=== PATIENT | male | born 1950 | race Caucasian/White ===

== ENCOUNTER 2019-02-02 09:07 | Inpatient (IN) | payer OTHER ==
[2019-02-02] VITALS (8 sets, daily range): BP systolic 102–130; BP diastolic 84–91
[~2019-02-02] VITALS: Ht 177.8 cm; Wt 70.3 kg
--- OUTSIDE RECORDS SUMMARY | 2019-02-02 09:10 | XMS REPORT | Clinical Summary ---
Author Author ARMINDA [facility] Address Unknown Phone Unavailable Care Team Providers Care Supervisor [employer] Name Role Phone Pcp, No PCP Unavailable Allergies Comments Active Allergy Reactions Severity Noted Date Povidone-Iodine (With Rash Low 01/17/2019 Soap) Clopidogrel Itching 01/17/2019 Medications End Date Status Medication Sig Dispensed Refills Start Date Active METOPROLOL SUCCINATE ORAL Take 12.5 mg 0 by mouth 9 daily . Active tamsulosin (FLOMAX) 0.4 Take 0.4 mg 0 mg Cap 24 hr capsule by mouth daily. Active escitalopram oxalate Take 20 mg by 0 (LEXAPRO) 20 MG tablet mouth daily. Active potassium chloride SA Take 20 mEq 0 (K-DUR,KLOR-CON) 20 MEQ by mouth tablet daily. Active apixaban (ELIQUIS) 2.5 mg Take 2.5 mg 0 Tab tablet by mouth 2 (two) times daily. Active nitroglycerin (NITROSTAT) Place 0.4 mg 0 0.4 MG SL tablet under the tongue every 5 (five) minutes as needed for Chest pain Put 1 pill under tongue every 5min as needed for chest pain.No more than 3 doses in 15min.Call 911 if pain is unrelieved 5min after 1st dose . Active atorvastatin (LIPITOR) 40 Take 40 mg by 0 MG tablet mouth daily. 02/01/2020 Active ferrous sulfate 325 (65 Take 1 tablet 60 tablet 11 FE) MG tablet (325 mg 9 total) by mouth 2 (two) times daily. 03/03/2019 Active sacubitril-valsartan Take 1 tablet 60 tablet 0 (ENTRESTO) 24-26 mg Tab by mouth 2 9 (two) times daily for 30 days. 02/02/2020 Active torsemide (DEMADEX) 20 MG Take 1 tablet 30 tablet 11 tablet (20 mg total) 9 by mouth daily. 03/04/2019 Active lactulose (CHRONULAC) 20 Take 30 mLs 900 mL 0 gram/30 mL solution (20 g total) 9 by mouth daily for 30 days. 02/02/2020 Active aspirin 81 MG EC tablet Take 1 tablet 30 tablet 11 (81 mg total) 9 by mouth daily. 02/16/2019 Active magnesium oxide 500 mg Take 1 tablet 45 tablet 0 Tab (500 mg 9 total) by mouth 3 (three) times daily for 15 days. 02/01/2019 Discontinued lisinopril Take 2.5 mg 0 (PRINIVIL,ZESTRIL) 2.5 MG by mouth 9 tablet daily. 02/01/2019 Discontinued furosemide (LASIX) 40 MG Take 40 mg by 0 tablet mouth daily. Active Problems Problem Noted Date Acute on chronic systolic heart failure 01/18/2019 CAD (coronary artery disease) 01/18/2019 Ischemic cardiomyopathy 01/18/2019 Shock liver 01/17/2019 Acute metabolic encephalopathy 01/17/2019 Acute liver failure 01/16/2019 Encounters Care Team Description Date Type Specialty Mary Sevilla MD L CATH & PCI 01/25/2019 Surgery 01/18/2019 Orders Only General Internal Medicine 01/17/2019 Travel Cali Vazquez MD Changela, MD Vee Darnell, MD Fermin Odell, MD Alie Asher, Tiffanie Crystal MD Acute metabolic encephalopathy (Primary Dx); Acute respiratory failure with hypoxemia (HCC); Acute hepatic encephalopathy; Acute pulmonary edema (HCC); Cardiogenic shock (HCC); Shock liver; Abnormal liver enzymes; Acute on chronic systolic (congestive) heart failure (HCC); Coronary artery disease involving red cliff heart without angina pectoris, unspecified vessel or lesion type; Ischemic cardiomyopathy; Atrial fibrillation, unspecified type (HCC); Chronic anticoagulation; Coagulopathy (HCC); 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 pectoris (HCC); Acute on chronic systolic heart failure (HCC); Acute liver failure without hepatic coma; Coronary artery disease involving red cliff coronary artery of red cliff heart without angina pectoris 01/16/2019 Hospital Cardiology - Encounter 02/01/2019 after 02/01/2018 Family History Medical History Relation Name Comments No Known Problem Father Heart disease Mother Relation Name Status Comments Father Mother Social History Date Tobacco Use Types Packs/Day Years Used Current Every Day Smoker 0.25 50 Alcohol Use Drinks/Week oz/Week Comments No Alcohol Habits Answer Date Recorded How often do you have a drink containing alcohol? Never 01/17/2019 How many drinks containing alcohol do you have on Not asked a typical day when you are drinking? How often do you have six or more drinks on one Not asked occasion? Sex Assigned at Date Recorded Not on file Industry Job Start Date Occupation Not on file Not on file Not on file Travel End Travel History Travel Start No recent travel history available. Last Filed Vital Signs Time Taken Vital Sign Reading 02/01/2019 5:16 PM CDT Blood Pressure 93/63 02/01/2019 5:16 PM CDT Pulse 81 02/01/2019 5:16 PM CDT Temperature 36.3 C (97.4 F) 02/01/2019 5:16 PM CDT Respiratory Rate 18 02/01/2019 5:16 PM CDT Oxygen Saturation 97% 01/16/2019 11:00 PM CDT Inhaled Oxygen 100% Concentration 02/01/2019 7:29 AM CDT Weight 68.5 kg (151 lb) 01/17/2019 8:15 PM CDT Height 177.8 cm (5' 10") 02/01/2019 7:29 AM CDT Body Mass Index 21.67 Plan of Treatment Not on file Procedures Comments Procedure Name Priority Date/Time Associated Diagnosis POCT-GLUCOSE METER Routine 02/01/2019 6:04 PM CDT XR CHEST 1 VIEW Routine 02/01/2019 PORTABLE/BEDSIDE 9:12 AM CDT POCT-GLUCOSE METER Routine 02/01/2019 7:35 AM CDT CBC W/PLT COUNT & AUTO Routine 02/01/2019 DIFFERENTIAL 4:37 AM CDT OXYGEN SATURATION, STAT 02/01/2019 MEASURED 4:37 AM CDT MAGNESIUM Routine 02/01/2019 4:37 AM CDT COMPREHENSIVE METABOLIC Routine 02/01/2019 PANEL 4:37 AM CDT CBC W/PLT COUNT & AUTO Routine 02/01/2019 DIFFERENTIAL 4:37 AM CDT POCT-GLUCOSE METER Routine 01/31/2019 11:56 PM CDT POCT-GLUCOSE METER Routine 01/31/2019 8:04 PM CDT POCT-GLUCOSE METER Routine 01/31/2019 12:54 PM CDT XR CHEST 1 VIEW Routine 01/31/2019 PORTABLE/BEDSIDE 8:29 AM CDT (CELLAVISION MANUAL DIFF) Routine 01/31/2019 5:13 AM CDT CBC W/PLT COUNT & AUTO Routine 01/31/2019 DIFFERENTIAL 5:13 AM CDT OXYGEN SATURATION, STAT 01/31/2019 MEASURED 5:13 AM CDT MAGNESIUM Routine 01/31/2019 5:13 AM CDT COMPREHENSIVE METABOLIC Routine 01/31/2019 PANEL 5:13 AM CDT CBC W/PLT COUNT & AUTO Routine 01/31/2019 DIFFERENTIAL 5:13 AM CDT POCT-GLUCOSE METER Routine 01/30/2019 9:13 PM CDT POCT-GLUCOSE METER Routine 01/30/2019 5:08 PM CDT POCT-GLUCOSE METER Routine 01/30/2019 12:51 PM CDT XR CHEST 1 VIEW Routine 01/30/2019 PORTABLE/BEDSIDE 8:44 AM CDT CBC W/PLT COUNT & AUTO Routine 01/30/2019 DIFFERENTIAL 3:53 AM CDT B-TYPE NATRIURETIC FACTOR Routine 01/30/2019 (BNP) 3:53 AM CDT OXYGEN SATURATION, STAT 01/30/2019 MEASURED 3:53 AM CDT MAGNESIUM Routine 01/30/2019 3:53 AM CDT COMPREHENSIVE METABOLIC Routine 01/30/2019 PANEL 3:53 AM CDT CBC W/PLT COUNT & AUTO Routine 01/30/2019 DIFFERENTIAL 3:53 AM CDT POCT-GLUCOSE METER Routine 01/29/2019 9:09 PM CDT POCT-GLUCOSE METER Routine 01/29/2019 5:10 PM CDT POCT-GLUCOSE METER Routine 01/29/2019 1:48 PM CDT POCT-GLUCOSE METER Routine 01/29/2019 8:27 AM CDT XR CHEST 1 VIEW Routine 01/29/2019 PORTABLE/BEDSIDE 6:05 AM CDT (CELLAVISION MANUAL DIFF) Routine 01/29/2019 4:30 AM CDT CBC W/PLT COUNT & AUTO Routine 01/29/2019 DIFFERENTIAL 4:30 AM CDT OXYGEN SATURATION, STAT 01/29/2019 MEASURED 4:30 AM CDT MAGNESIUM Routine 01/29/2019 4:30 AM CDT COMPREHENSIVE METABOLIC Routine 01/29/2019 PANEL 4:30 AM CDT CBC W/PLT COUNT & AUTO Routine 01/29/2019 DIFFERENTIAL 4:30 AM CDT POCT-GLUCOSE METER Routine 01/28/2019 9:03 PM CDT POCT-GLUCOSE METER Routine 01/28/2019 5:52 PM CDT POCT-GLUCOSE METER Routine 01/28/2019 1:46 PM CDT XR CHEST 1 VIEW Routine 01/28/2019 PORTABLE/BEDSIDE 9:14 AM CDT POCT-GLUCOSE METER Routine 01/28/2019 8:56 AM CDT CBC W/PLT COUNT & AUTO Routine 01/28/2019 DIFFERENTIAL 5:13 AM CDT OXYGEN SATURATION, STAT 01/28/2019 MEASURED 5:13 AM CDT MAGNESIUM Routine 01/28/2019 5:13 AM CDT COMPREHENSIVE METABOLIC Routine 01/28/2019 PANEL 5:13 AM CDT CBC W/PLT COUNT & AUTO Routine 01/28/2019 DIFFERENTIAL 5:13 AM CDT POCT-GLUCOSE METER Routine 01/27/2019 9:34 PM CDT POCT-GLUCOSE METER Routine 01/27/2019 6:24 PM CDT POCT-GLUCOSE METER Routine 01/27/2019 5:40 PM CDT POCT-GLUCOSE METER Routine 01/27/2019 1:19 PM CDT POCT-GLUCOSE METER Routine 01/27/2019 8:41 AM CDT XR CHEST 1 VIEW Routine 01/27/2019 PORTABLE/BEDSIDE 7:11 AM CDT CBC W/PLT COUNT & AUTO Routine 01/27/2019 DIFFERENTIAL 5:07 AM CDT OXYGEN SATURATION, STAT 01/27/2019 MEASURED 5:07 AM CDT MAGNESIUM Routine 01/27/2019 5:07 AM CDT COMPREHENSIVE METABOLIC Routine 01/27/2019 PANEL 5:07 AM CDT CBC W/PLT COUNT & AUTO Routine 01/27/2019 DIFFERENTIAL 5:07 AM CDT POCT-GLUCOSE METER Routine 01/26/2019 10:11 PM CDT XR CHEST 1 VIEW Routine 01/26/2019 PORTABLE/BEDSIDE 9:32 AM CDT CBC W/PLT COUNT & AUTO Routine 01/26/2019 DIFFERENTIAL 6:47 AM CDT MAGNESIUM Routine 01/26/2019 6:47 AM CDT COMPREHENSIVE METABOLIC Routine 01/26/2019 PANEL 6:47 AM CDT CBC W/PLT COUNT & AUTO Routine 01/26/2019 DIFFERENTIAL 6:47 AM CDT POCT-GLUCOSE METER Routine 01/25/2019 9:47 PM CDT L CATH & PCI 01/25/2019 Heart failure, 2:00 PM CDT unspecified HF chronicity, unspecified heart failure type (HCC) XR CHEST 1 VIEW Routine 01/25/2019 PORTABLE/BEDSIDE 10:17 AM CDT POCT-GLUCOSE METER Routine 01/25/2019 9:31 AM CDT CBC W/PLT COUNT & AUTO Routine 01/25/2019 DIFFERENTIAL 4:27 AM CDT FERRITIN Routine 01/25/2019 4:27 AM CDT IRON, TIBC, % SAT. Routine 01/25/2019 (WITHOUT FERRITIN) 4:27 AM CDT OXYGEN SATURATION, STAT 01/25/2019 MEASURED 4:27 AM CDT MAGNESIUM Routine 01/25/2019 4:27 AM CDT COMPREHENSIVE METABOLIC Routine 01/25/2019 PANEL 4:27 AM CDT CBC W/PLT COUNT & AUTO Routine 01/25/2019 DIFFERENTIAL 4:27 AM CDT POCT-GLUCOSE METER Routine 01/24/2019 9:32 PM CDT POCT-GLUCOSE METER Routine 01/24/2019 5:32 PM CDT POCT-GLUCOSE METER Routine 01/24/2019 11:50 AM CDT XR CHEST 1 VIEW Routine 01/24/2019 PORTABLE/BEDSIDE 8:46 AM CDT POCT-GLUCOSE METER Routine 01/24/2019 8:22 AM CDT CBC W/PLT COUNT & AUTO Routine 01/24/2019 DIFFERENTIAL 4:51 AM CDT OXYGEN SATURATION, STAT 01/24/2019 MEASURED 4:51 AM CDT MAGNESIUM Routine 01/24/2019 4:51 AM CDT COMPREHENSIVE METABOLIC Routine 01/24/2019 PANEL 4:51 AM CDT CBC W/PLT COUNT & AUTO Routine 01/24/2019 DIFFERENTIAL 4:51 AM CDT POCT-GLUCOSE METER Routine 01/23/2019 10:05 PM CDT POCT-GLUCOSE METER Routine 01/23/2019 4:02 PM CDT POCT-GLUCOSE METER Routine 01/23/2019 11:51 AM CDT POCT-GLUCOSE METER Routine 01/23/2019 7:34 AM CDT CBC W/PLT COUNT & AUTO Routine 01/23/2019 DIFFERENTIAL 4:00 AM CDT OXYGEN SATURATION, STAT 01/23/2019 MEASURED 4:00 AM CDT PHOSPHORUS Routine 01/23/2019 4:00 AM CDT MAGNESIUM Routine 01/23/2019 4:00 AM CDT COMPREHENSIVE METABOLIC Routine 01/23/2019 PANEL 4:00 AM CDT CBC W/PLT COUNT & AUTO Routine 01/23/2019 DIFFERENTIAL 4:00 AM CDT XR CHEST 1 VIEW Routine 01/23/2019 PORTABLE/BEDSIDE 3:19 AM CDT POCT-GLUCOSE METER Routine 01/22/2019 10:32 PM CDT POCT-GLUCOSE METER Routine 01/22/2019 6:47 PM CDT POCT-GLUCOSE METER Routine 01/22/2019 1:53 PM CDT MAGNESIUM Routine 01/22/2019 9:15 AM CDT POTASSIUM Routine 01/22/2019 9:15 AM CDT POCT-GLUCOSE METER Routine 01/22/2019 7:53 AM CDT XR CHEST 1 VIEW Routine 01/22/2019 PORTABLE/BEDSIDE 3:50 AM CDT CBC W/PLT COUNT & AUTO Routine 01/22/2019 DIFFERENTIAL 2:45 AM CDT VITAMIN B12 AND FOLATE Routine 01/22/2019 2:45 AM CDT OXYGEN SATURATION, STAT 01/22/2019 MEASURED 2:45 AM CDT PHOSPHORUS Routine 01/22/2019 2:45 AM CDT MAGNESIUM Routine 01/22/2019 2:45 AM CDT COMPREHENSIVE METABOLIC Routine 01/22/2019 PANEL 2:45 AM CDT CBC W/PLT COUNT & AUTO Routine 01/22/2019 DIFFERENTIAL 2:45 AM CDT POCT-GLUCOSE METER Routine 01/21/2019 9:09 PM CDT LACTIC ACID, VENOUS Routine 01/21/2019 8:25 PM CDT LACTIC ACID, VENOUS Routine 01/21/2019 5:17 PM CDT OXYGEN SATURATION, STAT 01/21/2019 MEASURED 1:52 PM CDT POCT-GLUCOSE METER Routine 01/21/2019 12:23 PM CDT MAGNESIUM Routine 01/21/2019 11:02 AM CDT POTASSIUM Routine 01/21/2019 11:02 AM CDT POCT-GLUCOSE METER Routine 01/21/2019 7:36 AM CDT CBC W/PLT COUNT & AUTO Routine 01/21/2019 DIFFERENTIAL 4:11 AM CDT PHOSPHORUS Routine 01/21/2019 4:11 AM CDT PROTHROMBIN TIME/INR Routine 01/21/2019 4:11 AM CDT MAGNESIUM Routine 01/21/2019 4:11 AM CDT COMPREHENSIVE METABOLIC Routine 01/21/2019 PANEL 4:11 AM CDT CBC W/PLT COUNT & AUTO Routine 01/21/2019 DIFFERENTIAL 4:11 AM CDT XR CHEST 1 VIEW Routine 01/21/2019 PORTABLE/BEDSIDE 3:19 AM CDT POCT-GLUCOSE METER Routine 01/20/2019 10:59 PM CDT XR CHEST 1 VIEW STAT 01/20/2019 PORTABLE/BEDSIDE 8:29 PM CDT POCT-GLUCOSE METER Routine 01/20/2019 5:23 PM CDT MAGNESIUM Routine 01/20/2019 2:29 PM CDT POTASSIUM Routine 01/20/2019 2:29 PM CDT NM MYOCARDIAL VIABILITY Routine 01/20/2019 EVALUATION PET 1:48 PM CDT POCT-GLUCOSE METER Routine 01/20/2019 1:13 PM CDT POCT-GLUCOSE METER Routine 01/20/2019 11:27 AM CDT POCT-GLUCOSE METER Routine 01/20/2019 9:59 AM CDT XR CHEST 1 VIEW Routine 01/20/2019 PORTABLE/BEDSIDE 7:45 AM CDT POCT-GLUCOSE METER Routine 01/20/2019 7:42 AM CDT CBC W/PLT COUNT & AUTO Routine 01/20/2019 DIFFERENTIAL 3:34 AM CDT OXYGEN SATURATION, ADRYAN 01/20/2019 MEASURED 3:34 AM CDT PROTHROMBIN TIME/INR Routine 01/20/2019 3:34 AM CDT PHOSPHORUS Routine 01/20/2019 3:34 AM CDT MAGNESIUM Routine 01/20/2019 3:34 AM CDT BILIRUBIN, DIRECT Routine 01/20/2019 3:34 AM CDT COMPREHENSIVE METABOLIC Routine 01/20/2019 PANEL 3:34 AM CDT CBC W/PLT COUNT & AUTO Routine 01/20/2019 DIFFERENTIAL 3:34 AM CDT POCT-GLUCOSE METER Routine 01/19/2019 9:42 PM CDT POCT-GLUCOSE METER Routine 01/19/2019 6:29 PM CDT POCT-GLUCOSE METER Routine 01/19/2019 3:33 PM CDT MAGNESIUM Routine 01/19/2019 2:54 PM CDT POTASSIUM Routine 01/19/2019 2:54 PM CDT XR CHEST 1 VIEW Routine 01/19/2019 PORTABLE/BEDSIDE 1:10 PM CDT POCT-GLUCOSE METER Routine 01/19/2019 5:51 AM CDT CBC W/PLT COUNT & AUTO Routine 01/19/2019 DIFFERENTIAL 5:26 AM CDT OXYGEN SATURATION, ADRYAN 01/19/2019 MEASURED 5:26 AM CDT PROTHROMBIN TIME/INR Routine 01/19/2019 5:26 AM CDT PHOSPHORUS Routine 01/19/2019 5:26 AM CDT MAGNESIUM Routine 01/19/2019 5:26 AM CDT BILIRUBIN, DIRECT Routine 01/19/2019 5:26 AM CDT COMPREHENSIVE METABOLIC Routine 01/19/2019 PANEL 5:26 AM CDT CBC W/PLT COUNT & AUTO Routine 01/19/2019 DIFFERENTIAL 5:26 AM CDT POCT-GLUCOSE METER Routine 01/18/2019 9:43 PM CDT TRANSFUSION SERVICE 01/18/2019 REPORT - SCAN 6:06 PM CDT POCT-GLUCOSE METER Routine 01/18/2019 5:48 PM CDT ECG 12-LEAD Routine 01/18/2019 2:30 PM CDT Procedure Note - Interface, External Ris In - 01/18/2019 2:45 PM CDT Ventricula r Rate 87 BPM Atrial Rate 105 BPM QRS Duration 178 ms Q-T Interval 444 ms QTC Calculatio n(Bazett) 534 ms P [place] 108 degrees R [place] 162 degrees T [place] -7 degrees AV dual-paced rhythm with frequent ventricula r-paced complexes and with occasional Premature ventricula r complexes Biventricu lar pacemaker detected Abnormal ECG ECG 12-LEAD ADRYAN 01/18/2019 2:30 PM CDT OXYGEN SATURATION, Routine 01/18/2019 MEASURED 1:46 PM CDT CREATINE KINASE (CK) Routine 01/18/2019 1:45 PM CDT AMMONIA Routine 01/18/2019 1:45 PM CDT LACTIC ACID, VENOUS Routine 01/18/2019 1:45 PM CDT XR CHEST 1 VIEW Routine 01/18/2019 PORTABLE/BEDSIDE 1:25 PM CDT POCT-GLUCOSE METER Routine 01/18/2019 7:59 AM CDT US DOPPLER Routine 01/18/2019 7:45 AM CDT US ABDOMEN COMPLETE Routine 01/18/2019 7:45 AM CDT CBC W/PLT COUNT & AUTO Routine 01/18/2019 DIFFERENTIAL 3:16 AM CDT PHOSPHORUS Routine 01/18/2019 3:16 AM CDT MAGNESIUM Routine 01/18/2019 3:16 AM CDT BILIRUBIN, DIRECT Routine 01/18/2019 3:16 AM CDT COMPREHENSIVE METABOLIC Routine 01/18/2019 PANEL 3:16 AM CDT CBC W/PLT COUNT & AUTO Routine 01/18/2019 DIFFERENTIAL 3:16 AM CDT POCT-GLUCOSE METER Routine 01/17/2019 10:10 PM CDT ECHOCARDIOGRAM REPORT - 01/17/2019 SCAN 9:24 PM CDT POCT-GLUCOSE METER Routine 01/17/2019 6:11 PM CDT OXYGEN SATURATION, Routine 01/17/2019 MEASURED 6:06 PM CDT XR CHEST 1 VIEW STAT 01/17/2019 PORTABLE/BEDSIDE 6:02 PM CDT XR CHEST 1 VIEW STAT 01/17/2019 PORTABLE/BEDSIDE 5:50 PM CDT ICD CHECK Routine 01/17/2019 3:30 PM CDT BASIC METABOLIC PANEL (7) Routine 01/17/2019 1:54 PM CDT PROTHROMBIN TIME/INR Routine 01/17/2019 1:54 PM CDT POCT-GLUCOSE METER Routine 01/17/2019 1:07 PM CDT LACTIC ACID, VENOUS Routine 01/17/2019 12:33 PM CDT TROPONIN I Routine 01/17/2019 12:33 PM CDT MRSA SCREEN Routine 01/17/2019 10:29 AM CDT ACETAMINOPHEN LEVEL Routine 01/17/2019 10:12 AM CDT PROCALCITONIN Routine 01/17/2019 10:12 AM CDT POCT-GLUCOSE METER Routine 01/17/2019 9:58 AM CDT AMMONIA Routine 01/17/2019 9:13 AM CDT CBC W/PLT COUNT & AUTO Routine 01/17/2019 DIFFERENTIAL 5:54 AM CDT MAGNESIUM Routine 01/17/2019 5:54 AM CDT BASIC METABOLIC PANEL (7) Routine 01/17/2019 5:54 AM CDT CBC W/PLT COUNT & AUTO Routine 01/17/2019 DIFFERENTIAL 5:54 AM CDT ACETAMINOPHEN LEVEL STAT 01/17/2019 5:54 AM CDT LACTIC ACID, VENOUS Routine 01/17/2019 5:54 AM CDT TROPONIN I Routine 01/17/2019 5:54 AM CDT 2D ECHO W/ DOPPLER STAT 01/17/2019 (CW/PW/COLOR) 1:59 AM CDT ABORH, MANUAL STAT 01/17/2019 1:01 AM CDT CREATINE KINASE (CK) STAT 01/17/2019 1:01 AM CDT MAGNESIUM STAT 01/17/2019 1:01 AM CDT PHOSPHORUS STAT 01/17/2019 1:01 AM CDT CREATININE, RANDOM URINE Routine 01/17/2019 12:14 AM CDT UREA NITROGEN, RANDOM Routine 01/17/2019 URINE 12:14 AM CDT SODIUM, RANDOM URINE Routine 01/17/2019 12:14 AM CDT RAPID DRUG SCREEN, URINE Routine 01/17/2019 12:14 AM CDT T SPOT TB Routine 01/17/2019 12:07 AM CDT BLOOD CULTURE Routine 01/17/2019 12:06 AM CDT TYPE AND SCREEN, STAT 01/17/2019 AUTOMATED 12:01 AM CDT EBV ANTIBODY, IGM Routine 01/17/2019 12:01 AM CDT EBV ANTIBODY, IGG Routine 01/17/2019 12:01 AM CDT CYTOMEGALOVIRUS ANTIBODY, Routine 01/17/2019 IGM 12:01 AM CDT CYTOMEGALOVIRUS ANTIBODY, Routine 01/17/2019 IGG 12:01 AM CDT RPR Routine 01/17/2019 12:01 AM CDT HEPATITIS B CORE Routine 01/17/2019 ANTIBODY, TOTAL 12:01 AM CDT HEPATITIS B SURFACE Routine 01/17/2019 ANTIBODY 12:01 AM CDT ETHANOL Routine 01/17/2019 12:01 AM CDT CERULOPLASMIN Routine 01/17/2019 12:01 AM CDT [id number]\\, Routine 01/17/2019 SERUM 12:01 AM CDT FERRITIN Routine 01/17/2019 12:01 AM CDT IRON, TIBC, % SAT. Routine 01/17/2019 (WITHOUT FERRITIN) 12:01 AM CDT MITOCHONDRIA M2 ANTIBODY Routine 01/17/2019 (IGG) 12:01 AM CDT ACTIN (SMOOTH MUSCLE) Routine 01/17/2019 ANTIBODY, IGG 12:01 AM CDT ANTI-NUCLEAR ANTIBODY Routine 01/17/2019 (GELY) 12:01 AM CDT HIV-1 ANTIGEN WITH STAT 01/17/2019 HIV-1/2 ANTIBODY 12:01 AM CDT FIBRINOGEN STAT 01/17/2019 12:01 AM CDT HEPATITIS PANEL, ACUTE STAT 01/17/2019 12:01 AM CDT AMMONIA STAT 01/17/2019 12:01 AM CDT XR CHEST 1 VIEW STAT 01/16/2019 PORTABLE/BEDSIDE 11:43 PM CDT URINALYSIS W/ REFLEX Routine 01/16/2019 URINE CULTURE 11:18 PM CDT PROTHROMBIN TIME/INR Routine 01/16/2019 11:15 PM CDT PT/APTT Routine 01/16/2019 11:15 PM CDT B-TYPE NATRIURETIC FACTOR Routine 01/16/2019 (BNP) 11:15 PM CDT BLOOD GAS, ARTERIAL STAT 01/16/2019 11:15 PM CDT BLOOD CULTURE Routine 01/16/2019 11:15 PM CDT CBC W/PLT COUNT & AUTO STAT 01/16/2019 DIFFERENTIAL 11:12 PM CDT LACTIC ACID, VENOUS Routine 01/16/2019 11:12 PM CDT CBC W/PLT COUNT & AUTO STAT 01/16/2019 DIFFERENTIAL 11:12 PM CDT TROPONIN I STAT 01/16/2019 11:12 PM CDT COMPREHENSIVE METABOLIC STAT 01/16/2019 PANEL 11:12 PM CDT POCT-GLUCOSE METER Routine 01/16/2019 10:22 PM CDT after 02/01/2018 Results * POC-Glucose meter (02/01/2019 6:04 PM CDT) Only the most recent of 57 results within the time period is included. POC-Glucose Meter 128 (H)Comment: TESTED AT 70 - 110 mg/dL [facility] [address] [facility] [id number] Specimen Blood Performing Organization Address City/State/Zipcode Phone Number [facility] [address] [place] [address] [facility] * XR chest 1 view portable / bedside (02/01/2019 9:12 AM CDT) Only the most recent of 19 results within the time period is included. Specimen Narrative Performed At FINAL REPORT [facility] Portable chest, 02/01/2019 COMPARISON: 01/31/2019 There is been improvement in the appearance of the chest since prior study with essentially total resolution of the interstitial edema. Tiny right pleural effusion is smaller than on the prior study. Heart size remains borderline enlarged. Transvenous and epicardial pacing leads remain. A right-sided PICC line is again seen with its tip in the midsuperior vena cava. Signed: Ines Flores MD Report Verified Date/Time:02/01/2019 10:34:00 Reading Location: [facility] Radiology Reading Room Procedure Note Interface, External Ris In - 02/01/2019 10:36 AM CDT FINAL REPORT Portable chest, 02/01/2019 COMPARISON: 01/31/2019 There is been improvement in the appearance of the chest since prior study with essentially total resolution of the interstitial edema. Tiny right pleural effusion is smaller than on the prior study. Heart size remains borderline enlarged. Transvenous and epicardial pacing leads remain. A right-sided PICC line is again seen with its tip in the midsuperior vena cava. Signed: Ines Flores MD Report Verified Date/Time: 02/01/2019 10:34:00 Reading Location: [facility] Radiology Reading Room Performing Organization Address City/State/Zipcode Phone Number [facility] * Oxygen saturation, measured (02/01/2019 4:37 AM CDT) Only the most recent of 15 results within the time period is included. O2 Saturation (Measured) 57.7 % [facility] Specimen Blood Narrative Performed At PICC line [facility] Performing Organization Address City/State/Zipcode Phone Number [facility] [address] [place] [address] [facility] * CBC with platelet count + automated diff (02/01/2019 4:37 AM CDT) Only the most recent of 17 results within the time period is included. WBC 4.6 3.5 - 10.5 K/L [facility] RBC 3.63 (L) 4.63 - 6.08 M/L [facility] Hemoglobin 10.8 (L) 13.7 - 17.5 GM/DL [facility] Hematocrit 34.7 (L) 40.1 - 51.0 % [facility] MCV 95.6 (H) 79.0 - 92.2 fL [facility] MCH 29.8 25.7 - 32.2 pg [facility] MCHC 31.1 (L) 32.3 - 36.5 GM/DL [facility] RDW 16.8 (H) 11.6 - 14.4 % [facility] Platelets 177 150 - 450 K/CU MM [facility] MPV 10.2 9.4 - 12.4 fL [facility] nRBC 0 0 - 0 /100 WBC [facility] % Neutros 53 % [facility] % Lymphs 32 % [facility] % Monos 9 % [facility] % Eos 5 % [facility] % Baso 1 % [facility] # Neutros 2.43 1.78 - 5.38 K/L [facility] # Lymphs 1.47 1.32 - 3.57 K/L [facility] # Monos 0.39 0.30 - 0.82 K/L [facility] # Eos 0.21 0.04 - 0.54 K/L [facility] # Baso 0.06 0.01 - 0.08 K/L [facility] Immature 0 0 - 1 % [facility] Specimen Blood Performing Organization Address City/State/Zipcode Phone Number [address] * Magnesium (02/01/2019 4:37 AM CDT) Only the most recent of 21 results within the time period is included. Magnesium 2.0 1.6 - 2.6 mg/dL [facility] Specimen Blood Performing Organization Address City/State/Zipcode Phone Number [address] * Comprehensive metabolic panel (02/01/2019 4:37 AM CDT) Only the most recent of 16 results within the time period is included. Protein, Total 5.8 (L) 6.0 - 8.3 gm/dL [facility] Albumin 3.0 (L) 3.5 - 5.0 g/dL [facility] Alkaline Phosphatase 66 40 - 150 U/L [facility] Total Bilirubin 1.0 0.2 - 1.2 mg/dL [facility] Sodium 139 136 - 145 meq/L [facility] Potassium 4.0 3.5 - 5.1 meq/L [facility] Chloride 106 98 - 107 meq/L [facility] CO2 27 22 - 29 meq/L [facility] BUN 20 7 - 21 mg/dL [facility] Creatinine 1.06 0.57 - 1.25 mg/dL [facility] Glucose 102 70 - 105 mg/dL [facility] Calcium 8.9 8.4 - 10.2 mg/dL [facility] AST 25 5 - 34 U/L [facility] ALT 38 6 - 55 U/L [facility] EGFR 69Comment: ESTIMATED GFR IS mL/min/1.73 sq m NOT ACCURATE CREATININE [facility] CLEARANCE IN PREDICTING GLOMERULAR FILTRATION RATE. ESTIMATED GFR IS NOT APPLICABLE FOR DIALYSIS PATIENTS. Specimen Blood Performing Organization Address City/State/Zipcode Phone Number [facility] [address] [place] [address] MEDICAL [facility] * Manual Differential (01/31/2019 5:13 AM CDT) Only the most recent of 2 results within the time period is included. % Neutros 69 % [facility] % Lymphs 26 % [facility] % Monos 2 % [facility] % Eos 3 % [facility] # Neutros 4.00 1.78 - 5.38 K/ul [facility] # Lymphs 1.51 1.32 - 3.57 K/ul [facility] # Monos 0.12 (L) 0.30 - 0.82 K/uL [facility] # Eos 0.17 0.04 - 0.54 K/uL [facility] Total Counted 100 [facility] WBC Morphology Normal [facility] Giant Platelet Present [facility] Poikilocytes 1+ few [facility] Artifact Present [facility] Platelet Conc Adequate [facility] Specimen Blood Narrative Performed At Received comment: User comments: [facility] Slide comments: Performing Organization Address City/[facility] [place] [address] [phone] [place] [address] * B-type Natriuretic Factor (BNP) (01/30/2019 3:53 AM CDT) Only the most recent of 2 results within the time period is included. BNP 1,112 (H) 0 - 100 pg/mL [facility] Specimen Blood Performing Organization Address [facility] [place] [address] [phone] [place] [address] * Iron, TIBC, % sat. (without ferritin) (01/25/2019 4:27 AM CDT) Only the most recent of 2 results within the time period is included. Iron 92.0 40.0 - 160.0 ug/dL [facility] TIBC 300 250 - 450 ug/dL [facility] Iron % Saturation 31 20 - 55 % [facility] Specimen Blood Performing Organization Address City/[facility] Services[facility] Phone Number [address] [phone] [facility] * Ferritin (01/25/2019 4:27 AM CDT) Only the most recent of 2 results within the time period is included. Ferritin 183 5 - 275 ng/mL [facility] Specimen Blood Performing Organization Address City/[facility] Phone Number [address] [phone] [facility] * Phosphorus (01/23/2019 4:00 AM CDT) Only the most recent of 7 results within the time period is included. Phosphorus 2.8Comment: Specimen slightly 2.3 - 4.7 mg/dL [facility] [place] [place] Specimen Blood Performing Organization Address [facility] Phone Number [address] * Potassium (01/22/2019 9:15 AM CDT) Only the most recent of 4 results within the time period is included. Potassium 4.3Comment: Specimen slightly 3.5 - 5.1 meq/L [facility] [place] [place] Specimen Blood Performing Organization Address [facility] Phone Number [address] * Vitamin B12 and Folate (01/22/2019 2:45 AM CDT) Vitamin B12 1,201 (H) 213 - 816 pg/mL [facility] Folate 13.5 >=7.0 ng/mL [facility] Specimen Blood Performing Organization Address [facility] Phone Number [address] * Lactic acid, venous (01/21/2019 8:25 PM CDT) Only the most recent of 6 results within the time period is included. Lactate, Venous 2.0Comment: Specimen slightly 0.5 - 2.2 mmol/L [facility] [place] [place] Specimen Blood Performing Organization Address [facility] Phone Number [address] * Prothrombin time/INR (01/21/2019 4:11 AM CDT) Only the most recent of 5 results within the time period is included. Protime 18.5 (H) 11.7 - 14.7 seconds [facility] INR 1.5 <=5.9 [facility] Specimen Blood Narrative Performed At RECOMMENDED COUMADIN/WARFARIN INR THERAPY RANGES STANDARD DOSE: 2.0 - 3.0 Includes: PROPHYLAXIS for venous thrombosis, [facility] systemic embolization; TREATMENT for venous thrombosis and/or pulmonary embolus. HIGH RISK: Target INR is 2.5-3.5 for patients with mechanical heart valves. Performing Organization Address City/State/Zipcode Phone Number [facility] [address] [place] [address] [facility] * NM PET Cardiac Viability (01/20/2019 1:48 PM CDT) Specimen Narrative Performed At FINAL REPORT [facility] PROCEDURE: MYOCARDIAL METABOLISM PET IMAGING with MYOCARDIAL PERFUSION PET IMAGING (Rest-Only) CPT CODE: 89893, 30363 INDICATION: ischemic cardiomyopathy, assess myocardial viability CARDIOVASCULAR PROFILE: CAD History: Known CAD, ACB, ischemic cardiomyopathy, heart failure with reduced ejection fraction Symptoms: Shortness of breath Risk Factors: CAD, CVA BMI: 20 IMAGING PROTOCOL: Limited low-dose CT imaging was performed for attenuation correction. 40.1 mCi of Rb-82 chloride was injected intravenously at rest, and gated PET images were obtained. Then, dextrose and insulin were administered intravenously per protocol, and 10.8 mCi of F-18 FDG was injected intravenously at rest. Limited low-dose CT imaging was repeated for attenuation correction, and PET images were obtained. REST FINDINGS: Perfusion: There is a marked severity perfusion defect of the basal to mid inferior and inferolateral LV There is a moderate severity perfusion perfusion defect of the mid to apical anterior, apical, and apical septal segments. Metabolism: There is absence of FDG uptake in the mid and basal inferior and inferolateral LV. The remaining segments have lesser decrease in FDG uptake which corresponds to perfusion. Wall Motion: Severe basal to mid inferior and inferolateral hypokinesis, moderate hypokinesis in the remaining segments (LVEF 28%). LV Volume: Increased. RV Volume: Normal. IMPRESSION: 1. Abnormal study. 2. Abnormal myocardial perfusion. There is a large size, marked severity perfusion abnormality in the inferior and inferolateral LV. There is a large size, moderate severity perfusion abnormality in the mid to apical anterior and anterolateral LV. Abnormal myocardial metabolism. There is a large size, marked severity abnormality of glucose metabolism in the mid to basal inferior and inferolateral LV which is nonviable. The remaining segments, while impaired, appear viable. 3. Markedly decreased resting LVEF of 28%. Wall motion and modalities as noted above 4. Normal extracardiac tracer distribution. 5. There is no prior study for comparison. Signed: Mandeep Pichardo MD Report Verified Date/Time:01/20/2019 16:11:04 Reading Location: [address] Reading Room Procedure Note Interface, External Ris In - 01/20/2019 4:13 PM CDT FINAL REPORT PROCEDURE: MYOCARDIAL METABOLISM PET IMAGING with MYOCARDIAL PERFUSION PET IMAGING (Rest-Only) CPT CODE: 70827, 74163 INDICATION: ischemic cardiomyopathy, assess myocardial viability CARDIOVASCULAR PROFILE: CAD History: Known CAD, ACB, ischemic cardiomyopathy, heart failure with reduced ejection fraction Symptoms: Shortness of breath Risk Factors: CAD, CVA BMI: 20 IMAGING PROTOCOL: Limited low-dose CT imaging was performed for attenuation correction. 40.1 mCi of Rb-82 chloride was injected intravenously at rest, and gated PET images were obtained. Then, dextrose and insulin were administered intravenously per protocol, and 10.8 mCi of F-18 FDG was injected intravenously at rest. Limited low-dose CT imaging was repeated for attenuation correction, and PET images were obtained. REST FINDINGS: Perfusion: There is a marked severity perfusion defect of the basal to mid inferior and inferolateral LV There is a moderate severity perfusion perfusion defect of the mid to apical anterior, apical, and apical septal segments. Metabolism: There is absence of FDG uptake in the mid and basal inferior and inferolateral LV. The remaining segments have lesser decrease in FDG uptake which corresponds to perfusion. Wall Motion: Severe basal to mid inferior and inferolateral hypokinesis, moderate hypokinesis in the remaining segments (LVEF 28%). LV Volume: Increased. RV Volume: Normal. IMPRESSION: 1. Abnormal study. 2. Abnormal myocardial perfusion. There is a large size, marked severity perfusion abnormality in the inferior and inferolateral LV. There is a large size, moderate severity perfusion abnormality in the mid to apical anterior and anterolateral LV. Abnormal myocardial metabolism. There is a large size, marked severity abnormality of glucose metabolism in the mid to basal inferior and inferolateral LV which is nonviable. The remaining segments, while impaired, appear viable. 3. Markedly decreased resting LVEF of 28%. Wall motion and modalities as noted above 4. Normal extracardiac tracer distribution. 5. There is no prior study for comparison. Signed: Mandeep Pichardo MD Report Verified Date/Time: 01/20/2019 16:11:04 Reading Location: [address] Reading Room Performing Organization Address City/[facility] Phone Number [facility] * Bilirubin, direct (01/20/2019 3:34 AM CDT) Only the most recent of 3 results within the time period is included. Bilirubin, Direct 1.6 (H) 0.1 - 0.5 mg/dL [facility] Specimen Blood Performing Organization Address [facility] Phone Number [place] [phone] [place] [address] [phone] [place] [address] * TRANSFUSION SERVICE REPORT - SCAN (01/18/2019 6:06 PM CDT) Narrative Performed At * ECG 12 lead (01/18/2019 2:30 PM CDT) Specimen Narrative Performed At Ventricular Rate 87 BPM GE MUSE Atrial Rate 105 BPM QRS Duration 178 ms Q-T Interval 444 ms QTC Calculation(Bazett) 534 ms P [place] 108 degrees R [place] 162 degrees T [place] -7 degrees AV dual-paced rhythm with frequent ventricular-paced complexes and with occasional Premature ventricular complexes Biventricular pacemaker detected Abnormal ECG Confirmed by MD Anthony Roberto ([id number]) on 01/19/2019 11:02:40 AM Procedure Note Interface, External Ris In - 01/19/2019 11:02 AM CDT Ventricular Rate 87 BPM Atrial Rate 105 BPM QRS Duration 178 ms Q-T Interval 444 ms QTC Calculation(Bazett) 534 ms P [place] 108 degrees R [place] 162 degrees T [place] -7 degrees AV dual-paced rhythm with frequent ventricular-paced complexes and with occasional Premature ventricular complexes Biventricular pacemaker detected Abnormal ECG Confirmed by MD Anthony Roberto ([id number]) on 01/19/2019 11:02:40 AM Performing Organization Address City/State/Zipcode Phone Number [facility] * Creatine Kinase (CK) (01/18/2019 1:45 PM CDT) Only the most recent of 2 results within the time period is included. Total CK 764 (H) 29 - 200 U/L [facility] Specimen Blood Performing Organization Address City/[facility]/Zipcode Phone Number [facility] [address] [place] [address] [facility] * Ammonia (01/18/2019 1:45 PM CDT) Only the most recent of 3 results within the time period is included. Ammonia 56Comment: Specimen moderately 18 - 72 mol/L hemolyzed [facility] Specimen Blood Performing Organization Address [facility] Phone Number [facility] [address] [place] [phone] [facility] * US doppler (01/18/2019 7:45 AM CDT) Specimen Narrative Performed At FINAL REPORT [facility] HISTORY : Transaminitis COMPARISON : None. COMMENT : Complete ultrasound examination of the abdomen with color Doppler and spectral evaluation of the abdominal vasculature was performed. The visualized pancreas appears unremarkable. The liver liver is normal in size measuring approximately 15.8 cm in length. The hepatic parenchyma appears mildly increased in echogenicity. No focal hepatic abnormalities are identified. The gallbladder is unremarkable. There is no evidence for cholelithiasis, gallbladder wall thickening, or pericholecystic fluid. There is no intra or extrahepatic biliary ductal dilatation. The common bile duct measures 3 mm. Sonographic Vazquez's sign is negative. The spleen measures 10.1 cm in length and demonstrates an unremarkable sonographic appearance. The right kidney is normal in size measuring 11.6 x 4.8 x 5.4 cm with cortical thickness of 1.2 cm. The left kidney is normal in size measuring 11.8 x 6.1 x 5.3 cm with cortical thickness of 1.3 cm. Cortical echogenicity is within normal limits. There is no evidence for solid renal mass, hydronephrosis, or shadowing calculi. The urinary bladder is collapsed around a Sands catheter. There is a trace amount perihepatic ascites present. Small pleural effusions are noted bilaterally. Vascular: The main portal vein is patent with antegrade flow and diameter of 1.2 cm, within normal limits. Peak systolic velocity is 36.97 m/s. Right and left portal veins are patent with antegrade flow. The proper hepatic artery is patent with resistive index of 0.6. The right left hepatic arteries are patent with resistive index of 0.6 bilaterally. The IVC is patent and unremarkable. The middle, right, and left hepatic veins are patent. The splenic artery and vein are patent. There is aneurysmal dilatation of the mid abdominal aorta measuring up to 4.4 cm in maximal AP diameter. The proximal and distal abdominal aorta is normal in caliber. The main renal artery and veins are patent bilaterally. Impression: 1. Mildly increased hepatic echogenicity which can be seen in the setting of mild hepatic steatosis. 2. Trace perihepatic ascites and small bilateral pleural effusions. 3. 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 Follow-up examination is recommended every 12 months. Additionally, vascular surgery consultation is recommended. 4. Otherwise, unremarkable Doppler evaluation with patent portal venous system. Signed: Roland Morales MD Report Verified Date/Time:01/18/2019 10:18:51 Reading Location: [address] Ultrasound Reading Room Procedure Note Interface, External Ris In - 01/18/2019 10:21 AM CDT FINAL REPORT HISTORY : Transaminitis COMPARISON : None. COMMENT : Complete ultrasound examination of the abdomen with color Doppler and spectral evaluation of the abdominal vasculature was performed. The visualized pancreas appears unremarkable. The liver liver is normal in size measuring approximately 15.8 cm in length. The hepatic parenchyma appears mildly increased in echogenicity. No focal hepatic abnormalities are identified. The gallbladder is unremarkable. There is no evidence for cholelithiasis, gallbladder wall thickening, or pericholecystic fluid. There is no intra or extrahepatic biliary ductal dilatation. The common bile duct measures 3 mm. Sonographic Vazquez's sign is negative. The spleen measures 10.1 cm in length and demonstrates an unremarkable sonographic appearance. The right kidney is normal in size measuring 11.6 x 4.8 x 5.4 cm with cortical thickness of 1.2 cm. The left kidney is normal in size measuring 11.8 x 6.1 x 5.3 cm with cortical thickness of 1.3 cm. Cortical echogenicity is within normal limits. There is no evidence for solid renal mass, hydronephrosis, or shadowing calculi. The urinary bladder is collapsed around a Sands catheter. There is a trace amount perihepatic ascites present. Small pleural effusions are noted bilaterally. Vascular: The main portal vein is patent with antegrade flow and diameter of 1.2 cm, within normal limits. Peak systolic velocity is 36.97 m/s. Right and left portal veins are patent with antegrade flow. The proper hepatic artery is patent with resistive index of 0.6. The right left hepatic arteries are patent with resistive index of 0.6 bilaterally. The IVC is patent and unremarkable. The middle, right, and left hepatic veins are patent. The splenic artery and vein are patent. There is aneurysmal dilatation of the mid abdominal aorta measuring up to 4.4 cm in maximal AP diameter. The proximal and distal abdominal aorta is normal in caliber. The main renal artery and veins are patent bilaterally. Impression: 1. Mildly increased hepatic echogenicity which can be seen in the setting of mild hepatic steatosis. 2. Trace perihepatic ascites and small bilateral pleural effusions. 3. 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 Follow-up examination is recommended every 12 months. Additionally, vascular surgery consultation is recommended. 4. Otherwise, unremarkable Doppler evaluation with patent portal venous system. Signed: Roland Morales MD Report Verified Date/Time: 01/18/2019 10:18:51 Reading Location: [address] Ultrasound Reading Room Performing Organization Address City/State/Zipcode Phone Number [facility] * US abdomen complete (01/18/2019 7:45 AM CDT) Specimen Narrative Performed At FINAL REPORT [facility] HISTORY : Transaminitis COMPARISON : None. COMMENT : Complete ultrasound examination of the abdomen with color Doppler and spectral evaluation of the abdominal vasculature was performed. The visualized pancreas appears unremarkable. The liver liver is normal in size measuring approximately 15.8 cm in length. The hepatic parenchyma appears mildly increased in echogenicity. No focal hepatic abnormalities are identified. The gallbladder is unremarkable. There is no evidence for cholelithiasis, gallbladder wall thickening, or pericholecystic fluid. There is no intra or extrahepatic biliary ductal dilatation. The common bile duct measures 3 mm. Sonographic Vazquez's sign is negative. The spleen measures 10.1 cm in length and demonstrates an unremarkable sonographic appearance. The right kidney is normal in size measuring 11.6 x 4.8 x 5.4 cm with cortical thickness of 1.2 cm. The left kidney is normal in size measuring 11.8 x 6.1 x 5.3 cm with cortical thickness of 1.3 cm. Cortical echogenicity is within normal limits. There is no evidence for solid renal mass, hydronephrosis, or shadowing calculi. The urinary bladder is collapsed around a Sands catheter. There is a trace amount perihepatic ascites present. Small pleural effusions are noted bilaterally. Vascular: The main portal vein is patent with antegrade flow and diameter of 1.2 cm, within normal limits. Peak systolic velocity is 36.97 m/s. Right and left portal veins are patent with antegrade flow. The proper hepatic artery is patent with resistive index of 0.6. The right left hepatic arteries are patent with resistive index of 0.6 bilaterally. The IVC is patent and unremarkable. The middle, right, and left hepatic veins are patent. The splenic artery and vein are patent. There is aneurysmal dilatation of the mid abdominal aorta measuring up to 4.4 cm in maximal AP diameter. The proximal and distal abdominal aorta is normal in caliber. The main renal artery and veins are patent bilaterally. Impression: 1. Mildly increased hepatic echogenicity which can be seen in the setting of mild hepatic steatosis. 2. Trace perihepatic ascites and small bilateral pleural effusions. 3. 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 Follow-up examination is recommended every 12 months. Additionally, vascular surgery consultation is recommended. 4. Otherwise, unremarkable Doppler evaluation with patent portal venous system. Signed: Roland Morales MD Report Verified Date/Time:01/18/2019 10:18:51 Reading Location: [facility] [id number] Ultrasound Reading Room Procedure Note Interface, External Ris In - 01/18/2019 10:21 AM CDT FINAL REPORT HISTORY : Transaminitis COMPARISON : None. COMMENT : Complete ultrasound examination of the abdomen with color Doppler and spectral evaluation of the abdominal vasculature was performed. The visualized pancreas appears unremarkable. The liver liver is normal in size measuring approximately 15.8 cm in length. The hepatic parenchyma appears mildly increased in echogenicity. No focal hepatic abnormalities are identified. The gallbladder is unremarkable. There is no evidence for cholelithiasis, gallbladder wall thickening, or pericholecystic fluid. There is no intra or extrahepatic biliary ductal dilatation. The common bile duct measures 3 mm. Sonographic Vazquez's sign is negative. The spleen measures 10.1 cm in length and demonstrates an unremarkable sonographic appearance. The right kidney is normal in size measuring 11.6 x 4.8 x 5.4 cm with cortical thickness of 1.2 cm. The left kidney is normal in size measuring 11.8 x 6.1 x 5.3 cm with cortical thickness of 1.3 cm. Cortical echogenicity is within normal limits. There is no evidence for solid renal mass, hydronephrosis, or shadowing calculi. The urinary bladder is collapsed around a Sands catheter. There is a trace amount perihepatic ascites present. Small pleural effusions are noted bilaterally. Vascular: The main portal vein is patent with antegrade flow and diameter of 1.2 cm, within normal limits. Peak systolic velocity is 36.97 m/s. Right and left portal veins are patent with antegrade flow. The proper hepatic artery is patent with resistive index of 0.6. The right left hepatic arteries are patent with resistive index of 0.6 bilaterally. The IVC is patent and unremarkable. The middle, right, and left hepatic veins are patent. The splenic artery and vein are patent. There is aneurysmal dilatation of the mid abdominal aorta measuring up to 4.4 cm in maximal AP diameter. The proximal and distal abdominal aorta is normal in caliber. The main renal artery and veins are patent bilaterally. Impression: 1. Mildly increased hepatic echogenicity which can be seen in the setting of mild hepatic steatosis. 2. Trace perihepatic ascites and small bilateral pleural effusions. 3. 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 Follow-up examination is recommended every 12 months. Additionally, vascular surgery consultation is recommended. 4. Otherwise, unremarkable Doppler evaluation with patent portal venous system. Signed: Roland Morales MD Report Verified Date/Time: 01/18/2019 10:18:51 Reading Location: [facility] [id number] Ultrasound Reading Room Performing Organization Address City/State/Zipcode Phone Number [facility] * ECHOCARDIOGRAM REPORT - SCAN (01/17/2019 9:24 PM CDT) Narrative Performed At * ICD Check (01/17/2019 3:30 PM CDT) Narrative Performed At Akua Singh RN 01/17/20193:30 PM Performed ICD interrogation per order.Preliminary report placed under cardiac studies in chart. 1. Normal device function AKUA SINGH RN 01/17/2019 3:30 PM [id number] * Basic Metabolic Panel (01/17/2019 1:54 PM CDT) Only the most recent of 2 results within the time period is included. Sodium 143 136 - 145 meq/L [facility] Potassium 3.8Comment: Specimen slightly 3.5 - 5.1 meq/L [facility] [place] [place] Chloride 109 (H) 98 - 107 meq/L [facility] CO2 25 22 - 29 meq/L [facility] BUN 32 (H) 7 - 21 mg/dL [facility] Creatinine 1.22Comment: Specimen slightly 0.57 - 1.25 mg/dL [facility] [place] [place] Glucose 131 (H) 70 - 105 mg/dL [facility] Calcium 8.8 8.4 - 10.2 mg/dL [facility] EGFR 59Comment: ESTIMATED GFR IS mL/min/1.73 sq m NOT ACCURATE CREATININE [facility] CLEARANCE IN PREDICTING GLOMERULAR FILTRATION RATE. ESTIMATED GFR IS NOT APPLICABLE FOR DIALYSIS PATIENTS. Specimen Blood Narrative Performed At Specimen slightly icteric [facility] Performing Organization Address City/[facility]/Zipcode Phone Number [facility] [address] * Troponin I (01/17/2019 12:33 PM CDT) Only the most recent of 3 results within the time period is included. Troponin I 0.09 (H) 0.00 - 0.03 ng/mL [facility] Specimen Blood Narrative Performed At Troponin I (TnI) levels must be interpreted in the context of the presenting symptoms and the clinical findings. Elevated TnI levels indicate myocardial [facility] damage, but are not specific for ischemic heart disease. Elevated TnI levels are seen in patients with other cardiac conditions (including myocarditis and congestive heart failure), and slight TnI elevations occur in patients with other conditions, including sepsis, renal failure, acidosis, acute neurological disease, and persistent tachyarrhythmia. Performing Organization Address [facility] Services[facility] Phone Number [address] * MRSA screen (01/17/2019 10:29 AM CDT) Result No MRSA isolated [facility] Specimen Nasal Performing Organization Address [facility]/Zipcode Phone Number [address] * Procalcitonin (01/17/2019 10:12 AM CDT) Procalcitonin 0.58 (H) <0.05 ng/mL [facility] Specimen Blood Narrative Performed At SEPSIS RISK (ng/mL) Low:0.05-0.50 [facility] Intermediate: 0.51-2.00 High: >=2.01 Performing Organization Address [facility] Services[facility] Phone Number [address] * Acetaminophen level (01/17/2019 10:12 AM CDT) Only the most recent of 2 results within the time period is included. Acetaminophen Level <5.7 (L)Comment: Specimen 10.0 - 30.0 ug/mL moderately hemolyzed [facility] Specimen Blood Narrative Performed At Therapeutic Range: 10.0-30.0 g/mL Toxic Levels:>200.0 g/mL [facility] Performing Organization Address City/State/Zipcode Phone Number [facility] [address] [place] [address] MEDICAL CENTER * 2D Echo W/Doppler(CW/PW/Color) (01/17/2019 1:59 AM CDT) Ejection Fraction [facility] ECHO [facility]ART[facility] Specimen Narrative Performed At Transthoracic Echocardiography Report (TTE) [facility]ART[facility] Demographics [facility] Patient NameANUJ HERNANDEZ Date of Study01/17/2019 Male Visit [id number] Unknown Room [id number] Number Date of 1950ReferrSybil Vazquez Physician Age 68 year(s)SonographerSdevonte Frias RDCS, RVT Interpreting Vicki Ponce MD Physician FellowHeather MD Rob Procedure Type of Study TTE procedure:2DECHO W DOPPLER(CW/PW/COLOR) (STAT) Indications:Respiratory failure or hypoxemia . Clinical History ACUTE LIVER FAILURE HGB 10.7 HCT 36 % Height: 58 inches Weight: 70.76 kg (156 lbs) BSA: 1.64 m^2 BMI: 32.6 kg/m^2 HR: 87 bpm BP: 102/80 mmHg Summary 1. The left ventricle is chamber size (by vol index) is severely enlarged (male - LVED vol >100ml/m2). LVEF by Lynch's method of disk assessment is moderately reduced (30-34%) . 2. RV chamber size is mildly enlarged . Global RV systolic function is depressed . S' 4 cm/sec. 3. LA size is severely enlarged (>48 ml/m2) . RA cavity size is moderately enlarged . 4. Moderate to severe MR. 5. Moderate to severe TR noted. Peak systolic pressure may be underestimated due to TR severity. Estimated peak systolic pressure is > 55 mmHg assuming RAP > 20 mm Hg.. Previous Study No prior exam available for comparison. Signature Findings Rhythm/BPPaced rhythm during the exam. Left Ventricle The LV endocardium is adequately visualized. The left ventricle is chamber size (by vol index) is severely enlarged (male - LVED vol >100ml/m2). Normal LV wall thickness. The following segment(s) appear akinetic: basal to mid inferior wall . The following segments appear severely hypokinetic: basal to mid inferoseptal garrido. All of the rest of the LV segments are moderately hypokinetic . LVEF by Lynch's method of disk assessment is moderately reduced (30-34%) . Diastolic function is indeterminate due to presence of significant MR. Left AtriumLA size is severely enlarged (>48 ml/m2) . Right VentricleRV pacing wire is visualized . RV chamber size is mildly enlarged . Global RV systolic function is depressed . S' 4 cm/sec. Right Atrium RA cavity size is moderately enlarged . A pacemaker wire is visualized in the right atrium. Aortic Valve Mild AoV cusp thickening. Mild AoV cusp calcification. No evidence of aortic stenosis. No evidence of aortic regurgitation. Mitral Valve Moderate MV leaflet thickening and calcification noted. Mild mitral annular calcification. There is eccentric mitral regurgitation noted. Estimation of severity is less reliable in setting of an eccentric jet. Suggestion of moderate to severe MR. Based on MV annulus diameter of 3.4 cm, the regurgitant volume is > 100 cc and regurgitant fraction is >60%. Tricuspid ValveThickening of the tricuspid leaflets noted. There is annular dilation and malcoaptation of leaflets noted. Moderate to severe TR noted. Peak systolic pressure may be underestimated due to TR severity. Estimated peak systolic pressure is > 55 mmHg assuming RAP > 20 mm Hg.. Pulmonic Valve Normal PV structure. Mild pulmonary regurgitation. AortaAortic root size (SInus of Valsalva diameter) is mild to moderately enlarged. 4.1 cm. PericardiumNo significant pericardial effusion is visualized. IVC/SVC/PA/PV/PleuralIVC is dilated. Systolic flow reversal noted in the hepatic veins. Estimated RAP is > 20 mm Hg. Chambers/Structures Left Atrium LA Volume: 128.8 ml LA Area: 33.26 cm^2 LA Vol. Index: 79 ml/m^2 Left Ventricle LVIDd: 6.91 cmLVEDV:248. 18 ml LV Septum Diastolic: 0.81 cm LV PW Diastolic: 0.97 cm LVEDV Lynch's:275 ml LVESV Lynch's:181 ml LVEF Lynch's: 34 %LVEDVI: 168 ml/m^2 LVESVI: 110 ml/m^2 LVOT Diameter: 2.2 cm Right Ventricle RV Diast Dim.: 4.8 cm RV Systolic Pressure: 56 mmHg Aorta Ao Root S of Jessi.: 4.1 cm Doppler/Quantitative Measurements Aortic Valve Peak Velocity: 1.09 m/s Mean Velocity: 0.82 m/s Peak Gradient: 4.78 mmHgMean Gradient: 3 mmHg AV Area (continuity): 2.85 cm^2 AV VTI: 15.77 cm AV DVI: 0.75 LVOT Peak Velocity: 1.04 m/s Peak Gradient: 4.31 mmHg Mean Velocity: 0.6 m/sMean Gradient: 1.83 mmHg LVOT Diameter: 2.2 cm LVOT VTI: 11.81 cm LVOT Area: 3.8 cm^2 LVOT SV:44.87 ml LVOT CO: 3.9 l/minLVOT CI: 2.38 l/min/m^2 Tricuspid Valve Estimated RAP: 20 mmHg TR Velocity: 3 m/s TR Gradient: 36 mmHg Pulmonic Valve Estimated PASP: 56 mmHg Procedure Note Interface, External Ris In - 01/17/2019 8:08 AM CDT Transthoracic Echocardiography Report (TTE) Demographics Patient Name ANUJ HERNANDEZ Date of Study 01/17/2019 Gender Male Visit Number [id number] Race Unknown Room Number 6101 Number Date of 1950 Referring Cali Vazquez Physician Age 68 year(s) Group Program Manager Erin Frias [facility], RVT Interpreting Vicki Ponce MD Physician Fellow Brenda Rivas MD Procedure Type of Study TTE procedure:2DECHO W DOPPLER(CW/PW/COLOR) (STAT) Indications:Respiratory failure or hypoxemia . Clinical History ACUTE LIVER FAILURE HGB 10.7 HCT 36 % Height: 58 inches Weight: 70.76 kg (156 lbs) BSA: 1.64 m^2 BMI: 32.6 kg/m^2 HR: 87 bpm BP: 102/80 mmHg Summary 1. The left ventricle is chamber size (by vol index) is severely enlarged (male - LVED vol >100ml/m2). LVEF by Lynch's method of disk assessment is moderately reduced (30-34%) . 2. RV chamber size is mildly enlarged . Global RV systolic function is depressed . S' 4 cm/sec. 3. LA size is severely enlarged (>48 ml/m2) . RA cavity size is moderately enlarged . 4. Moderate to severe MR. 5. Moderate to severe TR noted. Peak systolic pressure may be underestimated due to TR severity. Estimated peak systolic pressure is > 55 mmHg assuming RAP > 20 mm Hg.. Previous Study No prior exam available for comparison. Signature Findings Rhythm/BP Paced rhythm during the exam. Left Ventricle The LV endocardium is adequately visualized. The left ventricle is chamber size (by vol index) is severely enlarged (male - LVED vol >100ml/m2). Normal LV wall thickness. The following segment(s) appear akinetic: basal to mid inferior wall . The following segments appear severely hypokinetic: basal to mid inferoseptal garrido. All of the rest of the LV segments are moderately hypokinetic . LVEF by Lynch's method of disk assessment is moderately reduced (30-34%) . Diastolic function is indeterminate due to presence of significant MR. Left Atrium LA size is severely enlarged (>48 ml/m2) . Right Ventricle RV pacing wire is visualized . RV chamber size is mildly enlarged . Global RV systolic function is depressed . S' 4 cm/sec. Right Atrium RA cavity size is moderately enlarged . A pacemaker wire is visualized in the right atrium. Aortic Valve Mild AoV cusp thickening. Mild AoV cusp calcification. No evidence of aortic stenosis. No evidence of aortic regurgitation. Mitral Valve Moderate MV leaflet thickening and calcification noted. Mild mitral annular calcification. There is eccentric mitral regurgitation noted. Estimation of severity is less reliable in setting of an eccentric jet. Suggestion of moderate to severe MR. Based on MV annulus diameter of 3.4 cm, the regurgitant volume is > 100 cc and regurgitant fraction is >60%. Tricuspid Valve Thickening of the tricuspid leaflets noted. There is annular dilation and malcoaptation of leaflets noted. Moderate to severe TR noted. Peak systolic pressure may be underestimated due to TR severity. Estimated peak systolic pressure is > 55 mmHg assuming RAP > 20 mm Hg.. Pulmonic Valve Normal PV structure. Mild pulmonary regurgitation. Aorta Aortic root size (SInus of Valsalva diameter) is mild to moderately enlarged. 4.1 cm. Pericardium No significant pericardial effusion is visualized. IVC/SVC/PA/PV/Pleural IVC is dilated. Systolic flow reversal noted in the hepatic veins. Estimated RAP is > 20 mm Hg. Chambers/Structures Left Atrium LA Volume: 128.8 ml LA Area: 33.26 cm^2 LA Vol. Index: 79 ml/m^2 Left Ventricle LVIDd: 6.91 cm LVEDV:248.18 ml LV Septum Diastolic: 0.81 cm LV PW Diastolic: 0.97 cm LVEDV Lynch's:275 ml LVESV Lynch's:181 ml LVEF Lynch's: 34 % LVEDVI: 168 ml/m^2 LVESVI: 110 ml/m^2 LVOT Diameter: 2.2 cm Right Ventricle RV Diast Dim.: 4.8 cm RV Systolic Pressure: 56 mmHg Aorta Ao Root S of Jessi.: 4.1 cm Doppler/Quantitative Measurements Aortic Valve Peak Velocity: 1.09 m/s Mean Velocity: 0.82 m/s Peak Gradient: 4.78 mmHg Mean Gradient: 3 mmHg AV Area (continuity): 2.85 cm^2 AV VTI: 15.77 cm AV DVI: 0.75 LVOT Peak Velocity: 1.04 m/s Peak Gradient: 4.31 mmHg Mean Velocity: 0.6 m/s Mean Gradient: 1.83 mmHg LVOT Diameter: 2.2 cm LVOT VTI: 11.81 cm LVOT Area: 3.8 cm^2 LVOT SV:44.87 ml LVOT CO: 3.9 l/min LVOT CI: 2.38 l/min/m^2 Tricuspid Valve Estimated RAP: 20 mmHg TR Velocity: 3 m/s TR Gradient: 36 mmHg Pulmonic Valve Estimated PASP: 56 mmHg Performing Organization Address [facility] Phone Number [facility] ECHO [facility]ART[facility] CPACS * ABORH, manual (01/17/2019 1:01 AM CDT) ABO Grouping A [facility] Rh Factor POS [facility] Specimen Blood Performing Organization Address [facility] Services[facility] Phone Number [address] * Urea Nitrogen, random urine (01/17/2019 12:14 AM CDT) Urea Nitrogen, Ur 408 mg/dL [facility] Specimen Urine Narrative Performed At Reference Range: No Normals [facility] Performing Organization Address [facility] Phone Number [place] [phone] * Rapid drug screen (01/17/2019 12:14 AM CDT) Barbiturate Screen Negative Negative [facility] Benzodiazepine Screen Negative Negative [facility] Cocaine (Metab.) Screen Negative Negative [facility] Methadone Screen Negative Negative [facility] Opiate Screen Negative Negative [facility] Cannabinoid Screen Negative Negative [facility] Amph/Methamph Screen Negative Negative [facility] Phencyclidine Screen Negative Negative [facility] Oxycodone Screen Negative Negative [facility] Specimen Urine Narrative Performed At [facility] Cocaine 300 ng/mL [facility] Lohkgvvhrmb20 ng/mL Veltwuljdjcudt051 ng/mL Barbiturate 200 ng/mL Xabndhhirwact98 ng/mL Kckpql915 ng/mL Methadone 300 ng/mL Amphetamine/ 1000 ng/mL Methamphetamine Oxycodone 300 ng/mL This assay provides an unconfirmed qualitative test result for the clinical management of patients in emergency situations. Chain of custody not maintained. Some wohs-hsr-swcylle medications, as well as adulterants, may cause inaccurate results. Clinical correlation should be applied. A more comprehensive drug screen or confirmation of a detected drug may be performed upon request. Performing Organization Address [facility] Services[facility] Phone Number [address] * Sodium, random urine (01/17/2019 12:14 AM CDT) Sodium Urine 63 meq/L [facility] Specimen Urine Narrative Performed At Reference Range: No Normals [facility] Performing Organization Address [facility] Phone Number [address] * Creatinine, random urine (01/17/2019 12:14 AM CDT) Creatinine, Ur 25.1 mg/dL [facility] Specimen Urine Narrative Performed At Reference Range: No Normals [facility] Performing Organization Address [facility] Services[facility] Phone Number [address] * T Spot TB (01/17/2019 12:07 AM CDT) T-Spot TB Negative [facility] Neg Ctrl Spot Count 0 [facility] Panel A Spot 0 [facility] Panel B Spot 0 [facility] Pos Ctrl Spot Ct 0 [facility] Scan Result [facility] Specimen Blood Narrative Performed At Performing Organization Address City/State/Zipcode Phone Number [facility] [address] [place] [address] LABORATORIES 100 * Blood Culture - Routine (Left Venipuncture) (01/17/2019 12:06 AM CDT) Only the most recent of 2 results within the time period is included. Result No growth in 5 days [facility] Specimen Blood Performing Organization Address City/[facility]/Zipcode Phone Number [address] * Type and screen, automated (01/17/2019 12:01 AM CDT) ABO/RH AUTOMATED (BEAKER) A POSITIVE [facility] Ab Scrn NEGATIVE [facility] Specimen Blood Performing Organization Address [facility] Services[facility] Phone Number [address] * Mitochondria M2 Antibody (IgG) (01/17/2019 12:01 AM CDT) Mitochondria M2 Ab <20.0 See Note: U [facility] Comment: [facility] Reference Range: NEGATIVE:< OR=20.0 EQUIVOCAL: 20.1-24.9 POSITIVE:> OR=25.0 Specimen Blood Narrative Performed At Performing Lab [facility] [employer] [address] [place] [address] Krystal Douglas MD, PhD, KALEIGH Performing Organization Address City/[facility] Services[facility] Phone Number [facility] [employer], [address] [facility] [address] * HIV-1 Antigen with HIV-1/2 Antibody (01/17/2019 12:01 AM CDT) HIV-1 Antigen with HIV NON-REACTIVE Nonreactive 1&2 Antibody [facility] Specimen Blood Performing Organization Address [facility]/Zipcode Phone Number [address] [place], [place] [id number] [facility] * Cytomegalovirus antibody, IgM (01/17/2019 12:01 AM CDT) CMV IGM Negative Negative, Equivocal [facility] Specimen Blood Narrative Performed At CMV IgM Result Interpretation: </=0.8 Al Negative [facility] 0.9-1.0 Al Equivocal >/=1.1 Al Positive Performing Organization Address City/[facility] Services[facility] Phone Number [facility] [address] [place] [address] [facility] * Actin (Smooth Muscle) Antibody, IgG (01/17/2019 12:01 AM CDT) Anti-Smooth Muscle Ab <20 See Note: U [facility] Comment: INC[facility]PORATED Reference Range: <20 NEGATIVE > OR=20 POSITIVE Antibodies recognizing actin are the main component of smooth muscle antibodies associated with autoimmune liver disease. Actin antibodies are found in approximately 75% of patients with autoimmune hepatitis (AIH) type 1, approximately 65% of patients with autoimmune cholangitis, approximately 30% of patients with primary biliary cirrhosis, and approximately 2% of healthy people. High values are closely correlated with AIH type 1. Specimen Blood Narrative Performed At Performing Lab [facility] [address] [place] [address] Krystal Douglas MD, PhD, KALEIGH Performing Organization Address [facility] Services[facility]oco Phone Number [facility] [employer] [place], [address] [place], [place] [facility] [address] * Zrtrr-0-fawhfnsagve (01/17/2019 12:01 AM CDT) A-1 Antitrypsin 177.90 90.00 - 200.00 mg/dL [facility] Specimen Blood Performing Organization Address City/[facility]/Zipcode Phone Number [facility] [address] [place] [address] [facility] * Ceruloplasmin (01/17/2019 12:01 AM CDT) Ceruloplasmin 41 (H) 18 - 36 mg/dL [facility] Comment: INCORPORATED Adults:Males: 18-36 mg/dL Fe males: 18-53 mg/dL Pediatrics: Males (mg/dL)Females (mg/dL) ------ 0-30 Days 8-25 3-28 31 Days-11 Month 15-481 5-43 1-3 Years2 554 4-6 Years2 -54 7-9 Years2 5 -48 10-12 Yymwz74-98 21-48 13-15 Wiqic68-18 21-46 16-18 Qcylt88-82 22-50 The pediatric ranges are derived from the following criteria: Kiki LAGOS, Roxie ULLOA, Nazia J et al Pediatric reference ranges for Wswq-1-Lrqadipkxnknd and ceruloplasmin. Clin. Chem 1997; 43:S1999 Pediatric Reference Ranges, 2nd., [place] Kikiet al. editors. [employer], [place], [place] 1997. Specimen Blood Narrative Performed At Performing Lab [facility] *[facility] Mahajan JensenGrand [facility], [address] [place] [address] Stacie Henderson MD, PhD Performing Organization Address City/State/Zipcode Phone Number [facility] [address] [place], [address] [place], [place] [facility] [place] [address] * Hepatitis panel, acute (01/17/2019 12:01 AM CDT) Hep A IgM HEPATITIS A TEST NEGATIVE Nonreactive [facility] Hep B C IgM NON-REACTIVE Nonreactive [facility] Hepatitis C Ab NON-REACTIVE Nonreactive [facility] hepatitis B Surface Ag NON-REACTIVE Nonreactive [facility] Specimen Blood Performing Organization Address City/State/Zipcode Phone Number [facility] [address] [place] [address] [facility] * EBV-VCA antibody, IgM (01/17/2019 12:01 AM CDT) ASHVIN RUSH VIRAL CAPSID Negative Negative, Equivocal ANTIGEN IGM [facility] Specimen Blood Narrative Performed At Ashvin Rush Viral Capsid Antigen IgM Result Interpretation: </=0.8 Al Negative [facility] 0.9-1.0 Al Equivocal >/=1.1 Al Positive Performing Organization Address City/[facility] Services[facility] Phone Number [address] * EBV-VCA antibody, IgG (01/17/2019 12:01 AM CDT) ASHVIN RUSH VIRAL CAPSID Positive (A) Negative, Equivocal ANTIGEN IGG [facility] Specimen Blood Narrative Performed At [facility] Viral Capsid Antigen IgG Result Interpretation: </=0.8 Al Negative [facility] 0.9-1.0 Al Equivocal >/=1.1 Al Positive Performing Organization Address [facility] Phone Number [address] * Hepatitis B core antibody, total (01/17/2019 12:01 AM CDT) Hep B Core Total Ab NON-REACTIVE Nonreactive [facility] Specimen Blood Performing Organization Address City/[facility] Phone Number [address] * RPR (01/17/2019 12:01 AM CDT) RPR Nonreactive Nonreactive [facility] Specimen Blood Performing Organization Address City/[facility] Phone Number [address] * Hepatitis B surface antibody (01/17/2019 12:01 AM CDT) Hep B S Ab <8.0 <8.0 mIU/mL [facility] Specimen Blood Performing Organization Address City/[facility] Services[facility] Phone Number [address] * Cytomegalovirus antibody, IgG (01/17/2019 12:01 AM CDT) CYTOMEGALOVIRUS, IGG Positive (A) Negative, Equivocal [facility] Specimen Blood Narrative Performed At CMV IgG Result Interpretation: </=0.8 Al Negative [facility] 0.9-1.0 Al Equivocal >/=1.1 AlPositive Performing Organization Address [facility] Phone Number [address] * Fibrinogen (01/17/2019 12:01 AM CDT) Fibrinogen 232 225 - 434 mg/dl [facility] Specimen Blood Performing Organization Address [facility] Phone Number [address] * Anti-Nuclear Antibody (GELY) (01/17/2019 12:01 AM CDT) GELY Negative Negative [facility] Specimen Blood Narrative Performed At Test performed by IFA method. Test performed by IFA method. [facility] Performing Organization Address [facility] Phone Number [address] * Ethanol (01/17/2019 12:01 AM CDT) Ethanol Lvl <10 <=10 mg/dL [facility] Specimen Blood Performing Organization Address [facility] Phone Number [address] * Urinalysis w/Microscopic + Reflex to Culture (01/16/2019 11:18 PM CDT) Color, UA Light Yellow [facility] Clarity, UA Clear [facility] Specific [place], UA 1.012 1.001 - 1.035 [facility] pH, UA 6.5 5.0 - 8.0 [facility] Protein, UA Negative Negative [facility] Glucose, UA Negative Negative [facility] Ketones, UA Negative Negative [facility] Bilirubin, UA Negative Negative [facility] Blood, UA Negative Negative [facility] Nitrite, UA Negative Negative [facility] Leukocytes, UA Negative Negative [facility] Urobilinogen, UA 0.2 0.2 - 1.0 mg/dL [facility] RBC, UA 4 /HPF [facility] WBC, UA <1 /HPF [facility] Bacteria, UA Rare [facility] Specimen Source [facility] Specimen Urine Performing Organization Address City/[facility] Phone Number [address] [address] [facility] * PT/aPTT (01/16/2019 11:15 PM CDT) Protime 31.3 (H) 11.7 - 14.7 seconds [facility] INR 3.0 <=5.9 [facility] PTT 37.5 (H) 22.5 - 36.0 seconds [facility] Specimen Blood Narrative Performed At RECOMMENDED COUMADIN/WARFARIN INR THERAPY RANGES STANDARD DOSE: 2.0 - 3.0 Includes: PROPHYLAXIS for venous thrombosis, [facility] systemic embolization; TREATMENT for venous thrombosis and/or pulmonary embolus. HIGH RISK: Target INR is 2.5-3.5 for patients with mechanical heart valves. Performing Organization Address City/[facility] Servicescode Phone Number [phone] [place] [address] [facility] * Blood gas, arterial (01/16/2019 11:15 PM CDT) pH, Arterial 7.53 (H) 7.35 - 7.45 [facility] pCO2, Arterial 26 (L) 35 - 45 mmHg [facility] pO2, Arterial 569 (H) 80 - 90 mmHg [facility] O2 Sat, Arterial 99.9 (H) 96.0 - 97.0 % [facility] HCO3, Arterial 21 21 - 29 mmol/L [facility] Base Excess, Arterial -0.6 -2.0 - 3.0 mmol/L [facility] Patient Temperature 37.5 C [facility] FIO2 100.0 % [facility] Specimen Blood, Arterial Performing Organization Address City/State/Zipcode Phone Number [facility] [address] [place], [place] [id number] [facility] after 02/01/2018 Insurance Payer Benefit Subscriber ID Type Phone Address Plan / Group [facility] xxxxxxxxx MEDICARE MGD CARE MEDICARE HMO Advance Directives For more information, please contact: [address] [phone] Date Inactivated Comments Code Status Date Activated 02/01/2019 8:58 PM Full Code 01/17/2019 4:38 PM This code status was determined by: Other (please list) brother 01/17/2019 4:38 PM Partial Code 01/17/2019 2:32 AM This code status was determined by: Patient Drug Protocol After Arrest Occurs? Yes Mechanical Ventilation with Intubation? No Bag/Mask? Yes Internal/External Pacemaker? Yes Transfer to Critical Care? Yes Chest Compressions? No Defibrillation/Cardioversion? Yes 01/17/2019 2:32 AM Full Code 01/16/2019 11:41 PM This code status was determined by: Patient
--- OUTSIDE RECORDS SUMMARY | 2019-02-02 09:11 | XMS REPORT ---
[facility] Address Unknown Phone Unavailable Care Team Providers Care Thread Laster Name Role Phone Walt ZAZUETA Unavailable Unavailable Problems This patient has no known problems. Allergies, Adverse Reactions, Alerts This patient has no known allergies or adverse reactions. Medications This patient has no known medications. Encounters Start Date/Time End Date/Time Encounter Type Admission Type Attending Clinicians Care Facility Care Department Encounter ID 2019-01-16 13:35:00 2019-01-16 13:35:00 Emergency E [facility] [id number] 2019-01-06 09:50:00 2019-01-06 09:50:00 Outpatient [facility] [id number] Results Test Description Test Time Test Comments Text Results Atomic Results Result Comments POCT-GLUCOSE METER 2019-02-01 18:06:00 POC-GLUCOSE METER (BEAKER) (test ivrz=3001) 128 mg/dL 70-110 TESTED AT [address] [address] RAD, CHEST, 1 VIEW, NON [id number] 10:34:00Reason for exam:->pulm edemaShould this be performed at the bedside?->YesFINAL REPORT Portable chest, 02/01/2019 COMPARISON: 01/31/2019 There [...] the midsuperior vena cava. Signed: Ines Flores MDReport Verified Date/Time: 02/01/2019 10:34:00 Reading Location: [facility] Reading Room Electronically signed by: INES FLORES M.D. on 2018 10:34 AM POCT-GLUCOSE [id number] 07:54:00* Test Item Value Reference Range Comments POC-GLUCOSE METER (BEAKER) (test nidy=5562) 80 mg/dL 70-110 TESTED AT [facility] [address] [facility] [address] [id number] 05:26:00* Test Item Value Reference Range Comments MAGNESIUM (BEAKER) (test pwpe=634) 2.0 mg/dL 1.6-2.6 COMPREHENSIVE METABOLIC [id number] 05:26:00* Test Item Value Reference Range Comments TOTAL PROTEIN (BEAKER) (test hzwt=419) 5.8 gm/dL 6.0-8.3 ALBUMIN (BEAKER) (test inte=2288) 3.0 g/dL 3.5-5.0 ALKALINE PHOSPHATASE (BEAKER) (test uhjz=682) 66 U/L 40-150 BILIRUBIN TOTAL (BEAKER) (test qiki=059) 1.0 mg/dL 0.2-1.2 SODIUM (BEAKER) (test eadt=813) 139 meq/L 136-145 POTASSIUM (BEAKER) (test hsqj=347) 4.0 meq/L 3.5-5.1 CHLORIDE (BEAKER) (test wezf=270) 106 meq/L 98-107 CO2 (BEAKER) (test mqlf=319) 27 meq/L 22-29 BLOOD UREA NITROGEN (BEAKER) (test urrw=731) 20 mg/dL 7-21 CREATININE (BEAKER) (test vvwh=191) 1.06 mg/dL 0.57-1.25 GLUCOSE RANDOM (BEAKER) (test hema=855) 102 mg/dL 70-105 CALCIUM (BEAKER) (test sfsq=879) 8.9 mg/dL 8.4-10.2 AST (SGOT) (BEAKER) (test mssc=554) 25 U/L 5-34 ALT (SGPT) (BEAKER) (test tfpd=256) 38 U/L 6-55 EGFR (BEAKER) (test year=5368) 69 mL/min/1.73 sq m ESTIMATED GFR IS NOT ACCURATE CREATININE CLEARANCE IN PREDICTING GLOMERULAR FILTRATION RATE. ESTIMATED GFR IS NOT APPLICABLE FOR DIALYSIS PATIENTS. OXYGEN SATURATION, [id number] 05:15:00* Test Item Value Reference Range Comments O2 SATURATION (MEASURED) (BEAKER) (test ainb=6916) 57.7 % PICC lineCBC W/PLT COUNT & AUTO [id number] 05:09:00* Test Item Value Reference Range Comments WHITE BLOOD CELL COUNT (BEAKER) (test izss=711) 4.6 K/ L 3.5-10.5 RED BLOOD CELL COUNT (BEAKER) (test hjuy=783) 3.63 M/ L 4.63-6.08 HEMOGLOBIN (BEAKER) (test drqs=997) 10.8 GM/DL 13.7-17.5 HEMATOCRIT (BEAKER) (test ykbr=597) 34.7 % 40.1-51.0 MEAN CORPUSCULAR VOLUME (BEAKER) (test wqzx=761) 95.6 fL 79.0-92.2 MEAN CORPUSCULAR HEMOGLOBIN (BEAKER) (test wfdi=666) 29.8 pg 25.7-32.2 MEAN CORPUSCULAR HEMOGLOBIN CONC (BEAKER) (test ghyt=694) 31.1 GM/DL 32.3-36.5 RED CELL DISTRIBUTION WIDTH (BEAKER) (test ilfa=487) 16.8 % 11.6-14.4 PLATELET COUNT (BEAKER) (test pffr=266) 177 K/CU MM 150-450 MEAN PLATELET VOLUME (BEAKER) (test rzoc=647) 10.2 fL 9.4-12.4 NUCLEATED RED BLOOD CELLS (BEAKER) (test yxka=846) 0 /100 WBC 0-0 NEUTROPHILS RELATIVE PERCENT (BEAKER) (test xans=355) 53 % LYMPHOCYTES RELATIVE PERCENT (BEAKER) (test lsyw=792) 32 % MONOCYTES RELATIVE PERCENT (BEAKER) (test xbzr=256) 9 % EOSINOPHILS RELATIVE PERCENT (BEAKER) (test ttuq=456) 5 % BASOPHILS RELATIVE PERCENT (BEAKER) (test aiuz=482) 1 % NEUTROPHILS ABSOLUTE COUNT (BEAKER) (test fork=598) 2.43 K/ L 1.78-5.38 LYMPHOCYTES ABSOLUTE COUNT (BEAKER) (test ffxm=010) 1.47 K/ L 1.32-3.57 MONOCYTES ABSOLUTE COUNT (BEAKER) (test nixp=926) 0.39 K/ L 0.30-0.82 EOSINOPHILS ABSOLUTE COUNT (BEAKER) (test ivzw=049) 0.21 K/ L 0.04-0.54 BASOPHILS ABSOLUTE COUNT (BEAKER) (test wjrz=626) 0.06 K/ L 0.01-0.08 IMMATURE GRANULOCYTES-RELATIVE PERCENT (BEAKER) (test lvoe=0658) 0 % 0-1 POCT-GLUCOSE [id number] 00:00:00* Test Item Value Reference Range Comments POC-GLUCOSE METER (BEAKER) (test dlds=1097) 110 mg/dL 70-110 TESTED AT [place] [id number] [facility] [address] POCT-GLUCOSE [id number] 20:07:00* Test Item Value Reference Range Comments POC-GLUCOSE METER (BEAKER) (test jwzu=2610) 105 mg/dL 70-110 [address]ED AT [address] [address] POCT-GLUCOSE [id number] 12:55:00* Test Item Value Reference Range Comments POC-GLUCOSE METER (BEAKER) (test hcux=7991) 94 mg/dL 70-110 TESTED AT [address] [address] CBC W/PLT COUNT & AUTO [id number] 10:47:00* Test Item Value Reference Range Comments WHITE BLOOD CELL COUNT (BEAKER) (test fhxu=289) 5.8 K/ L 3.5-10.5 RED BLOOD CELL COUNT (BEAKER) (test xivq=324) 3.58 M/ L 4.63-6.08 HEMOGLOBIN (BEAKER) (test xgkh=786) 10.6 GM/DL 13.7-17.5 HEMATOCRIT (BEAKER) (test nlux=676) 34.6 % 40.1-51.0 MEAN CORPUSCULAR VOLUME (BEAKER) (test fjiz=003) 96.6 fL 79.0-92.2 MEAN CORPUSCULAR HEMOGLOBIN (BEAKER) (test dumd=901) 29.6 pg 25.7-32.2 MEAN CORPUSCULAR HEMOGLOBIN CONC (BEAKER) (test aqub=325) 30.6 GM/DL 32.3-36.5 RED CELL DISTRIBUTION WIDTH (BEAKER) (test ewhs=993) 17.0 % 11.6-14.4 PLATELET COUNT (BEAKER) (test mxqn=505) 178 K/CU MM 150-450 MEAN PLATELET VOLUME (BEAKER) (test yyap=797) 9.6 fL 9.4-12.4 NUCLEATED RED BLOOD CELLS (BEAKER) (test rqvk=051) 0 /100 WBC 0-0 (CELLAVISION MANUAL DIFF)2019-01-31 10:47:00* Test Item Value Reference Range Comments NEUTROPHILS - REL (CELLAVISION)(BEAKER) (test frho=9858) 69 % LYMPHOCYTES - REL (CELLAVISION)(BEAKER) (test kzex=4992) 26 % MONOCYTES - REL (CELLAVISION)(BEAKER) (test osem=4172) 2 % EOSINOPHILS - REL (CELLAVISION)(BEAKER) (test nrou=3242) 3 % NEUTROPHILS - ABS (CELLAVISION)(BEAKER) (test oxch=0152) 4.00 K/ul 1.78-5.38 LYMPHOCYTES - ABS (CELLAVISION)(BEAKER) (test wkkm=7564) 1.51 K/ul 1.32-3.57 MONOCYTES - ABS (CELLAVISION)(BEAKER) (test udzj=9727) 0.12 K/uL 0.30-0.82 EOSINOPHILS - ABS (CELLAVISION)(BEAKER) (test name=8493) 0.17 K/uL 0.04-0.54 TOTAL COUNTED (BEAKER) (test tbtg=2443) 100 WBC MORPHOLOGY (BEAKER) (test nvix=569) Normal GIANT PLATELETS (BEAKER) (test lcss=406) Present POIKILOCYTES (BEAKER) (test vbki=350) 1+ few ARTIFACT (CELLAVISION)(BEAKER) (test lbme=0796) Present PLATELET CONCENTRATION (CELLAVISION)(BEAKER) (test jnwh=7999) Adequate Received comment: User comments: Slide comments: RAD, CHEST, 1 VIEW, NON DEPT 2019-01-31 10:07:00Reason for exam:->pulm edemaShould this be performed at the bedside?->YesFINAL REPORT Portable chest. CLINICAL HISTORY: pulm edema. COMPARISON STUDY: Chest x-ray from yesterday. FINDINGS: The cardiac silhouette is enlarged. Sternotomy wires are seen. The pulmonary parenchyma demonstrates increased reticular markings with atelectatic changes in the right lung base and right gastric angle blunting, slightly more pronounced than on previous. The support lines and tubes are unchanged. No pneumothorax is seen. Degenerative changes are noted. IMPRESSION: Slight worsening of opacity in the right lung base. Signed: Harpreet Delatorre MDReport Verified Date/Time: 01/31/2019 10:07:51 Reading Location: [facility] Radiology Reading Room ESIUM 2019-01-31 05:52:00* Test Item Value Reference Range Comments MAGNESIUM (BEAKER) (test mlla=026) 2.0 mg/dL 1.6-2.6 COMPREHENSIVE METABOLIC [id number] 05:52:00* Test Item Value Reference Range Comments TOTAL PROTEIN (BEAKER) (test zqif=751) 5.8 gm/dL 6.0-8.3 ALBUMIN (BEAKER) (test flcp=1429) 3.1 g/dL 3.5-5.0 ALKALINE PHOSPHATASE (BEAKER) (test natn=537) 66 U/L 40-150 BILIRUBIN TOTAL (BEAKER) (test gupx=433) 1.1 mg/dL 0.2-1.2 SODIUM (BEAKER) (test tikl=352) 138 meq/L 136-145 POTASSIUM (BEAKER) (test qfip=178) 4.3 meq/L 3.5-5.1 CHLORIDE (BEAKER) (test rrdp=543) 106 meq/L 98-107 CO2 (BEAKER) (test cjox=775) 26 meq/L 22-29 BLOOD UREA NITROGEN (BEAKER) (test kelm=961) 18 mg/dL 7-21 CREATININE (BEAKER) (test rudg=395) 1.04 mg/dL 0.57-1.25 GLUCOSE RANDOM (BEAKER) (test ajou=260) 88 mg/dL 70-105 CALCIUM (BEAKER) (test ttnn=605) 8.9 mg/dL 8.4-10.2 AST (SGOT) (BEAKER) (test dfya=331) 22 U/L 5-34 ALT (SGPT) (BEAKER) (test vmiz=084) 41 U/L 6-55 EGFR (BEAKER) (test wtun=1575) 71 mL/min/1.73 sq m ESTIMATED GFR IS NOT ACCURATE CREATININE CLEARANCE IN PREDICTING GLOMERULAR FILTRATION RATE. ESTIMATED GFR IS NOT APPLICABLE FOR DIALYSIS PATIENTS. OXYGEN SATURATION, [id number] 05:42:00* Test Item Value Reference Range Comments O2 SATURATION (MEASURED) (BEAKER) (test kmco=1812) 47.8 % PICC linePOCT-GLUCOSE [id number] 21:21:00* Test Item Value Reference Range Comments POC-GLUCOSE METER (BEAKER) (test tvfc=5552) 125 mg/dL 70-110 TESTED AT [facility] [address] [facility] [address] POCT-GLUCOSE [id number] 17:11:00* Test Item Value Reference Range Comments POC-GLUCOSE METER (BEAKER) (test mvmj=5110) 105 mg/dL 70-110 TESTED AT [facility] [address] [facility] [address] POCT-GLUCOSE [id number] 12:53:00* Test Item Value Reference Range Comments POC-GLUCOSE METER (BEAKER) (test vmjp=7936) 126 mg/dL 70-110 TESTED AT [facility] [address] [facility] [address] RAD, CHEST, 1 VIEW, NON [id number] 09:02:00Reason for exam:->pulm edemaShould this be performed at the bedside?->YesFINAL REPORT Chest dated 01/30/2019 COMPARISON: 01/29/2019 Clinical Information: pulm edema Comment: Heart is enlarged. AICD and right PICC line remain in place. Pulmonary vasculature is indistinct. Interstitial disease is seen bilaterally suggestive of vascular congestion or pulmonary edema. No pleural effusion or pneumothorax is seen. Impression: No interval change. Signed: Oanh Feldman Verified Date/Time: 01/30/2019 09:02:15 Reading Location: [facility] Radiology Reading Room EN SATURATION, [id number] 04:54:00* Test Item Value Reference Range Comments O2 SATURATION (MEASURED) (BEAKER) (test pigj=6163) 96.6 % PICC lineB-TYPE NATRIURETIC FACTOR (BNP)2019-01-30 04:29:00* Test Item Value Reference Range Comments B-TYPE NATRIURETIC PEPTIDE (BEAKER) (test fenf=930) 1112 pg/mL 0-100 [id number] 04:29:00* Test Item Value Reference Range Comments MAGNESIUM (BEAKER) (test lmld=347) 2.1 mg/dL 1.6-2.6 Specimen slightly hemolyzed COMPREHENSIVE METABOLIC [id number] 04:29:00* Test Item Value Reference Range Comments TOTAL PROTEIN (BEAKER) (test rrfo=158) 5.6 gm/dL 6.0-8.3 Specimen slightly hemolyzed ALBUMIN (BEAKER) (test ufdi=0281) 2.9 g/dL 3.5-5.0 Specimen slightly hemolyzed ALKALINE PHOSPHATASE (BEAKER) (test velt=976) 65 U/L 40-150 BILIRUBIN TOTAL (BEAKER) (test kqmm=292) 0.9 mg/dL 0.2-1.2 Specimen slightly hemolyzed SODIUM (BEAKER) (test lzju=192) 140 meq/L 136-145 POTASSIUM (BEAKER) (test luan=881) 4.5 meq/L 3.5-5.1 Specimen slightly hemolyzed CHLORIDE (BEAKER) (test mrhf=115) 110 meq/L 98-107 CO2 (BEAKER) (test ctjf=517) 23 meq/L 22-29 BLOOD UREA NITROGEN (BEAKER) (test tqcd=349) 16 mg/dL 7-21 CREATININE (BEAKER) (test rknw=440) 0.98 mg/dL 0.57-1.25 Specimen slightly hemolyzed GLUCOSE RANDOM (BEAKER) (test nbtq=365) 98 mg/dL 70-105 CALCIUM (BEAKER) (test nzgf=361) 9.0 mg/dL 8.4-10.2 AST (SGOT) (BEAKER) (test ejmb=425) 27 U/L 5-34 Specimen slightly hemolyzed ALT (SGPT) (BEAKER) (test mcdj=739) 52 U/L 6-55 Specimen slightly hemolyzed EGFR (BEAKER) (test pjrq=1169) 76 mL/min/1.73 sq m ESTIMATED GFR IS NOT ACCURATE CREATININE CLEARANCE IN PREDICTING GLOMERULAR FILTRATION RATE. ESTIMATED GFR IS NOT APPLICABLE FOR DIALYSIS PATIENTS. CBC W/PLT COUNT & AUTO [id number] 04:07:00* Test Item Value Reference Range Comments WHITE BLOOD CELL COUNT (BEAKER) (test gfdf=220) 6.0 K/ L 3.5-10.5 RED BLOOD CELL COUNT (BEAKER) (test phzp=483) 3.49 M/ L 4.63-6.08 HEMOGLOBIN (BEAKER) (test vkhj=689) 10.4 GM/DL 13.7-17.5 HEMATOCRIT (BEAKER) (test ebpp=564) 33.3 % 40.1-51.0 MEAN CORPUSCULAR VOLUME (BEAKER) (test cldi=126) 95.4 fL 79.0-92.2 MEAN CORPUSCULAR HEMOGLOBIN (BEAKER) (test bfpf=568) 29.8 pg 25.7-32.2 MEAN CORPUSCULAR HEMOGLOBIN CONC (BEAKER) (test pzle=952) 31.2 GM/DL 32.3-36.5 RED CELL DISTRIBUTION WIDTH (BEAKER) (test dpzc=630) 16.9 % 11.6-14.4 PLATELET COUNT (BEAKER) (test wdif=003) 171 K/CU MM 150-450 MEAN PLATELET VOLUME (BEAKER) (test lotq=257) 9.7 fL 9.4-12.4 NUCLEATED RED BLOOD CELLS (BEAKER) (test ubwi=667) 0 /100 WBC 0-0 NEUTROPHILS RELATIVE PERCENT (BEAKER) (test emav=417) 57 % LYMPHOCYTES RELATIVE PERCENT (BEAKER) (test ulgw=583) 30 % MONOCYTES RELATIVE PERCENT (BEAKER) (test lbpn=170) 8 % EOSINOPHILS RELATIVE PERCENT (BEAKER) (test kvyy=950) 4 % BASOPHILS RELATIVE PERCENT (BEAKER) (test eovb=850) 1 % NEUTROPHILS ABSOLUTE COUNT (BEAKER) (test sxxf=513) 3.38 K/ L 1.78-5.38 LYMPHOCYTES ABSOLUTE COUNT (BEAKER) (test tzih=833) 1.80 K/ L 1.32-3.57 MONOCYTES ABSOLUTE COUNT (BEAKER) (test blth=112) 0.49 K/ L 0.30-0.82 EOSINOPHILS ABSOLUTE COUNT (BEAKER) (test dfda=954) 0.24 K/ L 0.04-0.54 BASOPHILS ABSOLUTE COUNT (BEAKER) (test iwci=371) 0.05 K/ L 0.01-0.08 IMMATURE GRANULOCYTES-RELATIVE PERCENT (BEAKER) (test pcie=9290) 0 % 0-1 POCT-GLUCOSE [id number] 21:34:00* Test Item Value Reference Range Comments POC-GLUCOSE METER (BEAKER) (test pxrv=9842) 99 mg/dL 70-110 TESTED AT [facility] [address] [facility] [address] POCT-GLUCOSE [id number] 17:19:00* Test Item Value Reference Range Comments POC-GLUCOSE METER (BEAKER) (test caeq=6671) 130 mg/dL 70-110 TESTED AT [facility] [address] [facility] [address] POCT-GLUCOSE [id number] 13:51:00* Test Item Value Reference Range Comments POC-GLUCOSE METER (BEAKER) (test lidn=8155) 130 mg/dL 70-110 TESTED AT [facility] [address] [facility] [address] CBC W/PLT COUNT & AUTO [id number] 10:07:00* Test Item Value Reference Range Comments WHITE BLOOD CELL COUNT (BEAKER) (test nkbh=799) 6.0 K/ L 3.5-10.5 RED BLOOD CELL COUNT (BEAKER) (test sfts=961) 3.66 M/ L 4.63-6.08 HEMOGLOBIN (BEAKER) (test qvwf=862) 10.9 GM/DL 13.7-17.5 HEMATOCRIT (BEAKER) (test qpih=489) 35.2 % 40.1-51.0 MEAN CORPUSCULAR VOLUME (BEAKER) (test nfrg=591) 96.2 fL 79.0-92.2 MEAN CORPUSCULAR HEMOGLOBIN (BEAKER) (test xzya=077) 29.8 pg 25.7-32.2 MEAN CORPUSCULAR HEMOGLOBIN CONC (BEAKER) (test grvk=335) 31.0 GM/DL 32.3-36.5 RED CELL DISTRIBUTION WIDTH (BEAKER) (test jbfd=370) 16.9 % 11.6-14.4 PLATELET COUNT (BEAKER) (test qdqw=813) 176 K/CU MM 150-450 MEAN PLATELET VOLUME (BEAKER) (test tbmv=336) 9.7 fL 9.4-12.4 NUCLEATED RED BLOOD CELLS (BEAKER) (test oatx=254) 0 /100 WBC 0-0 (CELLAVISION MANUAL DIFF)2019-01-29 10:07:00* Test Item Value Reference Range Comments NEUTROPHILS - REL (CELLAVISION)(BEAKER) (test iugv=6581) 61 % LYMPHOCYTES - REL (CELLAVISION)(BEAKER) (test xzdx=5469) 31 % MONOCYTES - REL (CELLAVISION)(BEAKER) (test hlwe=7678) 6 % BASOPHILS - REL (CELLAVISION)(BEAKER) (test aqbw=0056) 2 % NEUTROPHILS - ABS (CELLAVISION)(BEAKER) (test ibti=6257) 3.66 K/ul 1.78-5.38 LYMPHOCYTES - ABS (CELLAVISION)(BEAKER) (test nyem=3783) 1.86 K/ul 1.32-3.57 MONOCYTES - ABS (CELLAVISION)(BEAKER) (test kpur=7602) 0.36 K/uL 0.30-0.82 BASOPHILS - ABS (CELLAVISION)(BEAKER) (test tyuw=9337) 0.12 K/uL 0.01-0.08 TOTAL COUNTED (BEAKER) (test odcl=6418) 100 SMUDGE CELLS (BEAKER) (test krtn=5743) Present GIANT PLATELETS (BEAKER) (test cncq=822) Present ANISOCYTOSIS (BEAKER) (test sdsw=616) 1+ few MICROCYTES (BEAKER) (test klxd=339) 1+ few POIKILOCYTES (BEAKER) (test ocws=390) 1+ few OVALOCYTES (BEAKER) (test njtd=636) 1+ few YESSICA CELLS (BEAKER) (test jxca=736) 1+ few ARTIFACT (CELLAVISION)(BEAKER) (test oklq=3012) Present PLATELET CONCENTRATION (CELLAVISION)(BEAKER) (test ybuj=2599) Adequate Received comment: User comments: Slide comments: POCT-GLUCOSE [id number] 08:39:00* Test Item Value Reference Range Comments POC-GLUCOSE METER (BEAKER) (test jkpa=7829) 87 mg/dL 70-110 TESTED AT [place] [id number] [facility] [address] RAD, CHEST, 1 VIEW, NON [id number] 06:46:00Reason for exam:->pulm edemaShould this be performed at the bedside?->YesFINAL REPORT RAD, CHEST, 1 VIEW, NON DEPT INDICATION: pulm edema COMPARISON: Prior day's exam FINDINGS: Portable frontal view of the chest. IMPRESSION: Support Lines: PICC tip overlies the SVC. Sternotomy wires and pacer device are unchanged. Lungs and pleura: Hazy right lower lobe airspace opacity and tiny left pleural effusion are decreased in the interim, suggestive of decreased edema. No pneumothorax.Heart and mediastinum: Stable contours. Additional findings: None. Signed: Elizabeth Blackmon MDReport Verified Date/Time: 01/29/2019 06:46:49 Reading Location: [facility] C013V Neuro Reading Room EN SATURATION, [id number] 05:24:00* Test Item Value Reference Range Comments O2 SATURATION (MEASURED) (BEAKER) (test ujzd=4648) 89.0 % PICC [id number] 05:13:00* Test Item Value Reference Range Comments MAGNESIUM (BEAKER) (test ergl=349) 1.7 mg/dL 1.6-2.6 COMPREHENSIVE METABOLIC [id number] 05:13:00* Test Item Value Reference Range Comments TOTAL PROTEIN (BEAKER) (test yekp=287) 5.6 gm/dL 6.0-8.3 ALBUMIN (BEAKER) (test zxnt=1556) 2.9 g/dL 3.5-5.0 ALKALINE PHOSPHATASE (BEAKER) (test wllc=646) 64 U/L 40-150 BILIRUBIN TOTAL (BEAKER) (test qelh=121) 1.1 mg/dL 0.2-1.2 SODIUM (BEAKER) (test nxls=724) 136 meq/L 136-145 POTASSIUM (BEAKER) (test spkh=383) 4.2 meq/L 3.5-5.1 CHLORIDE (BEAKER) (test gpup=111) 109 meq/L 98-107 CO2 (BEAKER) (test baxb=958) 21 meq/L 22-29 BLOOD UREA NITROGEN (BEAKER) (test mkex=034) 13 mg/dL 7-21 CREATININE (BEAKER) (test ahug=230) 0.90 mg/dL 0.57-1.25 GLUCOSE RANDOM (BEAKER) (test ffqe=290) 96 mg/dL 70-105 CALCIUM (BEAKER) (test kwav=204) 8.6 mg/dL 8.4-10.2 AST (SGOT) (BEAKER) (test tzyo=294) 24 U/L 5-34 ALT (SGPT) (BEAKER) (test owqf=510) 58 U/L 6-55 EGFR (MILAGRO) (test tgha=7920) 84 mL/min/1.73 sq m ESTIMATED GFR IS NOT ACCURATE CREATININE CLEARANCE IN PREDICTING GLOMERULAR FILTRATION RATE. ESTIMATED GFR IS NOT APPLICABLE FOR DIALYSIS PATIENTS. POCT-GLUCOSE [id number] 21:16:00* Test Item Value Reference Range Comments POC-GLUCOSE METER (MILAGRO) (test oegk=8220) 115 mg/dL 70-110 TESTED AT [place] [id number] [facility] [address] POCT-GLUCOSE [id number] 17:54:00* Test Item Value Reference Range Comments POC-GLUCOSE METER (MILAGRO) (test xwgc=3955) 139 mg/dL 70-110 TESTED AT [address] [address] POCT-GLUCOSE [id number] 13:51:00* Test Item Value Reference Range Comments POC-GLUCOSE METER (MILAGRO) (test wcdu=1667) 158 mg/dL 70-110 TESTED AT [place] [id number] [facility] [address] RAD, CHEST, 1 VIEW, NON [id number] 10:53:00Reason for exam:->pulm edemaShould this be performed at the bedside?->YesFINAL REPORT CHEST ONE VIEW HISTORY: Pulmonary edema COMPARISON: 01/27/2019 FINDINGS: Single portable AP examination of the chest was performed. Interstitial pulmonary edema has decreased since the prior study. Small right pleural effusion with adjacent mild right lung base compressive atelectasis, unchanged. No pneumothorax. No left pleural effusion. The cardiac shadow is enlarged, unchanged. Left subclavian transvenous cardiac pacing hardware remains in place. Right PICC line tip is in the SVC region. Signed: Khalif Ryan Verified Date/Time: 01/28/2019 10:53:27 Reading Location: [address] Reading Room -GLUCOSE [id number] 08:58:00* Test Item Value Reference Range Comments POC-GLUCOSE METER (BEAKER) (test hcrj=5199) 99 mg/dL 70-110 TESTED AT [facility] [address] [facility] [address] [id number] 07:09:00* Test Item Value Reference Range Comments MAGNESIUM (BEAKER) (test tkgs=600) 1.8 mg/dL 1.6-2.6 COMPREHENSIVE METABOLIC [id number] 07:09:00* Test Item Value Reference Range Comments TOTAL PROTEIN (BEAKER) (test qxka=604) 5.6 gm/dL 6.0-8.3 ALBUMIN (BEAKER) (test oxng=8731) 3.0 g/dL 3.5-5.0 ALKALINE PHOSPHATASE (BEAKER) (test tnqv=636) 67 U/L 40-150 BILIRUBIN TOTAL (BEAKER) (test lyyz=517) 0.9 mg/dL 0.2-1.2 SODIUM (BEAKER) (test rcbs=087) 139 meq/L 136-145 POTASSIUM (BEAKER) (test udly=924) 3.9 meq/L 3.5-5.1 CHLORIDE (BEAKER) (test depj=496) 110 meq/L 98-107 CO2 (BEAKER) (test erjg=497) 22 meq/L 22-29 BLOOD UREA NITROGEN (BEAKER) (test hzcw=002) 16 mg/dL 7-21 CREATININE (BEAKER) (test jjok=660) 0.91 mg/dL 0.57-1.25 GLUCOSE RANDOM (BEAKER) (test xmcp=036) 94 mg/dL 70-105 CALCIUM (BEAKER) (test kjpr=165) 8.7 mg/dL 8.4-10.2 AST (SGOT) (BEAKER) (test tibk=873) 26 U/L 5-34 ALT (SGPT) (BEAKER) (test axhy=103) 70 U/L 6-55 EGFR (BEAKER) (test kqrv=4559) 83 mL/min/1.73 sq m ESTIMATED GFR IS NOT ACCURATE CREATININE CLEARANCE IN PREDICTING GLOMERULAR FILTRATION RATE. ESTIMATED GFR IS NOT APPLICABLE FOR DIALYSIS PATIENTS. CBC W/PLT COUNT & AUTO [id number] 05:48:00* Test Item Value Reference Range Comments WHITE BLOOD CELL COUNT (BEAKER) (test kdjs=265) 6.9 K/ L 3.5-10.5 RED BLOOD CELL COUNT (BEAKER) (test uwgk=490) 3.75 M/ L 4.63-6.08 HEMOGLOBIN (BEAKER) (test ggub=960) 11.3 GM/DL 13.7-17.5 HEMATOCRIT (BEAKER) (test cqvl=612) 36.3 % 40.1-51.0 MEAN CORPUSCULAR VOLUME (BEAKER) (test puiy=894) 96.8 fL 79.0-92.2 MEAN CORPUSCULAR HEMOGLOBIN (BEAKER) (test rbxc=669) 30.1 pg 25.7-32.2 MEAN CORPUSCULAR HEMOGLOBIN CONC (BEAKER) (test ucmu=028) 31.1 GM/DL 32.3-36.5 RED CELL DISTRIBUTION WIDTH (BEAKER) (test gxvg=834) 17.1 % 11.6-14.4 PLATELET COUNT (BEAKER) (test dlxh=112) 176 K/CU MM 150-450 MEAN PLATELET VOLUME (BEAKER) (test nqwt=648) 9.9 fL 9.4-12.4 NUCLEATED RED BLOOD CELLS (BEAKER) (test tqxb=179) 0 /100 WBC 0-0 NEUTROPHILS RELATIVE PERCENT (BEAKER) (test uksc=649) 56 % LYMPHOCYTES RELATIVE PERCENT (BEAKER) (test glax=885) 30 % MONOCYTES RELATIVE PERCENT (BEAKER) (test mwxh=485) 9 % EOSINOPHILS RELATIVE PERCENT (BEAKER) (test ijmk=917) 3 % BASOPHILS RELATIVE PERCENT (BEAKER) (test agat=250) 2 % NEUTROPHILS ABSOLUTE COUNT (BEAKER) (test kfjh=160) 3.84 K/ L 1.78-5.38 LYMPHOCYTES ABSOLUTE COUNT (BEAKER) (test uimd=616) 2.08 K/ L 1.32-3.57 MONOCYTES ABSOLUTE COUNT (BEAKER) (test mkqv=403) 0.61 K/ L 0.30-0.82 EOSINOPHILS ABSOLUTE COUNT (BEAKER) (test lows=048) 0.23 K/ L 0.04-0.54 BASOPHILS ABSOLUTE COUNT (BEAKER) (test pkip=786) 0.10 K/ L 0.01-0.08 IMMATURE GRANULOCYTES-RELATIVE PERCENT (BEAKER) (test ngdi=9175) 0 % 0-1 OXYGEN SATURATION, [id number] 05:45:00* Test Item Value Reference Range Comments O2 SATURATION (MEASURED) (BEAKER) (test nham=1270) 95.8 % PICC linePOCT-GLUCOSE [id number] 21:37:00* Test Item Value Reference Range Comments POC-GLUCOSE METER (BEAKER) (test cdho=2125) 133 mg/dL 70-110 TESTED AT [facility] [address] [facility] [address] POCT-GLUCOSE [id number] 18:32:00* Test Item Value Reference Range Comments POC-GLUCOSE METER (BEAKER) (test mpzs=5279) 174 mg/dL 70-110 TESTED AT [facility] [address] [facility] [address] POCT-GLUCOSE [id number] 17:50:00* Test Item Value Reference Range Comments POC-GLUCOSE METER (BEAKER) (test told=3622) 134 mg/dL 70-110 TESTED AT [address] [address] POCT-GLUCOSE [id number] 13:42:00* Test Item Value Reference Range Comments POC-GLUCOSE METER (BEAKER) (test fdym=3236) 101 mg/dL 70-110 TESTED AT [place] [id number] [facility] [address] POCT-GLUCOSE [id number] 09:05:00* Test Item Value Reference Range Comments POC-GLUCOSE METER (BEAKER) (test sknw=3588) 82 mg/dL 70-110 [address]ED AT [address] [address] RAD, CHEST, 1 VIEW, NON [id number] 08:48:00Reason for exam:->pulm edemaShould this be performed at the bedside?->YesFINAL REPORT Portable chest. CLINICAL HISTORY: pulm edema. COMPARISON STUDY: Chest x-ray from yesterday. FINDINGS: The cardiac silhouette is enlarged. Sternotomy wires are seen. The pulmonary parenchyma demonstrates atelectasis or consolidation in the right lung base with a small right pleural effusion. The support lines and tubes are unchanged. No pneumothorax is seen. Degenerative changes are noted. IMPRESSION: Interval development of atelectasis or c onsolidation in the right lung base with a small right pleural effusion. In the right clinical setting, a superimposed infection would be difficult to exclude. Clinical correlation and short term imaging follow-up could be made to exclude o ther etiologies. Signed: Harpreet Delatorre MDReport Verified Date/Time: 08:48:27 Reading Location: [facility] Radiology Reading Room Laya fiorella signed by: HARPREET DELATORRE M.D. on 01/27/2019 08:48 AM OXYGEN SATURATION, [id number] 06:32:00* Test Item Value Reference Range Comments O2 SATURATION (MEASURED) (BEAKER) (test vtit=8485) 93.5 % PICC [id number] 05:59:00* Test Item Value Reference Range Comments MAGNESIUM (BEAKER) (test ecit=839) 1.9 mg/dL 1.6-2.6 COMPREHENSIVE METABOLIC [id number] 05:59:00* Test Item Value Reference Range Comments TOTAL PROTEIN (BEAKER) (test ouxg=744) 5.3 gm/dL 6.0-8.3 ALBUMIN (BEAKER) (test nogk=2332) 2.8 g/dL 3.5-5.0 ALKALINE PHOSPHATASE (BEAKER) (test tksg=556) 61 U/L 40-150 BILIRUBIN TOTAL (BEAKER) (test frjf=911) 1.1 mg/dL 0.2-1.2 SODIUM (BEAKER) (test kwct=835) 139 meq/L 136-145 POTASSIUM (BEAKER) (test piit=521) 3.8 meq/L 3.5-5.1 CHLORIDE (BEAKER) (test rssq=126) 109 meq/L 98-107 CO2 (BEAKER) (test uewj=716) 26 meq/L 22-29 BLOOD UREA NITROGEN (BEAKER) (test pxsr=832) 14 mg/dL 7-21 CREATININE (BEAKER) (test utdk=853) 0.99 mg/dL 0.57-1.25 GLUCOSE RANDOM (BEAKER) (test mmag=800) 120 mg/dL 70-105 CALCIUM (BEAKER) (test kvfd=827) 8.6 mg/dL 8.4-10.2 AST (SGOT) (BEAKER) (test irsy=815) 26 U/L 5-34 ALT (SGPT) (BEAKER) (test pdku=178) 88 U/L 6-55 EGFR (BEAKER) (test tdho=3678) 75 mL/min/1.73 sq m ESTIMATED GFR IS NOT ACCURATE CREATININE CLEARANCE IN PREDICTING GLOMERULAR FILTRATION RATE. ESTIMATED GFR IS NOT APPLICABLE FOR DIALYSIS PATIENTS. CBC W/PLT COUNT & AUTO [id number] 05:25:00* Test Item Value Reference Range Comments WHITE BLOOD CELL COUNT (BEAKER) (test kiuy=648) 5.5 K/ L 3.5-10.5 RED BLOOD CELL COUNT (BEAKER) (test ajsq=985) 3.47 M/ L 4.63-6.08 HEMOGLOBIN (BEAKER) (test fxoy=981) 10.3 GM/DL 13.7-17.5 HEMATOCRIT (BEAKER) (test tsfd=704) 33.5 % 40.1-51.0 MEAN CORPUSCULAR VOLUME (BEAKER) (test fqhl=914) 96.5 fL 79.0-92.2 MEAN CORPUSCULAR HEMOGLOBIN (BEAKER) (test jfap=615) 29.7 pg 25.7-32.2 MEAN CORPUSCULAR HEMOGLOBIN CONC (BEAKER) (test jnys=559) 30.7 GM/DL 32.3-36.5 RED CELL DISTRIBUTION WIDTH (BEAKER) (test wdgm=734) 17.0 % 11.6-14.4 PLATELET COUNT (BEAKER) (test rsck=133) 165 K/CU MM 150-450 MEAN PLATELET VOLUME (BEAKER) (test njrx=482) 9.5 fL 9.4-12.4 NUCLEATED RED BLOOD CELLS (BEAKER) (test ozzl=330) 0 /100 WBC 0-0 NEUTROPHILS RELATIVE PERCENT (BEAKER) (test hutg=288) 57 % LYMPHOCYTES RELATIVE PERCENT (BEAKER) (test abzw=608) 28 % MONOCYTES RELATIVE PERCENT (BEAKER) (test fkfu=734) 10 % EOSINOPHILS RELATIVE PERCENT (BEAKER) (test iexx=007) 4 % BASOPHILS RELATIVE PERCENT (BEAKER) (test brgq=575) 1 % NEUTROPHILS ABSOLUTE COUNT (BEAKER) (test qcrs=600) 3.18 K/ L 1.78-5.38 LYMPHOCYTES ABSOLUTE COUNT (BEAKER) (test hwdh=802) 1.56 K/ L 1.32-3.57 MONOCYTES ABSOLUTE COUNT (BEAKER) (test mfqt=929) 0.53 K/ L 0.30-0.82 EOSINOPHILS ABSOLUTE COUNT (BEAKER) (test asvv=593) 0.20 K/ L 0.04-0.54 BASOPHILS ABSOLUTE COUNT (BEAKER) (test wxky=629) 0.05 K/ L 0.01-0.08 IMMATURE GRANULOCYTES-RELATIVE PERCENT (BEAKER) (test mpqt=8034) 0 % 0-1 POCT-GLUCOSE [id number] 22:14:00* Test Item Value Reference Range Comments POC-GLUCOSE METER (BEAKER) (test xxom=0906) 94 mg/dL 70-110 TESTED AT [facility] [address] [facility] [address] RAD, CHEST, 1 VIEW, NON [id number] 09:54:00Reason for exam:->pulm edemaShould this be performed at the bedside?->YesFINAL REPORT Chest one view. Clinical history: pulm edema Comparison: 01/25/2019 Discussion: A frontal chest is provided. Cardiac silhouette is enlarged. Lines and tubes are in stable position. Stable appearance of vascular congestion and mild interstitial edema. Small bilateral pleural effusions. No pneumothorax. Signed: Jaylene Martínez Verified Date/Time: 01/26/2019 09:54:24 Reading Location: [facility] Radiology Reading Room [id number] 07:42:00* Test Item Value Reference Range Comments MAGNESIUM (BEAKER) (test fvjl=851) 1.7 mg/dL 1.6-2.6 COMPREHENSIVE METABOLIC [id number] 07:42:00* Test Item Value Reference Range Comments TOTAL PROTEIN (BEAKER) (test vpgw=505) 5.6 gm/dL 6.0-8.3 ALBUMIN (BEAKER) (test wxxj=6576) 3.0 g/dL 3.5-5.0 ALKALINE PHOSPHATASE (BEAKER) (test sgyb=086) 65 U/L 40-150 BILIRUBIN TOTAL (BEAKER) (test bggz=876) 1.6 mg/dL 0.2-1.2 SODIUM (BEAKER) (test avvu=144) 138 meq/L 136-145 POTASSIUM (BEAKER) (test ulfz=329) 3.8 meq/L 3.5-5.1 CHLORIDE (BEAKER) (test hcit=621) 108 meq/L 98-107 CO2 (BEAKER) (test eaoq=266) 23 meq/L 22-29 BLOOD UREA NITROGEN (BEAKER) (test idon=319) 14 mg/dL 7-21 CREATININE (BEAKER) (test uukl=870) 0.83 mg/dL 0.57-1.25 GLUCOSE RANDOM (BEAKER) (test yoxk=043) 90 mg/dL 70-105 CALCIUM (BEAKER) (test fxix=744) 8.7 mg/dL 8.4-10.2 AST (SGOT) (BEAKER) (test kton=632) 34 U/L 5-34 ALT (SGPT) (BEAKER) (test fvjm=789) 108 U/L 6-55 EGFR (BEAKER) (test hfqn=7869) 92 mL/min/1.73 sq m ESTIMATED GFR IS NOT ACCURATE CREATININE CLEARANCE IN PREDICTING GLOMERULAR FILTRATION RATE. ESTIMATED GFR IS NOT APPLICABLE FOR DIALYSIS PATIENTS. CBC W/PLT COUNT & AUTO [id number] 07:09:00* Test Item Value Reference Range Comments WHITE BLOOD CELL COUNT (BEAKER) (test oyuw=993) 5.1 K/ L 3.5-10.5 RED BLOOD CELL COUNT (BEAKER) (test kwsl=623) 3.44 M/ L 4.63-6.08 HEMOGLOBIN (BEAKER) (test cvxs=601) 10.4 GM/DL 13.7-17.5 HEMATOCRIT (BEAKER) (test citw=334) 33.4 % 40.1-51.0 MEAN CORPUSCULAR VOLUME (BEAKER) (test bwze=899) 97.1 fL 79.0-92.2 MEAN CORPUSCULAR HEMOGLOBIN (BEAKER) (test yqxe=606) 30.2 pg 25.7-32.2 MEAN CORPUSCULAR HEMOGLOBIN CONC (BEAKER) (test ljpy=966) 31.1 GM/DL 32.3-36.5 RED CELL DISTRIBUTION WIDTH (BEAKER) (test iqbp=604) 17.0 % 11.6-14.4 PLATELET COUNT (BEAKER) (test ncnv=360) 157 K/CU MM 150-450 MEAN PLATELET VOLUME (BEAKER) (test ndap=439) 10.0 fL 9.4-12.4 NUCLEATED RED BLOOD CELLS (BEAKER) (test vsim=922) 0 /100 WBC 0-0 NEUTROPHILS RELATIVE PERCENT (BEAKER) (test hpux=878) 60 % LYMPHOCYTES RELATIVE PERCENT (BEAKER) (test yghe=920) 25 % MONOCYTES RELATIVE PERCENT (BEAKER) (test nvuz=870) 10 % EOSINOPHILS RELATIVE PERCENT (BEAKER) (test kzcz=106) 4 % BASOPHILS RELATIVE PERCENT (BEAKER) (test yhgy=977) 1 % NEUTROPHILS ABSOLUTE COUNT (BEAKER) (test rbdl=858) 3.04 K/ L 1.78-5.38 LYMPHOCYTES ABSOLUTE COUNT (BEAKER) (test nbfs=953) 1.28 K/ L 1.32-3.57 MONOCYTES ABSOLUTE COUNT (BEAKER) (test hdko=646) 0.52 K/ L 0.30-0.82 EOSINOPHILS ABSOLUTE COUNT (BEAKER) (test pxvu=991) 0.20 K/ L 0.04-0.54 BASOPHILS ABSOLUTE COUNT (BEAKER) (test uxsf=956) 0.04 K/ L 0.01-0.08 IMMATURE GRANULOCYTES-RELATIVE PERCENT (BEAKER) (test ycal=4614) 0 % 0-1 POCT-GLUCOSE [id number] 22:14:00* Test Item Value Reference Range Comments POC-GLUCOSE METER (BEAKER) (test imqw=7829) 135 mg/dL 70-110 TESTED AT [facility] [address] [facility] [address] RAD, CHEST, 1 VIEW, NON [id number] 11:37:00Reason for exam:->pulm edemaShould this be performed at the bedside?->YesFINAL REPORT Portable chest. CLINICAL HISTORY: pulm edema. COMPARISON STUDY: Chest x-ray from yesterday. FINDINGS: The cardiac silhouette is enlarged. Sternotomy wires are seen. The pulmonary parenchyma demonstrates improvement in airspace opacity in the right mid and lung base. Continued interstitial markings are seen. The support lines and tubes are unchanged. No pneumothorax is seen. Degenerative changes are noted. IMPRESSION: Improvement in opacity in the right lung. Signed: Harpreet Delatorre MDReport Verified Date/Time: 01/25/2019 11:37:40 Reading Location: [facility] Radiology Reading Room -GLUCOSE METER 2019-01-25 09:37:00* Test Item Value Reference Range Comments POC-GLUCOSE METER (BEAKER) (test ozca=6994) 113 mg/dL 70-110 TESTED AT [facility] [address] [facility] [address] [id number] 05:44:00* Test Item Value Reference Range Comments FERRITIN (BEAKER) (test etqo=535) 183 ng/mL 5-275 [id number] 05:26:00* Test Item Value Reference Range Comments MAGNESIUM (BEAKER) (test qeos=780) 1.8 mg/dL 1.6-2.6 COMPREHENSIVE METABOLIC [id number] 05:26:00* Test Item Value Reference Range Comments TOTAL PROTEIN (BEAKER) (test duyc=659) 5.7 gm/dL 6.0-8.3 ALBUMIN (BEAKER) (test dlcz=1995) 3.0 g/dL 3.5-5.0 ALKALINE PHOSPHATASE (BEAKER) (test thll=193) 64 U/L 40-150 BILIRUBIN TOTAL (BEAKER) (test nnke=461) 1.8 mg/dL 0.2-1.2 SODIUM (BEAKER) (test ohlt=251) 136 meq/L 136-145 POTASSIUM (BEAKER) (test jhxz=089) 4.2 meq/L 3.5-5.1 CHLORIDE (BEAKER) (test odkl=695) 105 meq/L 98-107 CO2 (BEAKER) (test eapo=460) 25 meq/L 22-29 BLOOD UREA NITROGEN (BEAKER) (test efve=885) 16 mg/dL 7-21 CREATININE (BEAKER) (test mbst=091) 0.93 mg/dL 0.57-1.25 GLUCOSE RANDOM (BEAKER) (test dwak=267) 90 mg/dL 70-105 CALCIUM (BEAKER) (test owme=162) 8.9 mg/dL 8.4-10.2 AST (SGOT) (BEAKER) (test opgy=739) 38 U/L 5-34 ALT (SGPT) (BEAKER) (test ddqj=745) 143 U/L 6-55 EGFR (BEAKER) (test iacr=8294) 81 mL/min/1.73 sq m ESTIMATED GFR IS NOT ACCURATE CREATININE CLEARANCE IN PREDICTING GLOMERULAR FILTRATION RATE. ESTIMATED GFR IS NOT APPLICABLE FOR DIALYSIS PATIENTS. IRON, TIBC, % SAT. (WITHOUT FERRITIN)2019-01-25 05:20:00* Test Item Value Reference Range Comments IRON (BEAKER) (test tigd=595) 92.0 ug/dL 40.0-160.0 TOTAL IRON BINDING CAPACITY (BEAKER) (test ywjz=325) 300 ug/dL 250-450 IRON % SATURATION (2) (BEAKER) (test yrsn=3669) 31 % 20-55 OXYGEN SATURATION, [id number] 04:59:00* Test Item Value Reference Range Comments O2 SATURATION (MEASURED) (BEAKER) (test wtos=4323) 92.9 % PICC lineCBC W/PLT COUNT & AUTO [id number] 04:50:00* Test Item Value Reference Range Comments WHITE BLOOD CELL COUNT (BEAKER) (test kbry=610) 5.6 K/ L 3.5-10.5 RED BLOOD CELL COUNT (BEAKER) (test xdmq=504) 3.54 M/ L 4.63-6.08 HEMOGLOBIN (BEAKER) (test sxvn=058) 10.5 GM/DL 13.7-17.5 HEMATOCRIT (BEAKER) (test pcmv=221) 34.3 % 40.1-51.0 MEAN CORPUSCULAR VOLUME (BEAKER) (test cntd=173) 96.9 fL 79.0-92.2 MEAN CORPUSCULAR HEMOGLOBIN (BEAKER) (test vxxn=457) 29.7 pg 25.7-32.2 MEAN CORPUSCULAR HEMOGLOBIN CONC (BEAKER) (test mnsq=131) 30.6 GM/DL 32.3-36.5 RED CELL DISTRIBUTION WIDTH (BEAKER) (test etcw=442) 16.9 % 11.6-14.4 PLATELET COUNT (BEAKER) (test hjir=543) 147 K/CU MM 150-450 MEAN PLATELET VOLUME (BEAKER) (test sckd=730) 9.8 fL 9.4-12.4 NUCLEATED RED BLOOD CELLS (BEAKER) (test pcmw=562) 0 /100 WBC 0-0 NEUTROPHILS RELATIVE PERCENT (BEAKER) (test fwwj=257) 57 % LYMPHOCYTES RELATIVE PERCENT (BEAKER) (test jcra=358) 28 % MONOCYTES RELATIVE PERCENT (BEAKER) (test nipi=843) 10 % EOSINOPHILS RELATIVE PERCENT (BEAKER) (test pwac=521) 4 % BASOPHILS RELATIVE PERCENT (BEAKER) (test xlgt=807) 1 % NEUTROPHILS ABSOLUTE COUNT (BEAKER) (test gnwr=884) 3.17 K/ L 1.78-5.38 LYMPHOCYTES ABSOLUTE COUNT (BEAKER) (test bifp=047) 1.54 K/ L 1.32-3.57 MONOCYTES ABSOLUTE COUNT (BEAKER) (test ybun=393) 0.58 K/ L 0.30-0.82 EOSINOPHILS ABSOLUTE COUNT (BEAKER) (test hgqq=587) 0.21 K/ L 0.04-0.54 BASOPHILS ABSOLUTE COUNT (BEAKER) (test ewya=149) 0.06 K/ L 0.01-0.08 IMMATURE GRANULOCYTES-RELATIVE PERCENT (BEAKER) (test anbc=7208) 1 % 0-1 POCT-GLUCOSE [id number] 21:33:00* Test Item Value Reference Range Comments POC-GLUCOSE METER (BEAKER) (test qvad=6492) 126 mg/dL 70-110 TESTED AT [address] [address] POCT-GLUCOSE [id number] 17:35:00* Test Item Value Reference Range Comments POC-GLUCOSE METER (BEAKER) (test flvt=5509) 113 mg/dL 70-110 TESTED AT [address] [address] POCT-GLUCOSE [id number] 12:03:00* Test Item Value Reference Range Comments POC-GLUCOSE METER (BEAKER) (test okch=6000) 135 mg/dL 70-110 TESTED AT [address] [address] RAD, CHEST, 1 VIEW, NON [id number] 09:48:00Reason for exam:->pulm edemaShould this be performed at the bedside?->YesFINAL REPORT Chest one view. Clinical history: pulm edema Comparison: 01/23/2019 Discussion: A frontal chest is provided. Cardiomediastinal contours are unchanged. Lines and tubes are in stable position. There is mild to moderate vascular congestion and interstitial edema. Slightly more pronounced perihilar region hazy opacities may reflect progression of pulmonary edema. Small right effusion. Stable area of airspace opacity in the right lower lung. No pneumothorax. Signed: Jaylene Martínezort Verified Date/Time: 01/24/2019 09:48:13 Reading Location: [facility] Radiology Reading Room -GLUCOSE [id number] 08:30:00* Test Item Value Reference Range Comments POC-GLUCOSE METER (BEAKER) (test bbqj=7807) 94 mg/dL 70-110 TESTED AT [facility] [address] [facility] [address] [id number] 05:49:00* Test Item Value Reference Range Comments MAGNESIUM (BEAKER) (test ainr=879) 1.8 mg/dL 1.6-2.6 COMPREHENSIVE METABOLIC [id number] 05:49:00* Test Item Value Reference Range Comments TOTAL PROTEIN (BEAKER) (test mpkd=051) 5.7 gm/dL 6.0-8.3 ALBUMIN (BEAKER) (test gnah=2837) 3.0 g/dL 3.5-5.0 ALKALINE PHOSPHATASE (BEAKER) (test xpje=863) 66 U/L 40-150 BILIRUBIN TOTAL (BEAKER) (test hiad=124) 1.7 mg/dL 0.2-1.2 SODIUM (BEAKER) (test zfbe=965) 134 meq/L 136-145 POTASSIUM (BEAKER) (test xrsx=288) 4.2 meq/L 3.5-5.1 CHLORIDE (BEAKER) (test yhpi=224) 103 meq/L 98-107 CO2 (BEAKER) (test atvj=798) 26 meq/L 22-29 BLOOD UREA NITROGEN (BEAKER) (test qwck=216) 18 mg/dL 7-21 CREATININE (BEAKER) (test vuyt=325) 0.86 mg/dL 0.57-1.25 GLUCOSE RANDOM (BEAKER) (test mnfh=597) 84 mg/dL 70-105 CALCIUM (BEAKER) (test laff=194) 8.8 mg/dL 8.4-10.2 AST (SGOT) (BEAKER) (test isfu=521) 52 U/L 5-34 ALT (SGPT) (BEAKER) (test bthb=418) 196 U/L 6-55 EGFR (BEAKER) (test rlua=7322) 88 mL/min/1.73 sq m ESTIMATED GFR IS NOT ACCURATE CREATININE CLEARANCE IN PREDICTING GLOMERULAR FILTRATION RATE. ESTIMATED GFR IS NOT APPLICABLE FOR DIALYSIS PATIENTS. OXYGEN SATURATION, [id number] 05:33:00* Test Item Value Reference Range Comments O2 SATURATION (MEASURED) (BEAKER) (test evbo=6545) 67.3 % PICC lineCBC W/PLT COUNT & AUTO [id number] 05:24:00* Test Item Value Reference Range Comments WHITE BLOOD CELL COUNT (BEAKER) (test aoli=874) 6.2 K/ L 3.5-10.5 RED BLOOD CELL COUNT (BEAKER) (test pxzs=258) 3.68 M/ L 4.63-6.08 HEMOGLOBIN (BEAKER) (test ratl=629) 11.1 GM/DL 13.7-17.5 HEMATOCRIT (BEAKER) (test gpvh=592) 35.5 % 40.1-51.0 MEAN CORPUSCULAR VOLUME (BEAKER) (test lxbh=009) 96.5 fL 79.0-92.2 MEAN CORPUSCULAR HEMOGLOBIN (BEAKER) (test snhx=928) 30.2 pg 25.7-32.2 MEAN CORPUSCULAR HEMOGLOBIN CONC (BEAKER) (test ycdm=004) 31.3 GM/DL 32.3-36.5 RED CELL DISTRIBUTION WIDTH (BEAKER) (test yeux=340) 16.9 % 11.6-14.4 PLATELET COUNT (BEAKER) (test mhsi=070) 136 K/CU MM 150-450 MEAN PLATELET VOLUME (BEAKER) (test whwh=410) 9.9 fL 9.4-12.4 NUCLEATED RED BLOOD CELLS (BEAKER) (test cqha=162) 0 /100 WBC 0-0 NEUTROPHILS RELATIVE PERCENT (BEAKER) (test lajz=105) 57 % LYMPHOCYTES RELATIVE PERCENT (BEAKER) (test adia=256) 26 % MONOCYTES RELATIVE PERCENT (BEAKER) (test iqyr=271) 12 % EOSINOPHILS RELATIVE PERCENT (BEAKER) (test uwrj=037) 4 % BASOPHILS RELATIVE PERCENT (BEAKER) (test jfgw=322) 1 % NEUTROPHILS ABSOLUTE COUNT (BEAKER) (test sdbh=739) 3.52 K/ L 1.78-5.38 LYMPHOCYTES ABSOLUTE COUNT (BEAKER) (test iyxk=891) 1.59 K/ L 1.32-3.57 MONOCYTES ABSOLUTE COUNT (BEAKER) (test rfim=845) 0.74 K/ L 0.30-0.82 EOSINOPHILS ABSOLUTE COUNT (BEAKER) (test zflx=961) 0.23 K/ L 0.04-0.54 BASOPHILS ABSOLUTE COUNT (BEAKER) (test bodq=036) 0.06 K/ L 0.01-0.08 IMMATURE GRANULOCYTES-RELATIVE PERCENT (BEAKER) (test qsjz=6414) 1 % 0-1 POCT-GLUCOSE [id number] 22:16:00* Test Item Value Reference Range Comments POC-GLUCOSE METER (BEAKER) (test aqyy=2684) 112 mg/dL 70-110 TESTED AT [address] [address] POCT-GLUCOSE [id number] 16:04:00* Test Item Value Reference Range Comments POC-GLUCOSE METER (BEAKER) (test ifus=5984) 96 mg/dL 70-110 TESTED AT [address] [address] POCT-GLUCOSE [id number] 12:16:00* Test Item Value Reference Range Comments POC-GLUCOSE METER (BEAKER) (test dnbg=6640) 111 mg/dL 70-110 TESTED AT [address] [address] POCT-GLUCOSE [id number] 07:44:00* Test Item Value Reference Range Comments POC-GLUCOSE METER (BEAKER) (test ipiq=2037) 89 mg/dL 70-110 TESTED AT [address] [address] [id number] 04:37:00* Test Item Value Reference Range Comments MAGNESIUM (BEAKER) (test nfvr=681) 2.2 mg/dL 1.6-2.6 Specimen slightly hemolyzed [id number] 04:37:00* Test Item Value Reference Range Comments PHOSPHORUS (BEAKER) (test zndt=147) 2.8 mg/dL 2.3-4.7 Specimen slightly hemolyzed COMPREHENSIVE METABOLIC [id number] 04:37:00* Test Item Value Reference Range Comments TOTAL PROTEIN (BEAKER) (test mqso=409) 5.8 gm/dL 6.0-8.3 Specimen slightly hemolyzed ALBUMIN (BEAKER) (test sslx=3395) 3.0 g/dL 3.5-5.0 Specimen slightly hemolyzed ALKALINE PHOSPHATASE (BEAKER) (test yecl=692) 67 U/L 40-150 BILIRUBIN TOTAL (BEAKER) (test azgd=423) 1.5 mg/dL 0.2-1.2 Specimen slightly hemolyzed SODIUM (BEAKER) (test lxkj=994) 134 meq/L 136-145 POTASSIUM (BEAKER) (test lvjo=583) 4.5 meq/L 3.5-5.1 Specimen slightly hemolyzed CHLORIDE (BEAKER) (test wmxq=488) 101 meq/L 98-107 CO2 (BEAKER) (test oijk=966) 27 meq/L 22-29 BLOOD UREA NITROGEN (BEAKER) (test vgrz=644) 21 mg/dL 7-21 CREATININE (BEAKER) (test ragh=519) 1.11 mg/dL 0.57-1.25 Specimen slightly hemolyzed GLUCOSE RANDOM (BEAKER) (test brpm=790) 90 mg/dL 70-105 CALCIUM (BEAKER) (test alzj=873) 8.5 mg/dL 8.4-10.2 AST (SGOT) (BEAKER) (test ubgs=279) 72 U/L 5-34 Specimen slightly hemolyzed ALT (SGPT) (BEAKER) (test yktd=925) 255 U/L 6-55 Specimen slightly hemolyzed EGFR (BEAKER) (test ltjh=5752) 66 mL/min/1.73 sq m ESTIMATED GFR IS NOT ACCURATE CREATININE CLEARANCE IN PREDICTING GLOMERULAR FILTRATION RATE. ESTIMATED GFR IS NOT APPLICABLE FOR DIALYSIS PATIENTS. OXYGEN SATURATION, [id number] 04:26:00* Test Item Value Reference Range Comments O2 SATURATION (MEASURED) (BEAKER) (test yfnl=6100) 69.4 % PICC lineCBC W/PLT COUNT & AUTO [id number] 04:12:00* Test Item Value Reference Range Comments WHITE BLOOD CELL COUNT (BEAKER) (test dabq=815) 6.5 K/ L 3.5-10.5 RED BLOOD CELL COUNT (BEAKER) (test zoct=616) 3.73 M/ L 4.63-6.08 HEMOGLOBIN (BEAKER) (test dmff=630) 11.1 GM/DL 13.7-17.5 HEMATOCRIT (BEAKER) (test wnbn=772) 35.4 % 40.1-51.0 MEAN CORPUSCULAR VOLUME (BEAKER) (test dtwn=135) 94.9 fL 79.0-92.2 MEAN CORPUSCULAR HEMOGLOBIN (BEAKER) (test bskf=893) 29.8 pg 25.7-32.2 MEAN CORPUSCULAR HEMOGLOBIN CONC (BEAKER) (test magm=197) 31.4 GM/DL 32.3-36.5 RED CELL DISTRIBUTION WIDTH (BEAKER) (test eigi=479) 17.2 % 11.6-14.4 PLATELET COUNT (BEAKER) (test fxcr=451) 143 K/CU MM 150-450 MEAN PLATELET VOLUME (BEAKER) (test ssmc=325) 9.9 fL 9.4-12.4 NUCLEATED RED BLOOD CELLS (BEAKER) (test vint=884) 0 /100 WBC 0-0 NEUTROPHILS RELATIVE PERCENT (BEAKER) (test jedp=352) 58 % LYMPHOCYTES RELATIVE PERCENT (BEAKER) (test mxcr=951) 24 % MONOCYTES RELATIVE PERCENT (BEAKER) (test jpwy=225) 13 % EOSINOPHILS RELATIVE PERCENT (BEAKER) (test uwzg=005) 3 % BASOPHILS RELATIVE PERCENT (BEAKER) (test nayn=998) 1 % NEUTROPHILS ABSOLUTE COUNT (BEAKER) (test zsqb=843) 3.80 K/ L 1.78-5.38 LYMPHOCYTES ABSOLUTE COUNT (BEAKER) (test fqtr=069) 1.54 K/ L 1.32-3.57 MONOCYTES ABSOLUTE COUNT (BEAKER) (test zqdv=124) 0.85 K/ L 0.30-0.82 EOSINOPHILS ABSOLUTE COUNT (BEAKER) (test wndk=791) 0.21 K/ L 0.04-0.54 BASOPHILS ABSOLUTE COUNT (BEAKER) (test cvkg=021) 0.05 K/ L 0.01-0.08 IMMATURE GRANULOCYTES-RELATIVE PERCENT (BEAKER) (test mpnx=2881) 1 % 0-1 RAD, CHEST, 1 VIEW, NON [id number] 03:57:00Reason for exam:->pulm edemaShould this be performed at the bedside?->YesFINAL REPORT Chest one view. Clinical history: pulm edema Comparison: Chest radiograph 01/22/2019 Technique: A single frontal view of the chest was obtained. Findings:There is a right PICC line with tip in the SVC. There is a left-sided AICD unchanged. There are median sternotomy wires..The cardiomediastinal contours are stable. There is a persistent small right pleural effusion with adjacent opacity which may represent pneumonia/atelectasis. There is no large pneumothorax. There is no pulmonary edema. Signed: Mekhi Carmonaeport Verified Date/Time: 01/23/2019 03:57:07 Reading Location: [facility] C013Y CT Body Reading Room -GLUCOSE [id number] 22:36:00* Test Item Value Reference Range Comments POC-GLUCOSE METER (BEAKER) (test uzgm=5726) 115 mg/dL 70-110 TESTED AT [address] [address] POCT-GLUCOSE [id number] 19:04:00* Test Item Value Reference Range Comments POC-GLUCOSE METER (BEAKER) (test xcnz=9321) 115 mg/dL 70-110 TESTED AT [address] [address] POCT-GLUCOSE [id number] 13:57:00* Test Item Value Reference Range Comments POC-GLUCOSE METER (BEAKER) (test uudj=5324) 116 mg/dL 70-110 TESTED AT [address] [address] [id number] 09:44:00* Test Item Value Reference Range Comments MAGNESIUM (BEAKER) (test joow=851) 2.4 mg/dL 1.6-2.6 Specimen slightly hemolyzed [id number] 09:44:00* Test Item Value Reference Range Comments POTASSIUM (BEAKER) (test vlrb=522) 4.3 meq/L 3.5-5.1 Specimen slightly hemolyzed BLOOD [id number] 08:00:00* Test Item Value Reference Range Comments CULTURE (BEAKER) (test hhpd=9791) No growth in 5 days BLOOD [id number] 08:00:00* Test Item Value Reference Range Comments CULTURE (BEAKER) (test dwmw=5180) No growth in 5 days POCT-GLUCOSE [id number] 07:58:00* Test Item Value Reference Range Comments POC-GLUCOSE METER (BEAKER) (test lvzd=5588) 91 mg/dL 70-110 TESTED AT [facility] [address] [facility] [address] VITAMIN B12 AND [id number] 06:24:00* Test Item Value Reference Range Comments VITAMIN B12 (BEAKER) (test nazu=757) 1201 pg/mL 213-816 FOLATE (BEAKER) (test juvx=493) 13.5 ng/mL >=7.0 RAD, CHEST, 1 VIEW, NON [id number] 06:21:00Reason for exam:->pulm edemaShould this be performed at the bedside?->YesFINAL REPORT Chest one view. Clinical history: Pulmonary edema Comparison: Chest radiograph 01/21/2019 Technique: A single frontal view of the chest was obtained. Findings: The patient is status post median sternotomy. The patient's chin partially obscures the lung apices. There is a right PICC line in satisfactory position. There is a left-sided AICD with leads unchanged. There is stable enlargement of the cardiac silhouette. There is a small right pleural effusion. There is airspace opacity in the right lung base which may represent pneumonia and/or atelectasis. There is no definite pneumothorax. There is no pulmonary edema. Signed: Mekhi Carmona MDReport Verified Date/Time: 01/22/2019 06:21:47 Reading Location: [facility] B1 C013Y CT Body Reading Room [id number] 04:02:00* Test Item Value Reference Range Comments PHOSPHORUS (BEAKER) (test cjhb=981) 2.5 mg/dL 2.3-4.7 [id number] 04:02:00* Test Item Value Reference Range Comments MAGNESIUM (BEAKER) (test brjf=042) 2.1 mg/dL 1.6-2.6 COMPREHENSIVE METABOLIC [id number] 04:02:00* Test Item Value Reference Range Comments TOTAL PROTEIN (BEAKER) (test iqsj=630) 5.8 gm/dL 6.0-8.3 ALBUMIN (BEAKER) (test eiyq=1060) 3.1 g/dL 3.5-5.0 ALKALINE PHOSPHATASE (BEAKER) (test etxd=571) 80 U/L 40-150 BILIRUBIN TOTAL (BEAKER) (test sgcb=175) 2.0 mg/dL 0.2-1.2 SODIUM (BEAKER) (test ppxl=149) 133 meq/L 136-145 POTASSIUM (BEAKER) (test mclj=439) 3.9 meq/L 3.5-5.1 CHLORIDE (BEAKER) (test aakk=413) 98 meq/L 98-107 CO2 (BEAKER) (test gfhs=598) 28 meq/L 22-29 BLOOD UREA NITROGEN (BEAKER) (test ywpm=131) 20 mg/dL 7-21 CREATININE (BEAKER) (test zyvl=460) 0.97 mg/dL 0.57-1.25 GLUCOSE RANDOM (BEAKER) (test yyla=931) 118 mg/dL 70-105 CALCIUM (BEAKER) (test ofpk=030) 8.5 mg/dL 8.4-10.2 AST (SGOT) (BEAKER) (test lhdv=768) 85 U/L 5-34 ALT (SGPT) (BEAKER) (test pyfp=614) 322 U/L 6-55 EGFR (BEAKER) (test yylc=6148) 77 mL/min/1.73 sq m ESTIMATED GFR IS NOT ACCURATE CREATININE CLEARANCE IN PREDICTING GLOMERULAR FILTRATION RATE. ESTIMATED GFR IS NOT APPLICABLE FOR DIALYSIS PATIENTS. Specimen slightly ictericCBC W/PLT COUNT & AUTO [id number] 03:17:00 * Test Item Value Reference Range Comments WHITE BLOOD CELL COUNT (BEAKER) (test tuuu=335) 6.3 K/ L 3.5-10.5 RED BLOOD CELL COUNT (BEAKER) (test grhm=205) 4.00 M/ L 4.63-6.08 HEMOGLOBIN (BEAKER) (test uubc=282) 12.0 GM/DL 13.7-17.5 HEMATOCRIT (BEAKER) (test vpdf=315) 38.4 % 40.1-51.0 MEAN CORPUSCULAR VOLUME (BEAKER) (test uqxw=837) 96.0 fL 79.0-92.2 MEAN CORPUSCULAR HEMOGLOBIN (BEAKER) (test vxja=955) 30.0 pg 25.7-32.2 MEAN CORPUSCULAR HEMOGLOBIN CONC (BEAKER) (test zlwr=493) 31.3 GM/DL 32.3-36.5 RED CELL DISTRIBUTION WIDTH (BEAKER) (test zsqy=660) 17.0 % 11.6-14.4 PLATELET COUNT (BEAKER) (test zubh=003) 154 K/CU MM 150-450 MEAN PLATELET VOLUME (BEAKER) (test zekn=855) 10.4 fL 9.4-12.4 NUCLEATED RED BLOOD CELLS (BEAKER) (test krgd=477) 0 /100 WBC 0-0 NEUTROPHILS RELATIVE PERCENT (BEAKER) (test bnjq=676) 65 % LYMPHOCYTES RELATIVE PERCENT (BEAKER) (test vmnm=773) 20 % MONOCYTES RELATIVE PERCENT (BEAKER) (test hqnc=983) 11 % EOSINOPHILS RELATIVE PERCENT (BEAKER) (test xxyr=408) 3 % BASOPHILS RELATIVE PERCENT (BEAKER) (test usez=200) 1 % NEUTROPHILS ABSOLUTE COUNT (BEAKER) (test girg=283) 4.09 K/ L 1.78-5.38 LYMPHOCYTES ABSOLUTE COUNT (BEAKER) (test itvd=050) 1.24 K/ L 1.32-3.57 MONOCYTES ABSOLUTE COUNT (BEAKER) (test tpjj=958) 0.70 K/ L 0.30-0.82 EOSINOPHILS ABSOLUTE COUNT (BEAKER) (test jqob=222) 0.19 K/ L 0.04-0.54 BASOPHILS ABSOLUTE COUNT (BEAKER) (test lynm=543) 0.04 K/ L 0.01-0.08 IMMATURE GRANULOCYTES-RELATIVE PERCENT (BEAKER) (test wyuh=2227) 1 % 0-1 OXYGEN SATURATION, [id number] 03:07:00* Test Item Value Reference Range Comments O2 SATURATION (MEASURED) (BEAKER) (test hdfu=8458) 59.9 % PICC linePOCT-GLUCOSE [id number] 21:21:00* Test Item Value Reference Range Comments POC-GLUCOSE METER (BEAKER) (test jglt=0801) 140 mg/dL 70-110 TESTED AT [facility] [address] [facility] [address] LACTIC ACID, [id number] 21:18:00* Test Item Value Reference Range Comments LACTATE BLOOD VENOUS (2) (BEAKER) (test nhop=8470) 2.0 mmol/L 0.5-2.2 Specimen slightly hemolyzed LACTIC ACID, [id number] 17:39:00* Test Item Value Reference Range Comments LACTATE BLOOD VENOUS (2) (BEAKER) (test jqzz=0601) 5.4 mmol/L 0.5-2.2 OXYGEN SATURATION, [id number] 14:00:00* Test Item Value Reference Range Comments O2 SATURATION (MEASURED) (BEAKER) (test vftq=5032) 61.8 % PICC linePOCT-GLUCOSE [id number] 12:30:00* Test Item Value Reference Range Comments POC-GLUCOSE METER (BEAKER) (test hdnh=3700) 155 mg/dL 70-110 TESTED AT [place] [id number] [facility] [address] [id number] 11:36:00* Test Item Value Reference Range Comments POTASSIUM (BEAKER) (test reuw=859) 4.1 meq/L 3.5-5.1 [id number] 11:36:00* Test Item Value Reference Range Comments MAGNESIUM (BEAKER) (test rokq=483) 2.2 mg/dL 1.6-2.6 POCT-GLUCOSE [id number] 07:45:00* Test Item Value Reference Range Comments POC-GLUCOSE METER (BEAKER) (test jqla=8201) 137 mg/dL 70-110 TESTED AT [place] [id number] [facility] [address] [id number] 04:51:00* Test Item Value Reference Range Comments PHOSPHORUS (BEAKER) (test kkvx=565) 2.7 mg/dL 2.3-4.7 [id number] 04:51:00* Test Item Value Reference Range Comments MAGNESIUM (BEAKER) (test gzkb=473) 2.0 mg/dL 1.6-2.6 COMPREHENSIVE METABOLIC [id number] 04:51:00* Test Item Value Reference Range Comments TOTAL PROTEIN (BEAKER) (test pbsi=431) 6.0 gm/dL 6.0-8.3 ALBUMIN (BEAKER) (test pkhz=8585) 3.1 g/dL 3.5-5.0 ALKALINE PHOSPHATASE (BEAKER) (test cixv=022) 81 U/L 40-150 BILIRUBIN TOTAL (BEAKER) (test mcua=601) 3.0 mg/dL 0.2-1.2 SODIUM (BEAKER) (test iwpg=847) 135 meq/L 136-145 POTASSIUM (BEAKER) (test qagv=425) 3.6 meq/L 3.5-5.1 CHLORIDE (BEAKER) (test pwzk=188) 99 meq/L 98-107 CO2 (BEAKER) (test bcmj=541) 28 meq/L 22-29 BLOOD UREA NITROGEN (BEAKER) (test ybnj=971) 19 mg/dL 7-21 CREATININE (BEAKER) (test xdyg=671) 1.00 mg/dL 0.57-1.25 GLUCOSE RANDOM (BEAKER) (test vceq=310) 92 mg/dL 70-105 CALCIUM (BEAKER) (test qrtx=405) 8.5 mg/dL 8.4-10.2 AST (SGOT) (BEAKER) (test suee=040) 139 U/L 5-34 ALT (SGPT) (BEAKER) (test bpkh=169) 439 U/L 6-55 EGFR (BEAKER) (test fsex=2817) 74 mL/min/1.73 sq m ESTIMATED GFR IS NOT ACCURATE CREATININE CLEARANCE IN PREDICTING GLOMERULAR FILTRATION RATE. ESTIMATED GFR IS NOT APPLICABLE FOR DIALYSIS PATIENTS. Specimen slightly ictericRAD, CHEST, 1 VIEW, NON [id number] 04:51:00Reason for exam:->pulm edemaShould this be performed at the bedside?->YesFINAL REPORT CLINICAL INDICATION: Pulmonary edema Comparison: 01/20/2019 at 2022 hours The cardiomediastinal contours are stable. Central pulmonary vascular congestion and bilateral parenchymal and right pleural opaci ties are unchanged. There is no pneumothorax. A right IJ PA catheter has been re moved. A right PICC line remains in place. Signed: Jose Fullerort Verifi ed Date/Time: 01/21/2019 04:51:02 Reading Location: [address] 04:5 1 AM PROTHROMBIN [id number] 04:40:00* Test Item Value Reference Range Comments PROTIME (BEAKER) (test kbzn=290) 18.5 seconds 11.7-14.7 INR (BEAKER) (test wcia=757) 1.5 <=5.9 RECOMMENDED COUMADIN/WARFARIN INR THERAPY RANGESSTANDARD DOSE: 2.0 - 3.0 Inclu sharlene: PROPHYLAXIS for venous thrombosis, systemic embolization; TREATMENT for ailyn ous thrombosis and/or pulmonary embolus.HIGH RISK: Target INR is 2.5-3.5 for pat ients with mechanical heart valves.CBC W/PLT COUNT & AUTO [id number] 04:26:00* Test Item Value Reference Range Comments WHITE BLOOD CELL COUNT (BEAKER) (test fnal=459) 6.1 K/ L 3.5-10.5 RED BLOOD CELL COUNT (BEAKER) (test invn=252) 3.84 M/ L 4.63-6.08 HEMOGLOBIN (BEAKER) (test qmmu=310) 11.6 GM/DL 13.7-17.5 HEMATOCRIT (BEAKER) (test ieeh=008) 36.7 % 40.1-51.0 MEAN CORPUSCULAR VOLUME (BEAKER) (test xtiv=852) 95.6 fL 79.0-92.2 MEAN CORPUSCULAR HEMOGLOBIN (BEAKER) (test xqum=516) 30.2 pg 25.7-32.2 MEAN CORPUSCULAR HEMOGLOBIN CONC (BEAKER) (test qiak=323) 31.6 GM/DL 32.3-36.5 RED CELL DISTRIBUTION WIDTH (BEAKER) (test hqhd=181) 16.9 % 11.6-14.4 PLATELET COUNT (BEAKER) (test fmys=624) 119 K/CU MM 150-450 MEAN PLATELET VOLUME (BEAKER) (test fyjc=627) 10.1 fL 9.4-12.4 NUCLEATED RED BLOOD CELLS (BEAKER) (test wiqq=760) 0 /100 WBC 0-0 NEUTROPHILS RELATIVE PERCENT (BEAKER) (test vbwe=280) 68 % LYMPHOCYTES RELATIVE PERCENT (BEAKER) (test ihuv=444) 17 % MONOCYTES RELATIVE PERCENT (BEAKER) (test twht=859) 11 % EOSINOPHILS RELATIVE PERCENT (BEAKER) (test hvhg=380) 3 % BASOPHILS RELATIVE PERCENT (BEAKER) (test ayae=662) 1 % NEUTROPHILS ABSOLUTE COUNT (BEAKER) (test kswn=465) 4.18 K/ L 1.78-5.38 LYMPHOCYTES ABSOLUTE COUNT (BEAKER) (test anqk=155) 1.02 K/ L 1.32-3.57 MONOCYTES ABSOLUTE COUNT (BEAKER) (test yrjg=802) 0.70 K/ L 0.30-0.82 EOSINOPHILS ABSOLUTE COUNT (BEAKER) (test niiz=868) 0.16 K/ L 0.04-0.54 BASOPHILS ABSOLUTE COUNT (BEAKER) (test ipcn=316) 0.03 K/ L 0.01-0.08 IMMATURE GRANULOCYTES-RELATIVE PERCENT (BEAKER) (test dcsv=1232) 1 % 0-1 POCT-GLUCOSE [id number] 23:01:00* Test Item Value Reference Range Comments POC-GLUCOSE METER (BEAKER) (test fcma=6288) 138 mg/dL 70-110 TESTED AT [place] [id number] [facility] [address] RAD, CHEST, 1 VIEW, NON [id number] 21:03:00Reason for exam:->PICC LINE TIP VERIFICATIONShould this be performed at the bedside?->YesFINAL REPORT INDICATION: PICC LINE TIP VERIFICATION COMPARISON:January 20 at 5:06 AM TECHNIQUE: Chest radiograph, single view, portable technique. FINDINGS / IMPRESSION: Interval placement of a right PICC line which probably terminates in the cavoatrial junction, position inexact because of overlying and previously placed right internal jugular line and multilead left subclavian ICD. Heart shadow is prominent and there is pulmonary venous congestion and mild edema as before. No pneumothorax or pleural effusion is demonstrated. Heart shadow not appreciably enlarged. Signed: Flip Gloriaeport Verified Date/Time: 01/20/2019 21:03:17 Reading Location: [address] Consult Reading Room -GLUCOSE [id number] 17:40:00* Test Item Value Reference Range Comments POC-GLUCOSE METER (BEAKER) (test uvwm=7297) 111 mg/dL 70-110 TESTED AT [address] [address] PET, CARDIAC PET, [id number] 16:11:00Reason for exam:->ischemic cardiomyopathy.FINAL REPORT PROCEDURE: MYOCARDIAL METABOLISM PET IMAGING with MYOCARDIAL PERFUSION PET IMAGING (Rest-Only)CPT CODE: 39992, 29847 INDICATION: ischemic cardiomyopathy, assess myocardial viability CARDIOVASCULAR PROFILE:CAD History: Known CAD, ACB, ischemic cardiomyopathy, heart failure with reduced ejection fractionSymptoms: Shortness of breathRisk Factors: CAD, CVABMI: 20 IMAGING PROTOCOL:Limited low-dose CT imaging was performed for attenuation correction. 40.1 mCi of Rb-82 chloride was injected intravenously at rest, and gated PET images were obtained. Then, dextrose and insulin were administered intravenously per protocol, and 10.8 mCi of F-18 FDG was injected intravenously at rest. Limited low-dose CT imaging was repeated for attenuation correction, and PET images were obtained. REST FINDINGS:Perfusion: There is a marked severity perfusion defect of the basal to mid inferior and inferolateral LV There is a moderate severity perfusion perfusion defect of the mid to apical anterior, apical, and apical septal segments.Metabolism: There is absence of FDG uptake in the mid and basal inferior and inferolateral LV. The remaining segments have lesser decrease in FDG uptake which corresponds to perfusion.Wall Motion: Severe basal to mid infer ior and inferolateral hypokinesis, moderate hypokinesis in the remaining segment s (LVEF 28%).LV Volume: Increased.RV Volume: Normal. IMPRESSION:1. Abnormal stud y.2. Abnormal myocardial perfusion. There is a large size, marked severity perfu juancarlos abnormality in the inferior and inferolateral LV. There is a large size, mo derate severity perfusion abnormality in the mid to apical anterior and anterola teral LV. Abnormal myocardial metabolism. There is a large size, marked severity abnormality of glucose metabolism in the mid to basal inferior and inferolateral LV which is nonviable. The remaining segments, while impaired, appear viable.3. Markedly decreased resting LVEF of 28%. Wall motion and modalities as noted ab ove4. Normal extracardiac tracer distribution.5. There is no prior study for com donnon. Signed: Mandeep Pichardo MDReport Verified Date/Time: 01/20/2019 16:11:04 Reading Location: [address] Reading Room [id number] 14:53:00* Test Item Value Reference Range Comments POTASSIUM (BEAKER) (test igrs=456) 3.8 meq/L 3.5-5.1 [id number] 14:53:00* Test Item Value Reference Range Comments MAGNESIUM (BEAKER) (test bpry=992) 2.2 mg/dL 1.6-2.6 POCT-GLUCOSE [id number] 13:15:00* Test Item Value Reference Range Comments POC-GLUCOSE METER (BEAKER) (test niui=9305) 79 mg/dL 70-110 TESTED AT [facility] [address] [facility] [address] POCT-GLUCOSE [id number] 11:34:00* Test Item Value Reference Range Comments POC-GLUCOSE METER (BEAKER) (test rlwd=9879) 214 mg/dL 70-110 TESTED AT [facility] [address] [facility] [address] POCT-GLUCOSE [id number] 10:01:00* Test Item Value Reference Range Comments POC-GLUCOSE METER (BEAKER) (test ezru=3629) 100 mg/dL 70-110 TESTED AT [facility] [address] [facility] [address] RAD, CHEST, 1 VIEW, NON [id number] 08:14:00Reason for exam:->pulm edema Should this be performed at the bedside?->YesFINAL REPORT Follow up Chest radiograph Clinical History: Pulmonary edemaComparison: January 19, 2019Views: One Chest x-ray:The cardiac and mediastinal silhouettes are unchanged. There is no evidence of a pneumothorax. There is evidence of a tiny right pleural effusion. There is no evidence of overt cardiac failure. There is evidence of a right lower lobe focal parenchymal opacity. Left subclavian pacemaker with three leads and a right internal jugular [place]-Chris catheter is noted. The [place]-Chris catheter has been advanced in the right ventricular outflow tract. Sternotomy changes are noted. Impression:Interval advancement of a [place]-Chris catheter with its distal tip likely in the distal right ventricular outflow tract or main pulmonary artery.Increased airspace opacification in the right lower lung zone which may represent worsening pul monary edema or superimposed inflammatory process Signed: Round, Beatriz MDReport V erified Date/Time: 01/20/2019 08:14:04 Reading Location: [facility] Reading Room 0 8:14 AM POCT-GLUCOSE [id number] 08:01:00* Test Item Value Reference Range Comments POC-GLUCOSE METER (BEAKER) (test mqap=1353) 96 mg/dL 70-110 TESTED AT [facility] [address] [facility] [address] OXYGEN SATURATION, [id number] 04:41:00* Test Item Value Reference Range Comments O2 SATURATION (MEASURED) (BEAKER) (test qsqp=3401) 65.2 % From PA catheter, distal portCOMPREHENSIVE METABOLIC [id number] 04:13:00* Test Item Value Reference Range Comments TOTAL PROTEIN (BEAKER) (test suki=442) 5.9 gm/dL 6.0-8.3 ALBUMIN (BEAKER) (test yqhx=5241) 3.2 g/dL 3.5-5.0 ALKALINE PHOSPHATASE (BEAKER) (test sqyp=959) 81 U/L 40-150 BILIRUBIN TOTAL (BEAKER) (test lidf=232) 3.1 mg/dL 0.2-1.2 SODIUM (BEAKER) (test rjof=313) 134 meq/L 136-145 POTASSIUM (BEAKER) (test ushl=256) 3.9 meq/L 3.5-5.1 CHLORIDE (BEAKER) (test ugmm=640) 97 meq/L 98-107 CO2 (BEAKER) (test veun=384) 30 meq/L 22-29 BLOOD UREA NITROGEN (BEAKER) (test bxva=880) 15 mg/dL 7-21 CREATININE (BEAKER) (test qbzz=676) 0.99 mg/dL 0.57-1.25 GLUCOSE RANDOM (BEAKER) (test yruc=633) 105 mg/dL 70-105 CALCIUM (BEAKER) (test gfdr=341) 8.5 mg/dL 8.4-10.2 AST (SGOT) (BEAKER) (test uuse=222) 287 U/L 5-34 ALT (SGPT) (BEAKER) (test ztda=353) 674 U/L 6-55 EGFR (BEAKER) (test yuix=1025) 75 mL/min/1.73 sq m ESTIMATED GFR IS NOT ACCURATE CREATININE CLEARANCE IN PREDICTING GLOMERULAR FILTRATION RATE. ESTIMATED GFR IS NOT APPLICABLE FOR DIALYSIS PATIENTS. Specimen slightly [id number] 04:10:00* Test Item Value Reference Range Comments PHOSPHORUS (BEAKER) (test wpjb=913) 3.3 mg/dL 2.3-4.7 [id number] 04:10:00* Test Item Value Reference Range Comments MAGNESIUM (BEAKER) (test lykz=313) 2.0 mg/dL 1.6-2.6 BILIRUBIN, [id number] 04:10:00* Test Item Value Reference Range Comments BILIRUBIN DIRECT (BEAKER) (test kqjt=316) 1.6 mg/dL 0.1-0.5 PROTHROMBIN [id number] 04:07:00* Test Item Value Reference Range Comments PROTIME (BEAKER) (test bpns=988) 19.1 seconds 11.7-14.7 INR (BEAKER) (test tkfd=537) 1.6 <=5.9 RECOMMENDED COUMADIN/WARFARIN INR THERAPY RANGESSTANDARD DOSE: 2.0 - 3.0 Inclu sharlene: PROPHYLAXIS for venous thrombosis, systemic embolization; TREATMENT for ailyn ous thrombosis and/or pulmonary embolus.HIGH RISK: Target INR is 2.5-3.5 for pat ients with mechanical heart valves.CBC W/PLT COUNT & AUTO [id number] 03:52:00* Test Item Value Reference Range Comments WHITE BLOOD CELL COUNT (BEAKER) (test qamq=716) 6.2 K/ L 3.5-10.5 RED BLOOD CELL COUNT (BEAKER) (test cfhi=355) 3.67 M/ L 4.63-6.08 HEMOGLOBIN (BEAKER) (test pmbm=228) 11.0 GM/DL 13.7-17.5 HEMATOCRIT (BEAKER) (test sxze=879) 35.7 % 40.1-51.0 MEAN CORPUSCULAR VOLUME (BEAKER) (test pado=025) 97.3 fL 79.0-92.2 MEAN CORPUSCULAR HEMOGLOBIN (BEAKER) (test tksc=511) 30.0 pg 25.7-32.2 MEAN CORPUSCULAR HEMOGLOBIN CONC (BEAKER) (test sooj=640) 30.8 GM/DL 32.3-36.5 RED CELL DISTRIBUTION WIDTH (BEAKER) (test pygs=062) 17.3 % 11.6-14.4 PLATELET COUNT (BEAKER) (test ioro=131) 126 K/CU MM 150-450 MEAN PLATELET VOLUME (BEAKER) (test gmao=892) 10.5 fL 9.4-12.4 NUCLEATED RED BLOOD CELLS (BEAKER) (test uvzw=061) 0 /100 WBC 0-0 NEUTROPHILS RELATIVE PERCENT (BEAKER) (test vfdu=167) 72 % LYMPHOCYTES RELATIVE PERCENT (BEAKER) (test ocmu=933) 14 % MONOCYTES RELATIVE PERCENT (BEAKER) (test pjwk=787) 10 % EOSINOPHILS RELATIVE PERCENT (BEAKER) (test fpfg=318) 3 % BASOPHILS RELATIVE PERCENT (BEAKER) (test seeo=627) 1 % NEUTROPHILS ABSOLUTE COUNT (BEAKER) (test pqem=800) 4.44 K/ L 1.78-5.38 LYMPHOCYTES ABSOLUTE COUNT (BEAKER) (test obhe=049) 0.88 K/ L 1.32-3.57 MONOCYTES ABSOLUTE COUNT (BEAKER) (test vfky=376) 0.63 K/ L 0.30-0.82 EOSINOPHILS ABSOLUTE COUNT (BEAKER) (test axpi=904) 0.18 K/ L 0.04-0.54 BASOPHILS ABSOLUTE COUNT (BEAKER) (test serm=540) 0.03 K/ L 0.01-0.08 IMMATURE GRANULOCYTES-RELATIVE PERCENT (BEAKER) (test bsrr=8260) 1 % 0-1 POCT-GLUCOSE [id number] 22:04:00* Test Item Value Reference Range Comments POC-GLUCOSE METER (BEAKER) (test igmn=2743) 121 mg/dL 70-110 TESTED AT [facility] [address] [facility] [address] POCT-GLUCOSE [id number] 18:33:00* Test Item Value Reference Range Comments POC-GLUCOSE METER (BEAKER) (test gwyp=3605) 131 mg/dL 70-110 TESTED AT [facility] [address] [facility] [address] [id number] 15:37:00* Test Item Value Reference Range Comments POTASSIUM (BEAKER) (test ktjt=299) 3.9 meq/L 3.5-5.1 [id number] 15:37:00* Test Item Value Reference Range Comments MAGNESIUM (BEAKER) (test qtpv=584) 2.5 mg/dL 1.6-2.6 POCT-GLUCOSE [id number] 15:35:00* Test Item Value Reference Range Comments POC-GLUCOSE METER (BEAKER) (test vtzk=2464) 180 mg/dL 70-110 TESTED AT [facility] [address] [facility] [address] RAD, CHEST, 1 VIEW, NON [id number] 13:22:00Reason for exam:->pulm edemaShould this be performed at the bedside?->YesFINAL REPORT TECHNIQUE: Frontal chest radiograph dated 01/19/2019. CLINICAL HISTORY: Pulm edema COMPARISON STUDY: Chest radiograph dated 01/18/2019 IMPRESSION:Life support lines and devices are unchanged. Right pleural effusion has decreased in size. Airspace opacity in the right lower lobe remains the same. No pneumothorax. Cardiomediastinal silhouette is stable in size. Interstitial pulmonary edema is present. Midline sternotomy wires are intact and well aligned. Degenerative changes are seen in the spine. Signed: Nimco Meek MDReport Verified Date/Time: 01/19/2019 13:22:51 Reading Location: [facility] iology Reading Room Electronically signed by: NIMCO MEEK MD on 0 01/19/2019 01:22 PM MRSA [id number] 08:52:00* Test Item Value Reference Range Comments CULTURE (BEAKER) (test gufx=6353) No MRSA isolated OXYGEN SATURATION, [id number] 06:38:00* Test Item Value Reference Range Comments O2 SATURATION (MEASURED) (BEAKER) (test bkne=0103) 59.0 % From PA catheter, distal [id number] 06:14:00* Test Item Value Reference Range Comments PHOSPHORUS (BEAKER) (test wjos=078) 2.2 mg/dL 2.3-4.7 [id number] 06:14:00* Test Item Value Reference Range Comments MAGNESIUM (BEAKER) (test gcsm=374) 2.0 mg/dL 1.6-2.6 COMPREHENSIVE METABOLIC [id number] 06:14:00* Test Item Value Reference Range Comments TOTAL PROTEIN (BEAKER) (test hdji=765) 5.5 gm/dL 6.0-8.3 ALBUMIN (BEAKER) (test mmny=7736) 3.0 g/dL 3.5-5.0 ALKALINE PHOSPHATASE (BEAKER) (test ymcs=753) 78 U/L 40-150 BILIRUBIN TOTAL (BEAKER) (test lbgi=464) 3.1 mg/dL 0.2-1.2 SODIUM (BEAKER) (test sopb=603) 142 meq/L 136-145 POTASSIUM (BEAKER) (test nacn=213) 2.9 meq/L 3.5-5.1 CHLORIDE (BEAKER) (test twag=722) 105 meq/L 98-107 CO2 (BEAKER) (test rbup=394) 28 meq/L 22-29 BLOOD UREA NITROGEN (BEAKER) (test witv=318) 15 mg/dL 7-21 CREATININE (BEAKER) (test gxvy=748) 0.83 mg/dL 0.57-1.25 GLUCOSE RANDOM (BEAKER) (test tnca=741) 96 mg/dL 70-105 CALCIUM (BEAKER) (test tkje=316) 8.0 mg/dL 8.4-10.2 AST (SGOT) (BEAKER) (test fmza=406) 487 U/L 5-34 ALT (SGPT) (BEAKER) (test iqmm=953) 819 U/L 6-55 EGFR (BEAKER) (test yfaj=6829) 92 mL/min/1.73 sq m ESTIMATED GFR IS NOT ACCURATE CREATININE CLEARANCE IN PREDICTING GLOMERULAR FILTRATION RATE. ESTIMATED GFR IS NOT APPLICABLE FOR DIALYSIS PATIENTS. Specimen slightly ictericBILIRUBIN, [id number] 06:14:00* Test Item Value Reference Range Comments BILIRUBIN DIRECT (BEAKER) (test cnug=904) 1.6 mg/dL 0.1-0.5 PROTHROMBIN [id number] 06:13:00* Test Item Value Reference Range Comments PROTIME (BEAKER) (test wvey=848) 18.5 seconds 11.7-14.7 INR (BEAKER) (test dsfs=631) 1.5 <=5.9 RECOMMENDED COUMADIN/WARFARIN INR THERAPY RANGESSTANDARD DOSE: 2.0 - 3.0 Inclu sharlene: PROPHYLAXIS for venous thrombosis, systemic embolization; TREATMENT for ailyn ous thrombosis and/or pulmonary embolus.HIGH RISK: Target INR is 2.5-3.5 for pat ients with mechanical heart valves.POCT-GLUCOSE [id number] 05:54:00* Test Item Value Reference Range Comments POC-GLUCOSE METER (BEAKER) (test pizh=7232) 154 mg/dL 70-110 TESTED AT [facility] [address] [facility] [address] CBC W/PLT COUNT & AUTO [id number] 05:51:00* Test Item Value Reference Range Comments WHITE BLOOD CELL COUNT (BEAKER) (test mzmv=093) 6.4 K/ L 3.5-10.5 RED BLOOD CELL COUNT (BEAKER) (test lvmg=116) 3.49 M/ L 4.63-6.08 HEMOGLOBIN (BEAKER) (test vvpd=356) 10.6 GM/DL 13.7-17.5 HEMATOCRIT (BEAKER) (test dwee=314) 34.1 % 40.1-51.0 MEAN CORPUSCULAR VOLUME (BEAKER) (test zmdb=536) 97.7 fL 79.0-92.2 MEAN CORPUSCULAR HEMOGLOBIN (BEAKER) (test czum=101) 30.4 pg 25.7-32.2 MEAN CORPUSCULAR HEMOGLOBIN CONC (BEAKER) (test anrx=667) 31.1 GM/DL 32.3-36.5 RED CELL DISTRIBUTION WIDTH (BEAKER) (test wthf=472) 17.9 % 11.6-14.4 PLATELET COUNT (BEAKER) (test oyoj=467) 110 K/CU MM 150-450 MEAN PLATELET VOLUME (BEAKER) (test ypid=759) 10.2 fL 9.4-12.4 NUCLEATED RED BLOOD CELLS (BEAKER) (test dfth=186) 0 /100 WBC 0-0 NEUTROPHILS RELATIVE PERCENT (BEAKER) (test feej=426) 72 % LYMPHOCYTES RELATIVE PERCENT (BEAKER) (test myrv=496) 16 % MONOCYTES RELATIVE PERCENT (BEAKER) (test wqel=883) 9 % EOSINOPHILS RELATIVE PERCENT (BEAKER) (test mnoi=454) 2 % BASOPHILS RELATIVE PERCENT (BEAKER) (test zptt=324) 1 % NEUTROPHILS ABSOLUTE COUNT (BEAKER) (test albm=051) 4.58 K/ L 1.78-5.38 LYMPHOCYTES ABSOLUTE COUNT (BEAKER) (test uijf=507) 1.00 K/ L 1.32-3.57 MONOCYTES ABSOLUTE COUNT (BEAKER) (test fthm=433) 0.58 K/ L 0.30-0.82 EOSINOPHILS ABSOLUTE COUNT (BEAKER) (test foez=549) 0.15 K/ L 0.04-0.54 BASOPHILS ABSOLUTE COUNT (BEAKER) (test fkaz=807) 0.03 K/ L 0.01-0.08 IMMATURE GRANULOCYTES-RELATIVE PERCENT (BEAKER) (test pyut=5947) 1 % 0-1 POCT-GLUCOSE [id number] 21:48:00* Test Item Value Reference Range Comments POC-GLUCOSE METER (BEAKER) (test kvwn=3941) 171 mg/dL 70-110 TESTED AT [facility] [address] [facility] [address] POCT-GLUCOSE [id number] 18:10:00* Test Item Value Reference Range Comments POC-GLUCOSE METER (BEAKER) (test rkhu=6715) 118 mg/dL 70-110 TESTED AT [place] [id number] [facility] [address] OXYGEN SATURATION, [id number] 15:12:00* Test Item Value Reference Range Comments O2 SATURATION (MEASURED) (BEAKER) (test uwwx=5270) 52.7 % RAD, CHEST, 1 VIEW, NON [id number] 14:41:00Reason for exam:->PA cathShould this be performed at the bedside?->YesFINAL REPORT INDICATION: PA cath COMPARISON:January 17 at 5:58 PM TECHNIQUE: Chest radiograph, single view, portable technique. FINDINGS / IMPRESSION: PA catheter has been repositioned with the tip projecting over the main pulmonary artery. Enlarged heart shadow and central pulmonary venous congestion with multilead left subclavian ICD and layering right pleural effusion. No pneumothorax demonstrated. Signed: Flip Gloriaeport Verified Date/Time: 01/18/2019 14:41:24 Reading Location: [address] Consult Reading Room TINE KINASE (CK)2019-01-18 14:22:00* Test Item Value Reference Range Comments CREATINE KINASE TOTAL (BEAKER) (test sbvc=291) 764 U/L 29-200 [id number] 14:17:00* Test Item Value Reference Range Comments AMMONIA (BEAKER) (test ebfx=357) 56 mol/L 18-72 Specimen moderately hemolyzed LACTIC ACID, [id number] 14:17:00* Test Item Value Reference Range Comments LACTATE BLOOD VENOUS (2) (BEAKER) (test iqts=8183) 1.5 mmol/L 0.5-2.2 Specimen slightly hemolyzed U/S, ABDOMINAL, [id number] 10:18:00DOPPLERSReason for exam:-> TRANSAMINITISReason for exam:->LIVERFINAL REPORT HISTORY : Transaminitis COMPARISON : None. COMMENT :Complete ultrasound examination of the abdomen with color [...] present. Small pleural effusions are noted bilaterally. Vascular:The main portal vein is patent with antegrade flow and diameter of 1.2 cm, within normal limits. Peak systolic velocity is 36.97 m/s. Right and left portal veins are patent with antegrade flow. The proper h epatic artery is patent with resistive index of 0.6. The right left hepatic oscar gissell are patent with resistive index of 0.6 bilaterally. The IVC is patent and u nremarkable. The middle, right, and left hepatic veins are patent. The splenic a rtery and vein are patent. There is aneurysmal dilatation of the mid abdominal a rocco measuring up to 4.4 cm in maximal AP diameter. The proximal and distal abdo zenobia aorta is normal in caliber. The main renal artery and veins are patent tiara aterally. Impression: 1. Mildly increased hepatic echogenicity which can be see n in the setting of mild hepatic steatosis. 2. Trace perihepatic ascites and sma ll bilateral pleural effusions. 3. 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 Follow-up examination is recommended every 12 mo nths. Additionally, vascular surgery consultation is recommended. 4. Otherwise, unremarkable Doppler evaluation with patent portal venous system. Signed: Roland Carlisle i MDReport Verified Date/Time: 01/18/2019 10:18:51 Reading Location: [address] Ultrasound Reading Room U/S, DUPLEX, [id number] 10:18:00Reason for exam:->evaluate portal vasculatureFINAL REPORT HISTORY : Transaminitis COMPARISON : None. COMMENT :Complete ultrasound examination of the abdomen with color [...] present. Small pleural effusions are noted bilaterally. Vascular:The main portal vein is patent with antegrade flow and diameter of 1.2 cm, within normal limits. Peak systolic velocity is 36.97 m/s. Right and left portal veins are patent with antegrade flow. The proper hepatic artery is patent with resistive index of 0.6. The right left hepatic arteries are patent with resistive index of 0.6 bilaterally. The IVC is patent and u nremarkable. The middle, right, and left hepatic veins are patent. The splenic a rtery and vein are patent. There is aneurysmal dilatation of the mid abdominal a rocco measuring up to 4.4 cm in maximal AP diameter. The proximal and distal abdo zenobia aorta is normal in caliber. The main renal artery and veins are patent tiara aterally. Impression: 1. Mildly increased hepatic echogenicity which can be see n in the setting of mild hepatic steatosis. 2. Trace perihepatic ascites and sma ll bilateral pleural effusions. 3. 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 Follow-up examination is recommended every 12 mo nths. Additionally, vascular surgery consultation is recommended. 4. Otherwise, unremarkable Doppler evaluation with patent portal venous system. Signed: Roland Carlisle iort Verified Date/Time: 01/18/2019 10:18:51 Reading Location: [address] Ultrasound Reading Room -NUCLEAR ANTIBODY (GELY)2019-01-18 09:42:00* Test Item Value Reference Range Comments ANTI-NUCLEAR ANTIBODY (GELY) (BEAKER) (test zgnj=125) Negative Negative Test performed by IFA method.Test performed by IFA method.POCT-GLUCOSE METER 2019-01-18 08:01:00* Test Item Value Reference Range Comments POC-GLUCOSE METER (BEAKER) (test ezsu=8910) 116 mg/dL 70-110 TESTED AT [facility] [address] [facility] [address] COMPREHENSIVE METABOLIC [id number] 03:46:00* Test Item Value Reference Range Comments TOTAL PROTEIN (BEAKER) (test jcsd=613) 5.7 gm/dL 6.0-8.3 Specimen slightly hemolyzed ALBUMIN (BEAKER) (test uhvw=6882) 3.1 g/dL 3.5-5.0 Specimen slightly hemolyzed ALKALINE PHOSPHATASE (BEAKER) (test ockn=603) 79 U/L 40-150 BILIRUBIN TOTAL (BEAKER) (test bigq=643) 2.6 mg/dL 0.2-1.2 Specimen slightly hemolyzed SODIUM (BEAKER) (test cmoc=008) 145 meq/L 136-145 POTASSIUM (BEAKER) (test vica=665) 3.3 meq/L 3.5-5.1 Specimen slightly hemolyzed CHLORIDE (BEAKER) (test jvpt=715) 108 meq/L 98-107 CO2 (BEAKER) (test ibmy=877) 29 meq/L 22-29 BLOOD UREA NITROGEN (BEAKER) (test ayhu=930) 22 mg/dL 7-21 CREATININE (BEAKER) (test ldbh=158) 1.06 mg/dL 0.57-1.25 Specimen slightly hemolyzed GLUCOSE RANDOM (BEAKER) (test uzyp=890) 95 mg/dL 70-105 CALCIUM (BEAKER) (test kqbd=367) 8.2 mg/dL 8.4-10.2 AST (SGOT) (BEAKER) (test ybmp=456) 853 U/L 5-34 Specimen slightly hemolyzed ALT (SGPT) (BEAKER) (test rugz=497) 1071 U/L 6-55 Specimen slightly hemolyzed EGFR (BEAKER) (test kbog=7104) 69 mL/min/1.73 sq m ESTIMATED GFR IS NOT ACCURATE CREATININE CLEARANCE IN PREDICTING GLOMERULAR FILTRATION RATE. ESTIMATED GFR IS NOT APPLICABLE FOR DIALYSIS PATIENTS. Specimen slightly ictericBILIRUBIN, [id number] 03:46:00* Test Item Value Reference Range Comments BILIRUBIN DIRECT (BEAKER) (test wqsr=799) 1.4 mg/dL 0.1-0.5 Specimen slightly hemolyzed [id number] 03:45:00* Test Item Value Reference Range Comments MAGNESIUM (BEAKER) (test ovnw=917) 2.1 mg/dL 1.6-2.6 Specimen slightly hemolyzed [id number] 03:45:00* Test Item Value Reference Range Comments PHOSPHORUS (BEAKER) (test icep=922) 2.0 mg/dL 2.3-4.7 Specimen slightly hemolyzed CBC W/PLT COUNT & AUTO [id number] 03:30:00* Test Item Value Reference Range Comments WHITE BLOOD CELL COUNT (BEAKER) (test ksgk=376) 7.6 K/ L 3.5-10.5 RED BLOOD CELL COUNT (BEAKER) (test biyq=059) 3.35 M/ L 4.63-6.08 HEMOGLOBIN (BEAKER) (test cvcy=453) 10.0 GM/DL 13.7-17.5 HEMATOCRIT (BEAKER) (test vlaw=682) 33.2 % 40.1-51.0 MEAN CORPUSCULAR VOLUME (BEAKER) (test zxix=400) 99.1 fL 79.0-92.2 MEAN CORPUSCULAR HEMOGLOBIN (BEAKER) (test lcmf=390) 29.9 pg 25.7-32.2 MEAN CORPUSCULAR HEMOGLOBIN CONC (BEAKER) (test tbor=392) 30.1 GM/DL 32.3-36.5 RED CELL DISTRIBUTION WIDTH (BEAKER) (test dzat=700) 17.9 % 11.6-14.4 PLATELET COUNT (BEAKER) (test xsut=190) 124 K/CU MM 150-450 MEAN PLATELET VOLUME (BEAKER) (test oiil=843) 11.0 fL 9.4-12.4 NUCLEATED RED BLOOD CELLS (BEAKER) (test aqmk=408) 0 /100 WBC 0-0 NEUTROPHILS RELATIVE PERCENT (BEAKER) (test zfmp=039) 75 % LYMPHOCYTES RELATIVE PERCENT (BEAKER) (test cdpy=857) 15 % MONOCYTES RELATIVE PERCENT (BEAKER) (test bmho=057) 8 % EOSINOPHILS RELATIVE PERCENT (BEAKER) (test ugeg=081) 1 % BASOPHILS RELATIVE PERCENT (BEAKER) (test wpze=275) 0 % NEUTROPHILS ABSOLUTE COUNT (BEAKER) (test ytga=293) 5.72 K/ L 1.78-5.38 LYMPHOCYTES ABSOLUTE COUNT (BEAKER) (test fxhi=223) 1.16 K/ L 1.32-3.57 MONOCYTES ABSOLUTE COUNT (BEAKER) (test poun=323) 0.61 K/ L 0.30-0.82 EOSINOPHILS ABSOLUTE COUNT (BEAKER) (test lhsm=579) 0.09 K/ L 0.04-0.54 BASOPHILS ABSOLUTE COUNT (BEAKER) (test rywu=841) 0.01 K/ L 0.01-0.08 IMMATURE GRANULOCYTES-RELATIVE PERCENT (BEAKER) (test xtvt=4327) 0 % 0-1 POCT-GLUCOSE [id number] 22:17:00* Test Item Value Reference Range Comments POC-GLUCOSE METER (BEAKER) (test aijt=2418) 156 mg/dL 70-110 TESTED AT [facility] [address] [facility] [address] RAD, CHEST, 1 VIEW, NON [id number] 19:17:00Reason for exam:->reposition of [place] chris catheterShould this be performed at the bedside?->YesFINAL REPORT Chest, one view. HISTORY: reposition of [place] chris catheter COMPARISON: Radiograph from 01/17/2019 IMPRESSION: The right IJ [place]- Chris catheter has its tip likely coiled over the main pulmonary artery. Unc hanged positioning of the left chest pacer/ICD. The heart is enlarged and unchan ged. Small right pleural effusion with a right basilar opacity. This right basil ar opacity could be atelectasis or pneumonia depending on clinical setting. Unch anged pulmonary edema. No pneumothorax. No acute bony abnormality. Signed: Pantera Abarca MDRort Verified Date/Time: 01/17/2019 19:17:58 Reading Location: [address] Consult Reading Room , CHEST, 1 VIEW, NON [id number] 19:00:00Reason for exam:->PA placementShould this be performed at the bedside?->YesFINAL REPORT Chest, one view. HISTORY: PA placement COMPARISON: Radiograph from earlier today IMPRESSION: The pulmonary arterial catheter is coiled in the pulmonary artery with the tip over the left pulmonary artery. Left chest ICD/pacer with leads over the right atrium, right ventricle, and coronary sinus. The heart is enlarged and unchanged. Small right pleural effusion with associated atelectasis. The pulmonary edema is unchanged. The graft prior median sternotomy. No acute bony abnormality. Signed: Pantera Abarca MDReport Verified Date/Time: 01/17/2019 19:00:56 Reading Location: [address] Consult Reading Room EN SATURATION, [id number] 18:16:00* Test Item Value Reference Range Comments O2 SATURATION (MEASURED) (BEAKER) (test nokc=7594) 50.9 % POCT-GLUCOSE [id number] 18:14:00* Test Item Value Reference Range Comments POC-GLUCOSE METER (BEAKER) (test wyaq=5681) 123 mg/dL 70-110 TESTED AT [facility] [address] [facility] [address] BASIC METABOLIC [id number] 15:13:00* Test Item Value Reference Range Comments SODIUM (BEAKER) (test dbpw=704) 143 meq/L 136-145 POTASSIUM (BEAKER) (test nzls=492) 3.8 meq/L 3.5-5.1 Specimen slightly hemolyzed CHLORIDE (BEAKER) (test xarb=738) 109 meq/L 98-107 CO2 (BEAKER) (test nowa=272) 25 meq/L 22-29 BLOOD UREA NITROGEN (BEAKER) (test twte=166) 32 mg/dL 7-21 CREATININE (BEAKER) (test uwsw=451) 1.22 mg/dL 0.57-1.25 Specimen slightly hemolyzed GLUCOSE RANDOM (BEAKER) (test tlps=684) 131 mg/dL 70-105 CALCIUM (BEAKER) (test ocgw=268) 8.8 mg/dL 8.4-10.2 EGFR (BEAKER) (test lbmc=8338) 59 mL/min/1.73 sq m ESTIMATED GFR IS NOT ACCURATE CREATININE CLEARANCE IN PREDICTING GLOMERULAR FILTRATION RATE. ESTIMATED GFR IS NOT APPLICABLE FOR DIALYSIS PATIENTS. Specimen slightly ictericPROTHROMBIN [id number] 14:29:00* Test Item Value Reference Range Comments PROTIME (BEAKER) (test sxub=748) 25.5 seconds 11.7-14.7 INR (BEAKER) (test rscd=809) 2.3 <=5.9 RECOMMENDED COUMADIN/WARFARIN INR THERAPY RANGESSTANDARD DOSE: 2.0 - 3.0 Inclu sharlene: PROPHYLAXIS for venous thrombosis, systemic embolization; TREATMENT for ailyn ous thrombosis and/or pulmonary embolus.HIGH RISK: Target INR is 2.5-3.5 for pat ients with mechanical heart valves.[id number] 13:29:00* Test Item Value Reference Range Comments RPR SCREEN (MILAGRO) (test dxze=366) Nonreactive Nonreactive TROPONIN [id number] 13:27:00* Test Item Value Reference Range Comments TROPONIN I ([facility]) (test pwem=975) 0.09 ng/mL 0.00-0.03 Troponin I (TnI) levels must be interpreted in the context of the presenting sym ptoms and the clinical findings. Elevated TnI levels indicate myocardial damage, but are not specific for ischemic heart disease. Elevated TnI levels are seen in patients with other cardiac conditions (including myocarditis and congestive h eart failure), and slight TnI elevations occur in patients with other conditions , including sepsis, renal failure, acidosis, acute neurological disease, and per sistent tachyarrhythmia.LACTIC ACID, [id number] 13:15:00* Test Item Value Reference Range Comments LACTATE BLOOD VENOUS (2) ([facility]) (test rcmn=3878) 1.5 mmol/L 0.5-2.2 Specimen slightly hemolyzed Specimen slightly ictericPOCT-GLUCOSE [id number] 13:08:00* Test Item Value Reference Range Comments POC-GLUCOSE METER ([employer]) (test jkzu=7587) 117 mg/dL 70-110 TESTED AT [facility] [address] [facility] [address] [id number] 11:46:00* Test Item Value Reference Range Comments [facility]ONIN [facility] (test ltns=6918) 0.58 ng/mL <0.05 SEPSIS RISK (ng/mL)Low: 0.05-0.50Intermediate: 0.51-2.00High: > =2.01CYTOMEGALOVIRUS ANTIBODY, [id number] 11:20:00* Test Item Value Reference Range Comments CYTOMEGALOVIRUS, IGG ([facility]) (test kdeb=5351) Positive Negative, Equivocal CMV IgG Result Interpretation: </=0.8 Al Negative 0.9-1.0 Al Equivocal >/=1.1 Al PositiveCYTOMEGALOVIRUS ANTIBODY, [id number] 11:20:00* Test Item Value Reference Range Comments CYTOMEGALOVIRUS IGM ANTIBODY (BEAKER) (test wrsp=4828) Negative Negative, Equivocal CMV IgM Result Interpretation: </=0.8 Al Negative 0.9-1.0 Al Equivocal > /=1.1 Al PositiveEBV ANTIBODY, [id number] 11:20:00* Test Item Value Reference Range Comments ASHVIN RUSH VIRAL CAPSID ANTIGEN IGG (BEAKER) (test eejj=0536) Positive Negative, Equivocal Ashvin Rush Viral Capsid Antigen IgG Result Interpretation: </=0.8 Al Negative 0.9-1.0 Al Equivocal >/=1.1 Al PositiveEBV ANTIBODY, [id number] 11:20:00* Test Item Value Reference Range Comments ASHVIN RUSH VIRAL CAPSID ANTIGEN IGM (BEAKER) (test gihb=3243) Negative Negative, Equivocal Ashvin Rush Viral Capsid Antigen IgM Result Interpretation: </=0.8 Al Negative 0.9-1.0 Al Equivocal >/=1.1 Al PositiveACETAMINOPHEN LEVEL 2019-01-17 10:51:00* Test Item Value Reference Range Comments ACETAMINOPHEN LEVEL (BEAKER) (test cfyt=452) < ug/mL 10.0-30.0 Specimen moderately hemolyzed Therapeutic Range: 10.0-30.0 g/mLToxic Levels: >200.0 g/mLAMMONIA 2019-01-17 10:09:00* Test Item Value Reference Range Comments AMMONIA (BEAKER) (test iqdq=060) 83 mol/L 18-72 POCT-GLUCOSE [id number] 10:02:00* Test Item Value Reference Range Comments POC-GLUCOSE METER (BEAKER) (test iqbf=7789) 89 mg/dL 70-110 TESTED AT [address] [address] RAPID DRUG SCREEN, [id number] 08:35:00* Test Item Value Reference Range Comments BARBITURATE URINE (BEAKER) (test kvuf=077) Negative Negative BENZODIAZEPINE SCREEN URINE (BEAKER) (test syfp=936) Negative Negative COCAINE (METAB.) SCREEN (BEAKER) (test ckla=8420) Negative Negative METHADONE SCREEN (BEAKER) (test uxvv=2769) Negative Negative OPIATE SCREEN URINE (BEAKER) (test ovow=080) Negative Negative CANNABINOID SCREEN URINE (BEAKER) (test yzbp=684) Negative Negative AMPH/METHAMPH SCREEN (BEAKER) (test naev=9691) Negative Negative PHENCYCLIDINE SCREEN URINE (BEAKER) (test avml=384) Negative Negative OXYCODONE SCREEN URINE (BEAKER) (test uuuv=7600) Negative Negative DRUG CUTOFF CONC.Cocaine 300 ng/mL Cannabinoid 50 ng/mL Benzodiazepine 200 ng/mLBarbiturate 200 ng/mLPh encyclidine 25 ng/mLOpiate 300 ng/mLMethadone 300 ng/mLAmphetamine/ 1000 ng/mL MethamphetamineOxycodone 300 ng/mLThis assay provides an unconfirmed qualitative test result for the cli nical management of patients in emergency situations. Chain of custody not maint ained. Some umqe-hmm-velloza medications, as well as adulterants, may cause inac curate results. Clinical correlation should be applied. A more comprehensive teodora g screen or confirmation of a detected drug may be performed upon request. CREATININE, RANDOM [id number] 08:07:00* Test Item Value Reference Range Comments CREATININE URINE (BEAKER) (test svth=052) 25.1 mg/dL Reference Range: No NormalsSODIUM, RANDOM [id number] 08:07:00* Test Item Value Reference Range Comments SODIUM URINE (BEAKER) (test huoi=378) 63 meq/L Reference Range: No NormalsUREA NITROGEN, RANDOM [id number] 08:07:00* Test Item Value Reference Range Comments UREA NITROGEN URINE (BEAKER) (test evkj=720) 408 mg/dL Reference Range: No NormalsACETAMINOPHEN [id number] 06:54:00* Test Item Value Reference Range Comments ACETAMINOPHEN LEVEL (BEAKER) (test csah=647) < ug/mL 10.0-30.0 Therapeutic Range: 10.0-30.0 g/mLToxic Levels: >200.0 g/mLMAGNESIUM 2019-01-17 06:47:00* Test Item Value Reference Range Comments MAGNESIUM (BEAKER) (test lbeo=906) 2.3 mg/dL 1.6-2.6 BASIC METABOLIC [id number] 06:47:00* Test Item Value Reference Range Comments SODIUM (BEAKER) (test ytlc=030) 144 meq/L 136-145 POTASSIUM (BEAKER) (test kxad=042) 3.4 meq/L 3.5-5.1 CHLORIDE (BEAKER) (test hkuk=591) 108 meq/L 98-107 CO2 (BEAKER) (test tzzx=337) 27 meq/L 22-29 BLOOD UREA NITROGEN (BEAKER) (test kbyb=150) 38 mg/dL 7-21 CREATININE (BEAKER) (test cdat=365) 1.27 mg/dL 0.57-1.25 GLUCOSE RANDOM (BEAKER) (test chuq=187) 85 mg/dL 70-105 CALCIUM (BEAKER) (test qyse=666) 8.7 mg/dL 8.4-10.2 EGFR (BEAKER) (test xlyf=9700) 56 mL/min/1.73 sq m ESTIMATED GFR IS NOT ACCURATE CREATININE CLEARANCE IN PREDICTING GLOMERULAR FILTRATION RATE. ESTIMATED GFR IS NOT APPLICABLE FOR DIALYSIS PATIENTS. Specimen slightly ictericTROPONIN [id number] 06:42:00* Test Item Value Reference Range Comments TROPONIN I (BEAKER) (test szdb=147) 0.13 ng/mL 0.00-0.03 Troponin I (TnI) levels must be interpreted in the context of the presenting sym ptoms and the clinical findings. Elevated TnI levels indicate myocardial damage, but are not specific for ischemic heart disease. Elevated TnI levels are seen in patients with other cardiac conditions (including myocarditis and congestive h eart failure), and slight TnI elevations occur in patients with other conditions , including sepsis, renal failure, acidosis, acute neurological disease, and per sistent tachyarrhythmia.LACTIC ACID, [id number] 06:38:00* Test Item Value Reference Range Comments LACTATE BLOOD VENOUS (2) (BEAKER) (test pjdg=7395) 1.8 mmol/L 0.5-2.2 Specimen slightly hemolyzed CBC W/PLT COUNT & AUTO [id number] 06:20:00* Test Item Value Reference Range Comments WHITE BLOOD CELL COUNT (BEAKER) (test mdlb=066) 10.6 K/ L 3.5-10.5 RED BLOOD CELL COUNT (BEAKER) (test rjrr=437) 3.53 M/ L 4.63-6.08 HEMOGLOBIN (BEAKER) (test yrdd=291) 10.6 GM/DL 13.7-17.5 HEMATOCRIT (BEAKER) (test hqqa=512) 35.0 % 40.1-51.0 MEAN CORPUSCULAR VOLUME (BEAKER) (test lzbu=497) 99.2 fL 79.0-92.2 MEAN CORPUSCULAR HEMOGLOBIN (BEAKER) (test jgqv=986) 30.0 pg 25.7-32.2 MEAN CORPUSCULAR HEMOGLOBIN CONC (BEAKER) (test gjkd=782) 30.3 GM/DL 32.3-36.5 RED CELL DISTRIBUTION WIDTH (BEAKER) (test pcss=810) 18.1 % 11.6-14.4 PLATELET COUNT (BEAKER) (test kduj=819) 137 K/CU MM 150-450 MEAN PLATELET VOLUME (BEAKER) (test ceix=864) 11.3 fL 9.4-12.4 NUCLEATED RED BLOOD CELLS (BEAKER) (test ibqq=616) 0 /100 WBC 0-0 NEUTROPHILS RELATIVE PERCENT (BEAKER) (test fjsz=586) 81 % LYMPHOCYTES RELATIVE PERCENT (BEAKER) (test qyxu=188) 11 % MONOCYTES RELATIVE PERCENT (BEAKER) (test epop=462) 7 % EOSINOPHILS RELATIVE PERCENT (BEAKER) (test cltl=917) 1 % BASOPHILS RELATIVE PERCENT (BEAKER) (test nsxl=053) 0 % NEUTROPHILS ABSOLUTE COUNT (BEAKER) (test cxaz=741) 8.64 K/ L 1.78-5.38 LYMPHOCYTES ABSOLUTE COUNT (BEAKER) (test cqxg=511) 1.14 K/ L 1.32-3.57 MONOCYTES ABSOLUTE COUNT (BEAKER) (test lrqc=593) 0.71 K/ L 0.30-0.82 EOSINOPHILS ABSOLUTE COUNT (BEAKER) (test oyhi=098) 0.07 K/ L 0.04-0.54 BASOPHILS ABSOLUTE COUNT (BEAKER) (test zqzq=916) 0.02 K/ L 0.01-0.08 IMMATURE GRANULOCYTES-RELATIVE PERCENT (BEAKER) (test psng=6318) 1 % 0-1 [id number] 04:36:00* Test Item Value Reference Range Comments FERRITIN (BEAKER) (test slrw=906) 439 ng/mL 5-275 HEPATITIS B SURFACE [id number] 03:59:00* Test Item Value Reference Range Comments HEPATITIS B SURFACE ANTIBODY (BEAKER) (test oesm=188) < mIU/mL <8.0 HEPATITIS B CORE ANTIBODY, [id number] 03:56:00* Test Item Value Reference Range Comments HEPATITIS B CORE TOTAL ANTIBODY (BEAKER) (test aooi=592) Nonreactive Nonreactive HEPATITIS PANEL, [id number] 03:56:00* Test Item Value Reference Range Comments HEPATITIS A IGM ANTIBODY (BEAKER) (test ctze=513) Nonreactive Nonreactive HEPATITIS B CORE IGM ANTIBODY (BEAKER) (test zxyw=522) Nonreactive Nonreactive HEPATITIS C ANTIBODY (BEAKER) (test apdz=096) Nonreactive Nonreactive HEPATITIS B SURFACE ANTIGEN (2) (BEAKER) (test xnyf=9637) Nonreactive Nonreactive HIV-1 ANTIGEN WITH HIV-1/2 [id number] 03:56:00* Test Item Value Reference Range Comments HIV-1 ANTIGEN WITH HIV 1\T\2 ANTIBODY (2) (BEAKER) (test xwxx=7303) Nonreactive Nonreactive URINALYSIS W/ REFLEX URINE [id number] 02:22:00* Test Item Value Reference Range Comments COLOR (BEAKER) (test pgwp=648) Light Yellow CLARITY (BEAKER) (test mlxm=958) Clear SPECIFIC GRAVITY UA (BEAKER) (test hlll=103) 1.012 1.001-1.035 PH UA (BEAKER) (test xjds=942) 6.5 5.0-8.0 PROTEIN UA (BEAKER) (test iksn=121) Negative Negative GLUCOSE UA (BEAKER) (test rlbo=005) Negative Negative KETONES UA (BEAKER) (test wiad=457) Negative Negative BILIRUBIN UA (BEAKER) (test nocc=238) Negative Negative BLOOD UA (BEAKER) (test xsog=008) Negative Negative NITRITE UA (BEAKER) (test sxlu=312) Negative Negative LEUKOCYTE ESTERASE UA (BEAKER) (test uivs=533) Negative Negative UROBILINOGEN UA (BEAKER) (test aakm=004) 0.2 mg/dL 0.2-1.0 RBC UA (BEAKER) (test idse=773) 4 /HPF WBC UA (BEAKER) (test cjyf=688) < /HPF BACTERIA (BEAKER) (test ctnw=201) Rare SOURCE(BEAKER) (test qyyp=3062) [id number] 01:55:00* Test Item Value Reference Range Comments PHOSPHORUS (BEAKER) (test fibh=209) 2.4 mg/dL 2.3-4.7 [id number] 01:55:00* Test Item Value Reference Range Comments MAGNESIUM (BEAKER) (test puod=927) 2.2 mg/dL 1.6-2.6 CREATINE KINASE (CK)2019-01-17 01:55:00* Test Item Value Reference Range Comments CREATINE KINASE TOTAL (BEAKER) (test daxr=527) 2530 U/L 29-200 IRON, TIBC, % SAT. (WITHOUT FERRITIN)2019-01-17 00:51:00* Test Item Value Reference Range Comments IRON (BEAKER) (test jagt=510) 34.0 ug/dL 40.0-160.0 TOTAL IRON BINDING CAPACITY (BEAKER) (test orji=331) 290 ug/dL 250-450 IRON % SATURATION (2) (BEAKER) (test iujd=8623) 12 % 20-55 [id number] 00:50:00* Test Item Value Reference Range Comments ALPHA-1 ANTITRYPSIN (BEAKER) (test unis=792) 177.90 mg/dL 90.00-200.00 [id number] 00:31:00* Test Item Value Reference Range Comments PROTIME (BEAKER) (test kspz=905) 31.3 seconds 11.7-14.7 INR (BEAKER) (test efly=776) 3.0 <=5.9 PARTIAL THROMBOPLASTIN TIME (BEAKER) (test xuyd=975) 37.5 seconds 22.5-36.0 RECOMMENDED COUMADIN/WARFARIN INR THERAPY RANGESSTANDARD DOSE: 2.0 - 3.0 Inclu sharlene: PROPHYLAXIS for venous thrombosis, systemic embolization; TREATMENT for ailyn ous thrombosis and/or pulmonary embolus.HIGH RISK: Target INR is 2.5-3.5 for pat ients with mechanical heart valves.[id number] 00:30:00* Test Item Value Reference Range Comments ETHANOL (BEAKER) (test wuse=585) < mg/dL <=10 [id number] 00:26:00* Test Item Value Reference Range Comments FIBRINOGEN LEVEL (BEAKER) (test wooa=289) 232 mg/dl 225-434 B-TYPE NATRIURETIC FACTOR (BNP)2019-01-17 00:26:00* Test Item Value Reference Range Comments B-TYPE NATRIURETIC PEPTIDE (BEAKER) (test pygf=986) 2543 pg/mL 0-100 PROTHROMBIN TIME/[id number] 00:26:00* Test Item Value Reference Range Comments PROTIME (BEAKER) (test kvzx=436) 31.3 seconds 11.7-14.7 INR (BEAKER) (test sfbn=985) 3.0 <=5.9 RECOMMENDED COUMADIN/WARFARIN INR THERAPY RANGESSTANDARD DOSE: 2.0 - 3.0 Inclu sharlene: PROPHYLAXIS for venous thrombosis, systemic embolization; TREATMENT for ailyn ous thrombosis and/or pulmonary embolus.HIGH RISK: Target INR is 2.5-3.5 for pat ients with mechanical heart valves.[id number] 00:25:00* Test Item Value Reference Range Comments AMMONIA (BEAKER) (test zbbh=030) 63 mol/L 18-72 CBC W/PLT COUNT & AUTO [id number] 00:08:00* Test Item Value Reference Range Comments WHITE BLOOD CELL COUNT (BEAKER) (test auki=976) 12.2 K/ L 3.5-10.5 RED BLOOD CELL COUNT (BEAKER) (test pbky=607) 3.53 M/ L 4.63-6.08 HEMOGLOBIN (BEAKER) (test evgs=063) 10.7 GM/DL 13.7-17.5 HEMATOCRIT (BEAKER) (test zeqs=796) 36.0 % 40.1-51.0 MEAN CORPUSCULAR VOLUME (BEAKER) (test vfja=545) 102.0 fL 79.0-92.2 MEAN CORPUSCULAR HEMOGLOBIN (BEAKER) (test wisq=201) 30.3 pg 25.7-32.2 MEAN CORPUSCULAR HEMOGLOBIN CONC (BEAKER) (test xawh=973) 29.7 GM/DL 32.3-36.5 RED CELL DISTRIBUTION WIDTH (BEAKER) (test lbme=256) 18.0 % 11.6-14.4 PLATELET COUNT (BEAKER) (test lhro=470) 143 K/CU MM 150-450 MEAN PLATELET VOLUME (BEAKER) (test rkaj=204) 11.3 fL 9.4-12.4 NUCLEATED RED BLOOD CELLS (BEAKER) (test fjsi=819) 0 /100 WBC 0-0 NEUTROPHILS RELATIVE PERCENT (BEAKER) (test izyi=493) 86 % LYMPHOCYTES RELATIVE PERCENT (BEAKER) (test zrmo=967) 8 % MONOCYTES RELATIVE PERCENT (BEAKER) (test liwi=978) 5 % EOSINOPHILS RELATIVE PERCENT (BEAKER) (test fivn=561) 0 % BASOPHILS RELATIVE PERCENT (BEAKER) (test vlmi=128) 0 % NEUTROPHILS ABSOLUTE COUNT (BEAKER) (test xvzp=163) 10.58 K/ L 1.78-5.38 LYMPHOCYTES ABSOLUTE COUNT (BEAKER) (test szad=859) 0.93 K/ L 1.32-3.57 MONOCYTES ABSOLUTE COUNT (BEAKER) (test jmde=383) 0.60 K/ L 0.30-0.82 EOSINOPHILS ABSOLUTE COUNT (BEAKER) (test mhpq=386) 0.02 K/ L 0.04-0.54 BASOPHILS ABSOLUTE COUNT (BEAKER) (test bahj=286) 0.02 K/ L 0.01-0.08 IMMATURE GRANULOCYTES-RELATIVE PERCENT (BEAKER) (test jvrk=2970) 1 % 0-1 RAD, CHEST, 1 VIEW, NON [id number] 23:50:00Reason for exam:->sobShould this be performed at the bedside?->YesFINAL REPORT History: Shortness of breath. Comparison: None. Findings: A single view of the chest is submitted. The cardiac silhouette is enlarged. The patient has undergone previous median sternotomy and left subclavian/epicardial ICD placement. There is central vascular congestion and bilateral interstitial opacifications suggesting pulmonary interstitial edema. Blunting of the right costophrenic sulcus suggests a small effusion. There is no pneumothorax or acute bony abnormality. Signed: Jose Fuller MDReport Verified Date/Time: 01/16/2019 23:50:14 Reading Location: [address] Reading Room ONIN I 2019-01-16 23:43:00* Test Item Value Reference Range Comments TROPONIN I (BEAKER) (test dqxy=611) 0.10 ng/mL 0.00-0.03 Troponin I (TnI) levels must be interpreted in the context of the presenting sym ptoms and the clinical findings. Elevated TnI levels indicate myocardial damage, but are not specific for ischemic heart disease. Elevated TnI levels are seen in patients with other cardiac conditions (including myocarditis and congestive h eart failure), and slight TnI elevations occur in patients with other conditions , including sepsis, renal failure, acidosis, acute neurological disease, and per sistent tachyarrhythmia.COMPREHENSIVE METABOLIC [id number] 23:38:00* Test Item Value Reference Range Comments TOTAL PROTEIN (BEAKER) (test hmmc=490) 6.0 gm/dL 6.0-8.3 ALBUMIN (BEAKER) (test dggb=2460) 3.3 g/dL 3.5-5.0 ALKALINE PHOSPHATASE (BEAKER) (test xyij=078) 86 U/L 40-150 BILIRUBIN TOTAL (BEAKER) (test vzvz=841) 2.7 mg/dL 0.2-1.2 SODIUM (BEAKER) (test egbg=753) 139 meq/L 136-145 POTASSIUM (BEAKER) (test rlsb=666) 3.8 meq/L 3.5-5.1 CHLORIDE (BEAKER) (test utns=634) 106 meq/L 98-107 CO2 (BEAKER) (test ppxj=798) 20 meq/L 22-29 BLOOD UREA NITROGEN (BEAKER) (test tzvx=450) 41 mg/dL 7-21 CREATININE (BEAKER) (test ylmh=293) 1.42 mg/dL 0.57-1.25 GLUCOSE RANDOM (BEAKER) (test hlka=026) 93 mg/dL 70-105 CALCIUM (BEAKER) (test jqbm=101) 8.6 mg/dL 8.4-10.2 AST (SGOT) (BEAKER) (test qlvi=045) 1820 U/L 5-34 ALT (SGPT) (BEAKER) (test mwbr=355) 1453 U/L 6-55 EGFR (BEAKER) (test rubp=2698) 49 mL/min/1.73 sq m ESTIMATED GFR IS NOT ACCURATE CREATININE CLEARANCE IN PREDICTING GLOMERULAR FILTRATION RATE. ESTIMATED GFR IS NOT APPLICABLE FOR DIALYSIS PATIENTS. Specimen slightly ictericLACTIC ACID, [id number] 23:33:00* Test Item Value Reference Range Comments LACTATE BLOOD VENOUS (2) (BEAKER) (test pdxw=2808) 3.4 mmol/L 0.5-2.2 Specimen slightly hemolyzed Specimen slightly ictericBLOOD GAS, [id number] 23:22:00* Test Item Value Reference Range Comments PH ARTERIAL (BEAKER) (test mhrh=388) 7.53 7.35-7.45 PCO2 ARTERIAL (BEAKER) (test vjqf=184) 26 mmHg 35-45 PO2 ARTERIAL (BEAKER) (test fvur=154) 569 mmHg 80-90 O2 SATURATION ARTERIAL (BEAKER) (test zbkb=008) 99.9 % 96.0-97.0 HCO3 ARTERIAL (BEAKER) (test gwgu=067) 21 mmol/L 21-29 BASE EXCESS ARTERIAL (BEAKER) (test gzgu=552) -0.6 mmol/L -2.0-3.0 PATIENT TEMPERATURE (BEAKER) (test plre=8980) 37.5 C FIO2 (BEAKER) (test cpgk=1330) 100.0 % POCT-GLUCOSE [id number] 22:36:00* Test Item Value Reference Range Comments POC-GLUCOSE METER (BEAKER) (test bqtk=7224) 98 mg/dL 70-110 TESTED AT [facility] [address] [facility] [id number]
[2019-02-02] MEDS: AMIODARONE 900MG 500 ML IV SCH ×6 (09:18→14:43)
[2019-02-02] MEDS ORDERED: MIDAZOLAM HCL 25 MG in SODIUM CHLORIDE 0.9% 50ML 45 ML IV PRN (09:30)
[2019-02-02] MEDS ORDERED: AMIODARONE HCL 360MG 200 ML IV SCH ×2 (09:30→12:00)
[2019-02-02] MEDS ORDERED: AMIODARONE HCL 150MG 100 ML IV SCH (09:30)
[2019-02-02] MEDS ORDERED: MIDAZOLAM HCL 2 MG/2 ML VIAL IV STA (09:31)
[2019-02-02] MEDS: NOREPINEPHRINE INJ 4MG/4ML 8 MG in DEXTROSE 5% 250ML 250 ML IV SCH ×3 (09:35→17:08)
--- NOTE | 2019-02-02 09:35 | NUR ---
B TAYLOR HERE SEEING PT
--- NOTE | 2019-02-02 09:53 | NUR ---
report to slab inspector team and care turned over to slab inspector staff
--- NOTE | 2019-02-02 10:09 | NUR ---
EMS GAVE APPROX 1050 CC IVF USER EXPERIENCE DEVELOPER WITH MEDS OF MG 2 GRAMS, AMNIO 150MG AND VERSED 5MG USER EXPERIENCE DEVELOPER OF ER.
[2019-02-02 10:14] LABS: BASOPHILS # (AUTO) 0.1 (0.0-0.1); BASOPHILS % 0.8 % (0.0-1.0); EOSINOPHILS # (AUTO) 0.1 (0.0-0.4); EOSINOPHILS % 1.4 % (0.0-6.0); HEMATOCRIT 36.1 % (38.2-49.6); HEMOGLOBIN 11.5 g/dL (14.0-18.0); LYMPHOCYTES # (AUTO) 1.5 (1.0-3.2); LYMPHOCYTES % 22.8 % (18.0-39.1); MEAN CORPUSCULAR HEMOGLOBIN 30.1 pg (28-32); MEAN CORPUSCULAR HGB CONC 31.9 g/dL (31-35); MEAN CORPUSCULAR VOLUME 94.5 fL (81-99); MONOCYTES # (AUTO) 0.5 (0.2-0.8); MONOCYTES % 7.4 % (4.4-11.3); NEUTROPHILS # (AUTO) 4.4 (2.1-6.9); NEUTROPHILS % 67.4 % (38.7-80.0); PLATELET COUNT 189 x10e3/uL (140-360); RED BLOOD COUNT 3.82 x10e6/uL (4.3-5.7); RED CELL DISTRIBUTION WIDTH 17.1 % (11.7-14.4)
[2019-02-02 10:18] LABS: INR 1.21; PROTHROMBIN TIME 15.9 seconds (11.9-14.5)
[2019-02-02 10:19] LABS: PARTIAL THROMBOPLASTIN TIME 33.2 seconds (23.8-35.5)
--- OUTSIDE RECORDS SUMMARY | 2019-02-02 10:21 | XMS REPORT | Clinical Summary ---
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); Acute on chronic systolic heart failure (HCC); Acute liver failure without hepatic coma; Coronary artery disease involving mohegan coronary artery of mohegan heart without angina pectoris 01/16/2019 Hospital Cardiology [...] ms QTC Calculatio n(Bazett) 534 ms P Groton 108 degrees R Groton 162 degrees T Groton -7 degrees AV dual-paced rhythm with frequent [...] CDT CERULOPLASMIN Routine 01/17/2019 12:01 AM CDT [id number]\\, Routine 01/17/2019 SERUM 12:01 AM CDT FERRITIN [...] (H)Comment: TESTED AT 70 - 110 mg/dL [facility] [address] [facility] [address] Specimen Blood Performing Organization Address City/State/Zipcode Phone Number [facility] [address] [place] [address] [facility] * XR chest 1 view portable / bedside (02/01/2019 9:12 AM CDT) Only the most recent of 19 results within the time period is included. Specimen Narrative Performed At FINAL REPORT [facility] Portable chest, 02/01/2019 COMPARISON: 01/31/2019 There [...] MD Report Verified Date/Time:02/01/2019 10:34:00 Reading Location: [facility] Radiology Reading Room Procedure Note Interface, External [...] Report Verified Date/Time: 02/01/2019 10:34:00 Reading Location: [facility] Radiology Reading Room Performing Organization Address City/State/Zipcode Phone Number [facility] * Oxygen saturation, measured (02/01/2019 4:37 AM CDT) Only the most recent of 15 results within the time period is included. O2 Saturation (Measured) 57.7 % [facility] Specimen Blood Narrative Performed At PICC line [facility] Performing Organization Address City/State/Zipcode Phone Number [facility] [address] [place] [address] [facility] * CBC with platelet count + automated diff (02/01/2019 4:37 AM CDT) Only the most recent of 17 results within the time period is included. WBC 4.6 3.5 - 10.5 K/L [facility] RBC 3.63 (L) 4.63 - 6.08 M/L [facility] Hemoglobin 10.8 (L) 13.7 - 17.5 GM/DL [facility] Hematocrit 34.7 (L) 40.1 - 51.0 % [facility] MCV 95.6 (H) 79.0 - 92.2 fL [facility] MCH 29.8 25.7 - 32.2 pg [facility] MCHC 31.1 (L) 32.3 - 36.5 GM/DL [facility] RDW 16.8 (H) 11.6 - 14.4 % [facility] Platelets 177 150 - 450 K/CU MM [facility] MPV 10.2 9.4 - 12.4 fL [facility] nRBC 0 0 - 0 /100 WBC [facility] % Neutros 53 % [facility] % Lymphs 32 % [facility] % Monos 9 % [facility] % Eos 5 % [facility] % Baso 1 % [facility] # Neutros 2.43 1.78 - 5.38 K/L [facility] # Lymphs 1.47 1.32 - 3.57 K/L [facility] # Monos 0.39 0.30 - 0.82 K/L [facility] # Eos 0.21 0.04 - 0.54 K/L [facility] # Baso 0.06 0.01 - 0.08 K/L [facility] Immature 0 0 - 1 % [facility] Specimen Blood Performing Organization Address City/State/Zipcode Phone Number [address] * Magnesium (02/01/2019 4:37 AM CDT) Only the most recent of 21 results within the time period is included. Magnesium 2.0 1.6 - 2.6 mg/dL [facility] Specimen Blood Performing Organization Address City/State/Zipcode Phone Number [address] * Comprehensive metabolic panel (02/01/2019 4:37 AM CDT) Only the most recent of 16 results within the time period is included. Protein, Total 5.8 (L) 6.0 - 8.3 gm/dL [facility] Albumin 3.0 (L) 3.5 - 5.0 g/dL [facility] Alkaline Phosphatase 66 40 - 150 U/L [facility] Total Bilirubin 1.0 0.2 - 1.2 mg/dL [facility] Sodium 139 136 - 145 meq/L [facility] Potassium 4.0 3.5 - 5.1 meq/L [facility] Chloride 106 98 - 107 meq/L [facility] CO2 27 22 - 29 meq/L [facility] BUN 20 7 - 21 mg/dL [facility] Creatinine 1.06 0.57 - 1.25 mg/dL [facility] Glucose 102 70 - 105 mg/dL [facility] Calcium 8.9 8.4 - 10.2 mg/dL [facility] AST 25 5 - 34 U/L [facility] ALT 38 6 - 55 U/L [facility] EGFR 69Comment: ESTIMATED GFR IS mL/min/1.73 sq m [facility] NOT ACCURATE CREATININE [facility] CLEARANCE IN PREDICTING GLOMERULAR FILTRATION RATE. ESTIMATED GFR IS NOT APPLICABLE FOR DIALYSIS PATIENTS. Specimen Blood Performing Organization Address City/State/Zipcode Phone Number [facility] [address] [place] [address] MED[facility]ENTER * Manual Differential (01/31/2019 5:13 AM CDT) Only the most recent of 2 results within the time period is included. % Neutros 69 % [facility] % Lymphs 26 % [facility] % Monos 2 % [facility] % Eos 3 % [facility] # Neutros 4.00 1.78 - 5.38 K/ul [facility] # Lymphs 1.51 1.32 - 3.57 K/ul [facility] # Monos 0.12 (L) 0.30 - 0.82 K/uL [facility] # Eos 0.17 0.04 - 0.54 K/uL [facility] Total Counted 100 [facility] WBC Morphology Normal [facility] Giant Platelet Present [facility] Poikilocytes 1+ few [facility] Artifact Present [facility] Platelet Conc Adequate [facility] Specimen Blood Narrative Performed At Received comment: [facility] User comments: [facility] Slide comments: Performing Organization Address City/[facility] [place] [address] [phone] [place] [address] * B-type Natriuretic Factor (BNP) (01/30/2019 3:53 AM CDT) Only the most recent of 2 results within the time period is included. BNP 1,112 (H) 0 - 100 pg/mL [facility] Specimen Blood Performing Organization Address [facility] [place] [address] [phone] [place] [address] * Iron, TIBC, % sat. (without ferritin) (01/25/2019 4:27 AM CDT) Only the most recent of 2 results within the time period is included. Iron 92.0 40.0 - 160.0 ug/dL [facility] TIBC 300 250 - 450 ug/dL [facility] Iron % Saturation 31 20 - 55 % [facility] Specimen Blood Performing Organization Address City/[facility] Phone Number [address] [address] [facility] * Ferritin (01/25/2019 4:27 AM CDT) Only the most recent of 2 results within the time period is included. Ferritin 183 5 - 275 ng/mL [facility] Specimen Blood Performing Organization Address City/[facility] Phone Number [address] [address] [facility] * Phosphorus (01/23/2019 4:00 AM CDT) Only the most recent of 7 results within the time period is included. Phosphorus 2.8Comment: Specimen slightly 2.3 - 4.7 mg/dL [facility] Specimen Blood Performing Organization Address [facility] Phone Number [address] * Potassium (01/22/2019 9:15 AM CDT) Only the most recent of 4 results within the time period is included. Potassium 4.3Comment: Specimen slightly 3.5 - 5.1 meq/L [facility] Specimen Blood Performing Organization Address [facility] Phone Number [address] * Vitamin B12 and Folate (01/22/2019 2:45 AM CDT) Vitamin B12 1,201 (H) 213 - 816 pg/mL [facility] Folate 13.5 >=7.0 ng/mL [facility] Specimen Blood Performing Organization Address [facility] Phone Number [address] * Lactic acid, venous (01/21/2019 8:25 PM CDT) Only the most recent of 6 results within the time period is included. Lactate, Venous 2.0Comment: Specimen slightly 0.5 - 2.2 mmol/L [facility] Specimen Blood Performing Organization Address [facility] Phone Number [address] * Prothrombin time/INR (01/21/2019 4:11 AM CDT) Only the most recent of 5 results within the time period is included. Protime 18.5 (H) 11.7 - 14.7 seconds [facility] INR 1.5 <=5.9 [facility] Specimen Blood Narrative Performed At RECOMMENDED COUMADIN/WARFARIN INR THERAPY RANGES [facility] STANDARD DOSE: 2.0 - 3.0 Includes: PROPHYLAXIS for venous thrombosis, [facility] systemic embolization; TREATMENT for venous thrombosis and/or pulmonary embolus. HIGH RISK: Target INR is 2.5-3.5 for patients with mechanical heart valves. Performing Organization Address City/State/Zipcode Phone Number [facility] [address] [place] [address] [facility] * NM PET Cardiac Viability (01/20/2019 1:48 PM CDT) Specimen Narrative Performed At FINAL REPORT [facility] [employer] [facility] [employer] PROCEDURE: MYOCARDIAL METABOLISM PET IMAGING with MYOCARDIAL PERFUSION PET IMAGING (Rest-Only) CPT CODE: 59211, [id number] INDICATION: ischemic cardiomyopathy, assess myocardial viability CARDIOVASCULAR [...] MD Report Verified Date/Time:01/20/2019 16:11:04 Reading Location: [address] Reading Room Procedure Note Interface, External Ris In - 01/20/2019 4:13 PM CDT FINAL REPORT PROCEDURE: MYOCARDIAL METABOLISM PET IMAGING with MYOCARDIAL PERFUSION PET IMAGING (Rest-Only) CPT CODE: 76980, [id number] INDICATION: ischemic cardiomyopathy, assess myocardial viability CARDIOVASCULAR [...] Report Verified Date/Time: 01/20/2019 16:11:04 Reading Location: [address] Reading Room Performing Organization Address City/[facility] Phone Number [facility] * Bilirubin, direct (01/20/2019 3:34 AM CDT) Only the most recent of 3 results within the time period is included. Bilirubin, Direct 1.6 (H) 0.1 - 0.5 mg/dL [facility] Specimen Blood Performing Organization Address [facility] Phone Number [place] [phone] [place] [address] [phone] [place] [address] * TRANSFUSION SERVICE REPORT - SCAN (01/18/2019 6:06 PM CDT) Narrative Performed At * ECG 12 lead (01/18/2019 2:30 PM CDT) Specimen Narrative Performed At Ventricular Rate 87 BPM [facility] Atrial Rate 105 BPM QRS Duration 178 ms Q-T Interval 444 ms QTC Calculation(Bazett) 534 ms P Groton 108 degrees R Groton 162 degrees T Groton -7 degrees AV dual-paced rhythm with frequent ventricular-paced complexes and with occasional Premature ventricular complexes Biventricular pacemaker detected Abnormal ECG Confirmed by MD Anthony Roberto ([id number]) on 01/19/2019 11:02:40 AM Procedure Note Interface, External Ris In - 01/19/2019 11:02 AM CDT Ventricular Rate 87 BPM Atrial Rate 105 BPM QRS Duration 178 ms Q-T Interval 444 ms QTC Calculation(Bazett) 534 ms P Groton 108 degrees R Groton 162 degrees T Groton -7 degrees AV dual-paced rhythm with frequent [...] CK 764 (H) 29 - 200 U/L [facility] Specimen Blood Performing Organization Address City/[facility]/Zipcode Phone Number [facility] [address] [place] [address] [facility] * Ammonia (01/18/2019 1:45 PM CDT) Only the most recent of 3 results within the time period is included. Ammonia 56Comment: Specimen moderately 18 - 72 mol/L [facility] hemolyzed [facility] Specimen Blood Performing Organization Address [facility] Phone Number [facility] [address] [place] [address] [facility] * US doppler (01/18/2019 7:45 AM CDT) Specimen Narrative Performed At FINAL REPORT [facility] [employer] [facility] [employer] HISTORY : Transaminitis COMPARISON : None. COMMENT [...] MD Report Verified Date/Time:01/18/2019 10:18:51 Reading Location: [address] Ultrasound Reading Room Procedure Note Interface, [...] Report Verified Date/Time: 01/18/2019 10:18:51 Reading Location: [address] Ultrasound Reading Room Performing Organization Address City/State/Zipcode Phone Number [facility] [employer] [facility] * US abdomen complete (01/18/2019 7:45 AM CDT) Specimen Narrative Performed At FINAL REPORT [facility] [employer] HISTORY : Transaminitis COMPARISON : None. COMMENT [...] MD Report Verified Date/Time:01/18/2019 10:18:51 Reading Location: [facility] [id number] Ultrasound Reading Room Procedure Note Interface, [...] Report Verified Date/Time: 01/18/2019 10:18:51 Reading Location: [facility] [id number] Ultrasound Reading Room Performing Organization Address City/State/Zipcode Phone Number [facility] * ECHOCARDIOGRAM REPORT - SCAN (01/17/2019 9:24 PM CDT) Narrative Performed At * ICD Check (01/17/2019 3:30 PM CDT) Narrative Performed At Akua Singh RN 01/17/20193:30 PM Performed ICD interrogation per order.Preliminary report placed under cardiac studies in chart. 1. Normal device function AKUA SINGH RN 01/17/2019 3:30 PM [id number] * Basic Metabolic Panel (01/17/2019 1:54 PM CDT) Only the most recent of 2 results within the time period is included. Sodium 143 136 - 145 meq/L [facility] Potassium 3.8Comment: Specimen slightly 3.5 - 5.1 meq/L [facility] Chloride 109 (H) 98 - 107 meq/L [facility] CO2 25 22 - 29 meq/L [facility] BUN 32 (H) 7 - 21 mg/dL [facility] Creatinine 1.22Comment: Specimen slightly 0.57 - 1.25 mg/dL [facility] Glucose 131 (H) 70 - 105 mg/dL [facility] Calcium 8.8 8.4 - 10.2 mg/dL [facility] EGFR 59Comment: ESTIMATED GFR IS mL/min/1.73 sq m [facility] NOT ACCURATE CREATININE [facility] CLEARANCE IN PREDICTING GLOMERULAR FILTRATION RATE. ESTIMATED GFR IS NOT APPLICABLE FOR DIALYSIS PATIENTS. Specimen Blood Narrative Performed At Specimen slightly icteric [facility] Performing Organization Address City/[facility]/Zipcode Phone Number [facility] [address] * Troponin I (01/17/2019 12:33 PM CDT) Only the most recent of 3 results within the time period is included. Troponin I 0.09 (H) 0.00 - 0.03 ng/mL [facility] Specimen Blood Narrative Performed At Troponin I (TnI) levels must be interpreted in the context of the presenting [facility] symptoms and the clinical findings. Elevated TnI levels indicate myocardial [facility] damage, but are not specific for ischemic heart disease. Elevated TnI levels are seen in patients with other cardiac conditions (including myocarditis and congestive heart failure), and slight TnI elevations occur in patients with other conditions, including sepsis, renal failure, acidosis, acute neurological disease, and persistent tachyarrhythmia. Performing Organization Address [facility] Phone Number [address] * MRSA screen (01/17/2019 10:29 AM CDT) Result No MRSA isolated [facility] Specimen Nasal Performing Organization Address [facility]/Zipcode Phone Number [address] * Procalcitonin (01/17/2019 10:12 AM CDT) Procalcitonin 0.58 (H) <0.05 ng/mL [facility] Specimen Blood Narrative Performed At SEPSIS RISK (ng/mL) [facility] Low:0.05-0.50 [facility] Intermediate: 0.51-2.00 High: >=2.01 Performing Organization Address [facility] Phone Number [address] * Acetaminophen level (01/17/2019 10:12 AM CDT) Only the most recent of 2 results within the time period is included. Acetaminophen Level <5.7 (L)Comment: Specimen 10.0 - 30.0 ug/mL [facility] moderately hemolyzed [facility] Specimen Blood Narrative Performed At Therapeutic Range: 10.0-30.0 g/mL [facility] Toxic Levels:>200.0 g/mL [facility] Performing Organization Address City/State/Zipcode Phone Number [facility] [address] [place] [address] MEDICAL CENTER * 2D Echo W/Doppler(CW/PW/Color) (01/17/2019 1:59 AM CDT) Ejection Fraction [facility] ECHO [facility] Specimen Narrative Performed At Transthoracic Echocardiography Report (TTE) [facility] ECHO [facility] Demographics [facility] Patient NameANUJ HERNANDEZ Date of Study01/17/2019 Male Visit [id number] Unknown Room [id number] Number Date of 1950ReferrSybil Vazquez Physician Age [...] of Study 01/17/2019 Gender Male Visit Number [id number] Race Unknown Room Number 6101 Number Date of 1950 Referring Cali Vazquez Physician Age 68 year(s) Word Processor Technician Erin Frias [facility] Interpreting Vicki Ponce MD Physician [...] Estimated PASP: 56 mmHg Performing Organization Address [facility] Phone Number [facility] ECHO [facility] MKCKESSON CPACS * ABORH, manual (01/17/2019 1:01 AM CDT) ABO Grouping A [facility] Rh Factor POS [facility] Specimen Blood Performing Organization Address [facility] Phone Number [address] * Urea Nitrogen, random urine (01/17/2019 12:14 AM CDT) Urea Nitrogen, Ur 408 mg/dL [facility] Specimen Urine Narrative Performed At Reference Range: No Normals [facility] Performing Organization Address [facility] Phone Number [place] [phone] * Rapid drug screen (01/17/2019 12:14 AM CDT) Barbiturate Screen Negative Negative [facility] Benzodiazepine Screen Negative Negative [facility] Cocaine (Metab.) Screen Negative Negative [facility] Methadone Screen Negative Negative [facility] Opiate Screen Negative Negative [facility] Cannabinoid Screen Negative Negative [facility] Amph/Methamph Screen Negative Negative [facility] Phencyclidine Screen Negative Negative [facility] Oxycodone Screen Negative Negative [facility] Specimen Urine Narrative Performed At [facility] Cocaine 300 ng/mL [facility] Ulxlntcrdhw39 ng/mL Psmvhtssxcilgw318 ng/mL Barbiturate 200 ng/mL Evpgsakgopufh13 ng/mL Xldvhx898 ng/mL Methadone 300 ng/mL Amphetamine/ 1000 ng/mL Methamphetamine Oxycodone 300 ng/mL This assay provides an unconfirmed qualitative test result for the clinical management of patients in emergency situations. Chain of custody not maintained. Some uvlr-caw-rcsoqas medications, as well as adulterants, may cause inaccurate results. Clinical correlation should be applied. A more comprehensive drug screen or confirmation of a detected drug may be performed upon request. Performing Organization Address [facility] Phone Number [address] * Sodium, random urine (01/17/2019 12:14 AM CDT) Sodium Urine 63 meq/L [facility] Specimen Urine Narrative Performed At Reference Range: No Normals [facility] Performing Organization Address [facility] Phone Number [address] * Creatinine, random urine (01/17/2019 12:14 AM CDT) Creatinine, Ur 25.1 mg/dL [facility] Specimen Urine Narrative Performed At Reference Range: No Normals [facility] Performing Organization Address [facility] Phone Number [address] * T Spot TB (01/17/2019 12:07 [...] Address City/State/Zipcode Phone Number [facility] [address] [place] [address] LABORATORIES 100 * Blood Culture - Routine (Left Venipuncture) (01/17/2019 12:06 AM CDT) Only the most recent of 2 results within the time period is included. Result No growth in 5 days [facility] Specimen Blood Performing Organization Address City/[facility]/Zipcode Phone Number [address] * Type and screen, automated (01/17/2019 12:01 AM CDT) ABO/RH AUTOMATED (BEAKER) A POSITIVE [facility] Ab Scrn NEGATIVE [facility] Specimen Blood Performing Organization Address [facility] Phone Number [address] * Mitochondria M2 Antibody (IgG) (01/17/2019 12:01 AM CDT) Mitochondria M2 Ab <20.0 See Note: U [facility] Comment: [facility] Reference Range: NEGATIVE:< OR=20.0 EQUIVOCAL: 20.1-24.9 POSITIVE:> OR=25.0 Specimen Blood Narrative Performed At Performing Lab [facility] [employer] [id number] [place] [address] [place] Douglas MD, PhD, KALEIGH Performing Organization Address City/[facility] Centercode Phone Number [facility] [employer], [address] [facility] [place], [facility] [address] * HIV-1 Antigen with HIV-1/2 Antibody (01/17/2019 12:01 AM CDT) HIV-1 Antigen with HIV NON-REACTIVE Nonreactive [facility] 1&2 Antibody [facility] Specimen Blood Performing Organization Address [facility]/Zipcode Phone Number [address] [place], [place] [phone] [facility] * Cytomegalovirus antibody, IgM (01/17/2019 12:01 AM CDT) CMV IGM Negative Negative, Equivocal [facility] Specimen Blood Narrative Performed At CMV IgM Result Interpretation: [facility] </=0.8 Al Negative [facility] 0.9-1.0 Al Equivocal >/=1.1 Al Positive Performing Organization Address City/[facility] Centercode Phone Number [facility] [address] [place] [address] [facility] * Actin (Smooth Muscle) Antibody, IgG (01/17/2019 [...] Lab [facility] [employer] [address] [place] [id number] Krystal Douglas MD, PhD, KALEIGH Performing Organization Address [facility] Centercotn Phone Number [facility] [employer] [place], [address] [place], [place] [facility] [address] * [id number] (01/17/2019 12:01 AM CDT) A-1 Antitrypsin 177.90 90.00 - 200.00 mg/dL [facility] Specimen Blood Performing Organization Address City/[facility]/Zipcode Phone Number [facility] [address] [place] [address] [facility] * Ceruloplasmin (01/17/2019 12:01 AM CDT) Ceruloplasmin 41 (H) 18 - 36 mg/dL [facility] Comment: INCORPORATED Adults:Males: 18-36 mg/dL Fe males: 18-53 mg/dL Pediatrics: Males (mg/dL)Females (mg/dL) ------ 0-30 Days 8-25 3-28 31 Days-11 Month 15-481 5-43 1-3 Years2 554 4-6 Years2 -54 7-9 Years2 5 -48 10-12 [id number] 21-48 13-15 [id number] 21-46 16-18 [id number] 22-50 The pediatric ranges are derived from the following criteria: Kiki LAGOS, Roxie ULLOA, Nazia J et al Pediatric reference ranges for Fxiz-[id number] and ceruloplasmin. Clin. Chem 1997; 43:S1999 Pediatric Reference Ranges, 2nd., [place] Kikiet al. editors. [employer], [place], [place] 1997. Specimen Blood Narrative Performed At Performing Lab [facility] *[facility], [address] [place] [address] Stacie Henderson MD, PhD Performing Organization Address City/State/Zipcode Phone Number [facility] [place], [address] [place], [place] [facility] [employer] [address] * Hepatitis panel, acute (01/17/2019 12:01 AM CDT) Hep A IgM HEPATITIS A TEST NEGATIVE Nonreactive [facility] Hep B C IgM NON-REACTIVE Nonreactive [facility] Hepatitis C Ab NON-REACTIVE Nonreactive [facility] hepatitis B Surface Ag NON-REACTIVE Nonreactive [facility] Specimen Blood Performing Organization Address City/State/Zipcode Phone Number [facility] [address] [place] [address] [facility] * EBV-VCA antibody, IgM (01/17/2019 12:01 AM CDT) ASHVIN RUSH VIRAL CAPSID Negative Negative, Equivocal [facility] ANTIGEN IGM [facility] Specimen Blood Narrative Performed At Ashvin Rush Viral Capsid Antigen IgM Result Interpretation: [facility] </=0.8 Al Negative [facility] 0.9-1.0 Al Equivocal >/=1.1 Al Positive Performing Organization Address City/[facility] Centercode Phone Number [address] * EBV-VCA antibody, IgG (01/17/2019 12:01 AM CDT) ASHVIN RUSH VIRAL CAPSID Positive (A) Negative, Equivocal [facility] ANTIGEN IGG [facility] Specimen Blood Narrative Performed At Ashvin Rush Viral Capsid Antigen IgG Result Interpretation: [facility] </=0.8 Al Negative [facility] 0.9-1.0 Al Equivocal >/=1.1 Al Positive Performing Organization Address [facility] Centercotn Phone Number [address] * Hepatitis B core antibody, total (01/17/2019 12:01 AM CDT) Hep B Core Total Ab NON-REACTIVE Nonreactive [facility] Specimen Blood Performing Organization Address City/[facility] Phone Number [address] * RPR (01/17/2019 12:01 AM CDT) RPR Nonreactive Nonreactive [facility] Specimen Blood Performing Organization Address City/[facility] Centercode Phone Number [address] * Hepatitis B surface antibody (01/17/2019 12:01 AM CDT) Hep B S Ab <8.0 <8.0 mIU/mL [facility] Specimen Blood Performing Organization Address City/[facility] Centercode Phone Number [address] * Cytomegalovirus antibody, IgG (01/17/2019 12:01 AM CDT) CYTOMEGALOVIRUS, IGG Positive (A) Negative, Equivocal [facility] Specimen Blood Narrative Performed At CMV IgG Result Interpretation: [facility] </=0.8 Al Negative [facility] 0.9-1.0 Al Equivocal >/=1.1 AlPositive Performing Organization Address [facility] Centercotn Phone Number [address] * Fibrinogen (01/17/2019 12:01 AM CDT) Fibrinogen 232 225 - 434 mg/dl [facility] Specimen Blood Performing Organization Address [facility] Phone Number [address] * Anti-Nuclear Antibody (GELY) (01/17/2019 12:01 AM CDT) GELY Negative Negative [facility] Specimen Blood Narrative Performed At Test performed by IFA method. [facility] Test performed by IFA method. [facility] Performing Organization Address [facility] Phone Number [address] * Ethanol (01/17/2019 12:01 AM CDT) Ethanol Lvl <10 <=10 mg/dL [facility] Specimen Blood Performing Organization Address [facility] Phone Number [address] * Urinalysis w/Microscopic + Reflex to Culture (01/16/2019 11:18 PM CDT) Color, UA Light Yellow [facility] Clarity, UA Clear [facility] Specific Clear, UA 1.012 1.001 - 1.035 [facility] pH, UA 6.5 5.0 - 8.0 [facility] Protein, UA Negative Negative [facility] Glucose, UA Negative Negative [facility] Ketones, UA Negative Negative [facility] Bilirubin, UA Negative Negative [facility] Blood, UA Negative Negative [facility] Nitrite, UA Negative Negative [facility] Leukocytes, UA Negative Negative [facility] Urobilinogen, UA 0.2 0.2 - 1.0 mg/dL [facility] RBC, UA 4 /HPF [facility] WBC, UA <1 /HPF [facility] Bacteria, UA Rare [facility] Specimen Source [facility] Specimen Urine Performing Organization Address City/[facility] Centercode Phone Number [address] [address] [facility] * PT/aPTT (01/16/2019 11:15 PM CDT) Protime 31.3 (H) 11.7 - 14.7 seconds [facility] INR 3.0 <=5.9 [facility] PTT 37.5 (H) 22.5 - 36.0 seconds [facility] Specimen Blood Narrative Performed At RECOMMENDED COUMADIN/WARFARIN INR THERAPY RANGES [facility] STANDARD DOSE: 2.0 - 3.0 Includes: PROPHYLAXIS for venous thrombosis, [facility] systemic embolization; TREATMENT for venous thrombosis and/or pulmonary embolus. HIGH RISK: Target INR is 2.5-3.5 for patients with mechanical heart valves. Performing Organization Address City/[facility] Centercode Phone Number [place] [phone] [place] [address] [facility] * Blood gas, arterial (01/16/2019 11:15 PM CDT) pH, Arterial 7.53 (H) 7.35 - 7.45 [facility] pCO2, Arterial 26 (L) 35 - 45 mmHg [facility] pO2, Arterial 569 (H) 80 - 90 mmHg [facility] O2 Sat, Arterial 99.9 (H) 96.0 - 97.0 % [facility] HCO3, Arterial 21 21 - 29 mmol/L [facility] Base Excess, Arterial -0.6 -2.0 - 3.0 mmol/L [facility] Patient Temperature 37.5 C [facility] FIO2 100.0 % [facility] Specimen Blood, Arterial Performing Organization Address City/State/Zipcode Phone Number [facility] [address] [place], [place] [phone] [facility] after 02/01/2018 Insurance Payer Benefit Subscriber ID Type Phone Address Plan / Group [facility] xxxxxxxxx MEDICARE MGD CARE MEDICARE HMO Advance Directives For more information, please contact: [address] [phone] Date Inactivated Comments Code Status Date Activated [...]
[2019-02-02] MEDS ORDERED: SODIUM BICARBONATE 8.4% INJ 50 ML SYR IV STA (10:25)
[2019-02-02] MEDS ORDERED: SUCCINYLCHOLINE CHLORIDE 20 MG/ML 10ML VIAL IV STA (10:25)
[2019-02-02] MEDS ORDERED: ETOMIDATE 2 MG/ML 10 ML INJ IV STA (10:25)
--- NOTE | 2019-02-02 10:28 | Diagnostic Imaging Report ---
EXAMINATION: CHEST SINGLE (PORTABLE) INDICATION: Status post intubation. COMPARISON: None FINDINGS: TUBES and LINES: ET tube terminates 4.9 cm above the shannon. Left-sided pacemaker with leads overlying the right atrium and right ventricle. LUNGS: Moderate inflation of the lungs. Bilateral perihilar and interstitial opacities. Patchy opacities in the right lower lung zone. PLEURA: Small right pleural effusion. No evidence of pneumothorax. HEART AND MEDIASTINUM: The cardiomediastinal silhouette is mildly enlarged. Status post CABG. Atherosclerotic calcifications of the aortic arch. BONES AND SOFT TISSUES: No acute osseous abnormality. Status post median sternotomy. UPPER ABDOMEN: No free air under the diaphragm. IMPRESSION: ET tube terminates in mid trachea. No evidence of pneumothorax. Mild cardiomegaly and pulmonary interstitial edema. Patchy opacities at the right lung base could reflect alveolar edema or atelectasis, although early pneumonia is possible in the appropriate clinical setting. Signed by: Dr. Pravin Argueta MD on 02/02/2019 10:25 AM
[2019-02-02 10:30] LABS: ALANINE AMINOTRANSFERASE 38 IU/L (0-55); ALBUMIN/GLOBULIN RATIO 0.9 (0.8-2.0); ALKALINE PHOSPHATASE 71 IU/L (40-150); ANION GAP 11.8 mmol/L (8-16); BLOOD UREA NITROGEN 22 mg/dL (7-26); BUN/CREATININE RATIO 20 (6-25); CALCIUM 9.1 mg/dL (8.4-10.2); CARBON DIOXIDE 24 mmol/L (22-29); CHLORIDE 105 mmol/L (98-107); CREATINE KINASE 59 IU/L (30-200); CREATININE, SERUM 1.12 mg/dL (0.72-1.25); EST GLOMERULAR FILTRATION RATE > 60 ML/MIN (60-); GLUCOSE 162 mg/dL (74-118); MAGNESIUM 2.8 MG/DL (1.3-2.1); POTASSIUM 3.8 mmol/L (3.5-5.1); SODIUM 137 mmol/L (136-145)
[2019-02-02] MEDS ORDERED: EPINEPHRINE HCL SYRINGE IV ONE ×5 (10:30→18:15)
[2019-02-02] MEDS ORDERED: AMIODARONE HCL IV ONE (10:30)
[2019-02-02 10:40] LABS: B-TYPE NATRIURETIC PEPTIDE2 1136.1 pg/mL (0-100)
[2019-02-02] MEDS ORDERED: AMIODARONE HCL 150 MG in DEXTROSE 5% 100ML 100 ML IV ONE (10:45)
[2019-02-02] MEDS ORDERED: IOPAMIDOL 370 MG/ML 200 ML INFUS..BTL INJ ONE ×2 (10:52→10:54)
[2019-02-02] MEDS ORDERED: FUROSEMIDE INJ 10 MG/ML 4 ML VIAL ONE (11:34)
[2019-02-02] MEDS ORDERED: SODIUM CHLORIDE 0.9% 1000ML 1,000 ML ONE (11:47)
--- NOTE | 2019-02-02 12:28 | NUR ---
Patient to Room 191 via stretcher; mechanically ventilated, versed gtt, right groin dressing intact, dry, no apparent hematoma, no drainage. VSS, right radial A line intact, no drainage.
[2019-02-02] MEDS ORDERED: FUROSEMIDE INJ 100 MG in SODIUM CHLORIDE 0.9% 100 ML 90 ML IV SCH (12:30)
[2019-02-02 12:50] LABS: ABG HCO3 26 mmol/L (23-28); ABG PCO2 44 mmHg (41-51); ABG PH 7.38 (7.31-7.41); ABG PO2 307 mmHg (80-105)
--- NOTE | 2019-02-02 13:01 | NUR ---
SEE VITAL SHEET ADDED TO CHART AND STICKERED.
[2019-02-02] MEDS: MIDAZOLAM HCL 25 MG in SODIUM CHLORIDE 0.9% 50ML 45 ML IV PRN ×3 (13:40→17:08)
--- NOTE | 2019-02-02 13:44 | NUR ---
CAR COOPER TO BEDSIDE TO DISCUSS PLAN OF CARE WITH PT AND FAMILY. CM/SW ROLE AND CARE TRANSITIONS DISCUSSED. ANTICIPATED DC PLAN DISCUSSED ALONG WITH DURATION OF CARE. CM/SW DISCUSSED PATIENT'S RIGHT TO MAKE DECISIONS IN CARE. CM/SW WORK HOURS GIVEN PT LIVES WITH HIS BROTHER ELODIA STEPHEN ADMITTED FROM ER/[facility]/ER VISITS SINCE LAST ADMIT: [facility] CURRENT [facility] PCP DR GINGER DAVIS AT [facility] DME: WALKER, WHEELCHAIR, ELECTRIC SCOOTER, SHOWER CHAIR DC PLAN: TRANSFERING [facility] FOR POSSIBLE CABG/CARDIAC INTERVENTION
[2019-02-02] MEDS ORDERED: NOREPINEPHRINE 8 MG/D5W 250 ML 250 ML ONE (15:21)
--- NOTE | 2019-02-02 16:15 | NUR ---
Per patient brother, Feroz, patient is legally to Makenzie Hernandez [phone]. Patient has daughter in [facility], Delisa. [phone] and a son, Vel [phone].
--- NOTE | 2019-02-02 18:14 | NUR ---
Patient discharged for transfer to [facility] via [facility] ambulance per Dr Arnold Reis order. Patient in care of Hossein Gongora, Tutorial Laboratory Supervisor for [facility].
[2019-02-02] MEDS ORDERED: SUCCINYLCHOLINE 200 MG/10 ML SYR IV ONE (18:15)
[2019-02-02] MEDS ORDERED: SODIUM CHLORIDE 0.9% 1000 ML BAG IV ONE (18:15)
[2019-02-02] MEDS ORDERED: ETOMIDATE 40 MG/ 20ML VIAL IV ONE (18:15)
[2019-02-02] MEDS ORDERED: NOREPINEPHRINE INJ 4 MG/4 ML INJ ONE (18:15)
[2019-02-02] MEDS ORDERED: AMIODARONE HCL 150 MG/100 ML BAG IV ONE (18:15)
--- NOTE | 2019-02-02 18:31 | Pre Op History & Physical ---
REASON FOR ADMISSION: Ventricular tachycardia. HISTORY OF PRESENT ILLNESS: This is a 68-year-old man with a history of coronary artery disease status post coronary artery bypass graft surgery, chronic systolic congestive heart failure, status post implantable cardioverter-defibrillator, chronic kidney disease, hypertension, hyperlipidemia, and paroxysmal atrial fibrillation on anticoagulation. The patient evidently reported to his brother this morning at 7:00 a.m. that his ICD had shocked him. Upon arrival, EMS noted the patient to be in ventricular tachycardia and the ICD was not successfully defibrillated in the patient so he received two external defibrillations one at his home and one en route to the hospital. Upon arrival here, the patient was hypotensive, went back into ventricular tachycardia, started on amiodarone and became more acutely short of breath and required mechanical ventilation. The patient was taken to the cardiac catheterization laboratory where he was found to have ostial left main stenosis with a patent left internal mammary artery graft to his LAD. All saphenous vein grafts were occluded. His ejection fraction was 25% to 30% with elevated filling pressures. The patient was then transferred to the intensive care unit in guarded condition. REVIEW OF SYSTEMS: Unable to be obtained. PAST MEDICAL HISTORY: As stated above. PAST SURGICAL HISTORY: As stated above. PAST FAMILY HISTORY: Unknown. SOCIAL HISTORY: Unknown. ALLERGIES: IODINE. MEDICATIONS: See medications reconciliation form. PHYSICAL EXAMINATION: GENERAL: The patient is chronically ill-appearing male, no apparent distress, intubated and sedated. VITAL SIGNS: Temperature is 97.5, heart rate is 80, respirations are 14, blood pressure is 102/87, ox saturation is 100%. HEAD: Normocephalic, atraumatic. NECK: There is a central catheter in his right internal jugular. CARDIOVASCULAR: Regular rate and rhythm with occasional ectopy. LUNGS: Diminished breath sounds at bases. ABDOMEN: Soft, nondistended. EXTREMITIES: Trace edema. VASCULAR: Diminished pulses. NEUROLOGIC: Unable to assess due to sedation. LABORATORY DATA: Reviewed. Hemoglobin 11.5, creatinine 1.12. Lactic acid 27, troponin is 0.043. A 12-lead electrocardiogram shows sequential AV pacing with occasional nonsustained ventricular tachycardia. IMPRESSION: 1. Ventricular tachycardia storm. 2. Acute on chronic systolic congestive heart failure. 3. Coronary artery disease status post coronary artery bypass graft surgery with residual disease in the ostial left main. 4. Cardiogenic shock. 5. Acute respiratory failure. RECOMMENDATIONS: The patient will be admitted to the intensive care unit. I have already discussed with two vice president of communications in the [facility] for transfer to [facility]. They agreed to accept the patient. I discussed this with . We will continue amiodarone, Lasix, and norepinephrine infusions. Restart aspirin, statin, and Plavix. Further recommendations to follow. Warren Reis DO BM/MODL /[id number]
--- NOTE | 2019-02-03 00:33 | Operative Report ---
DATE OF PROCEDURE: SURGEON: Warren Reis DO PROCEDURES PERFORMED: 1. Selective coronary angiography x2. 2. Bypass angiography x4. 3. Left heart catheterization. 4. Arterial line placement. 5. Intravenous catheter placement. PREPROCEDURE DIAGNOSES: 1. Ventricular tachycardia storm. 2. Coronary artery disease, status post port coronary artery bypass graft surgery. 3. Chronic systolic congestive heart failure, status post implantable cardioverter-defibrillator. POSTPROCEDURE DIAGNOSES: 1. Ventricular tachycardia storm. 2. Coronary artery disease, status post port coronary artery bypass graft surgery. 3. Chronic systolic congestive heart failure, status post implantable cardioverter-defibrillator. ESTIMATED BLOOD LOSS: Less than 20 mL. SPECIMENS REMOVED: None. PROCEDURE IN DETAIL: After informed consent was obtained through the patient's family member, the patient was brought to the cardiac catheterization laboratory in an emergent fashion after being found to have VT storm requiring intubation. The patient was also hypotensive and placed on pressors. Bilateral groins were prepped and draped in the usual sterile fashion. A 2% lidocaine was infiltrated over the right anterior groin for local anesthesia. Using micropuncture needle, the right femoral artery was accessed via modified Seldinger technique and a 5-Gabonese sheath was placed. Next, diagnostic coronary angiography x2 was performed. Next, the left internal mammary angiography was performed. Next, a JR4 catheter was used to selectively engage all three saphenous vein graft stumps and images were performed. I crossed in the left ventricle with a pigtail catheter and left ventriculography was performed. Everything was subsequently removed from the body. I placed an arterial line in the right radial position. Next, using ultrasound guidance, I have placed a central venous catheter in the right internal jugular. The patient tolerated the procedure well with no immediate complications and transferred back to his room in stable condition. PROCEDURE FINDINGS: 1. Left main ostium has 50% to 60% severe stenosis. 2. The LAD is occluded proximally. The GODDARD was anastomosed to the midportion and provides flow into the distal LAD. 3. There is a left circumflex stent extending from the left main down into the proximal portion of this vessel. There is either ramus or high obtuse marginal vessel that is jailed by the stent with ostial 60% stenosis. There are two distal OM's, which are patent with luminal irregularities. 4. The right coronary artery is a small vessel, which is 100% occluded. The small right posterior descending vessel fills via collaterals from the LAD system. 5. There are three occluded saphenous vein grafts present. 6. The left internal mammary artery is patent and is anastomosed to the mid LAD. 7. Left ventricular end-diastolic pressure is elevated at 29 mmHg with no aortic valve gradient present upon pullback. 8. Severe left ventricular systolic function with an estimated ejection fraction of 25% to 30%. There is moderate to severe mitral regurgitation present. RECOMMENDATIONS: The patient presented with VT storm. He was found to have significant ostial left main disease, which was not intervened on at a previous admission in the [facility]. His GODDARD to his LAD is patent as is the left circumflex system. The patient will be placed on amiodarone, Lasix, and norepinephrine drips. He will remain intubated and sedated. The patient will need to be transferred to the [facility] for advanced heart failure therapies and high-risk percutaneous coronary intervention. DO EL Augustin/LEANNA /[id number]
== END 2019-02-02 18:16 | disposition short-term general hospital (02) | DRG 286 ==
LOC: ER 09:07 → CATH LAB V 09:58 → ICU 12:20
PROVIDERS: ADMIT Internal Medicine Cardiovascular Disease; ATTEND Internal Medicine Cardiovascular Disease
PROC: 4A023N7 Measurement of Cardiac Sampling and Pressure, Left Heart, Percutaneous Approach (ICD-10-PCS; principal; 2019-02-02)
PROC: B2131ZZ Fluoroscopy of Multiple Coronary Artery Bypass Grafts using Low Osmolar Contrast (ICD-10-PCS; 2019-02-02)
PROC: B2111ZZ Fluoroscopy of Multiple Coronary Arteries using Low Osmolar Contrast (ICD-10-PCS; 2019-02-02)
PROC: B2181ZZ Fluoroscopy of Left Internal Mammary Bypass Graft using Low Osmolar Contrast (ICD-10-PCS; 2019-02-02)
PROC: B2151ZZ Fluoroscopy of Left Heart using Low Osmolar Contrast (ICD-10-PCS; 2019-02-02)
PROC: 0BH17EZ Insertion of Endotracheal Airway into Trachea, Via Natural or Artificial Opening (ICD-10-PCS; 2019-02-02)
PROC: 5A1935Z Respiratory Ventilation, Less than 24 Consecutive Hours (ICD-10-PCS; 2019-02-02)
DX: I13.0 Hypertensive heart and chronic kidney disease with heart failure and stage 1 through stage 4 chronic kidney disease, or unspecified chronic kidney disease (principal); R57.0 Cardiogenic shock; J96.00 Acute respiratory failure, unspecified whether with hypoxia or hypercapnia; I50.23 Acute on chronic systolic (congestive) heart failure; Z95.1 Presence of aortocoronary bypass graft; I48.0 Paroxysmal atrial fibrillation; Z79.01 Long term (current) use of anticoagulants; N18.9 Chronic kidney disease, unspecified; Z95.810 Presence of automatic (implantable) cardiac defibrillator; I25.110 Atherosclerotic heart disease of native coronary artery with unstable angina pectoris; I25.710 Atherosclerosis of autologous vein coronary artery bypass graft(s) with unstable angina pectoris
CPT/HCPCS: 31500; 36415; 71045; 80053; 82550; 82553; 82805; 83605; 83735; 83880; 84484; 85025; 85610; 85730; 87040; 92950; 93005; 93459; 94003; 99285; C1751; C1760; C1766; C1769; J0171; J0330; J1940; J2250; J7030; Q9967